=== PATIENT | female | born 1940 | race Caucasian/White ===

== ENCOUNTER 2021-07-02 18:27 | Inpatient (IN) | payer MEDICARE, BC ==
[2021-07-02] MEDS ORDERED: Sodium Chloride 0.9% 1,000 ML IV ONE (19:10)
[2021-07-02] MEDS ORDERED: Sodium Chloride 0.9% 2.5 ML Syringe FLUSH PRN (19:10)
[2021-07-02] MEDS ORDERED: Sodium Chloride 0.9% 10 ML Syringe FLUSH PRN (19:10)
[2021-07-02] MEDS ORDERED: Lactated Ringers 1,000 ML IV SCH ×2 (19:30)
[2021-07-02] MEDS ORDERED: Ondansetron 4 MG/2 ML SDV IVPUSH ONE (19:43)
[2021-07-02 19:49] LABS: CARBON DIOXIDE,CO2 14.7 mmol/L (21.0-32.0); POTASSIUM,K 4.4 mmol/L (3.5-5.1)
--- NOTE | 2021-07-02 20:44 | CR ---
INDICATION: Hypotension. TECHNIQUE: Chest 1 view. COMPARISON: Chest radiograph 10/31/2014. FINDINGS: No focal consolidation, pleural effusion, or pneumothorax. Normal heart size and pulmonary vascularity. Calcified tortuous aorta. Partially visualized right humerus hardware. Densities over the mid thoracic spine may represent vertebroplasty change. Thoracolumbar curve. Bilateral breast implants. IMPRESSION: No acute cardiopulmonary findings. Dictated by Bev Stevens MD @ 07/02/2021 8:42:41 PM (Electronically Signed)
--- NOTE | 2021-07-02 20:46 | CT ---
INDICATION: Pain following fall. CT HEAD WITHOUT CONTRAST TECHNIQUE: Multiple axial CT images were performed through the head without intravenous contrast administration. COMPARISON: No previous studies are currently available for comparison. FINDINGS: No acute intracranial hemorrhage is identified. No extra-axial collections are evident and there is no mass effect or midline shift. There is mild diffuse age-related brain atrophy. Ventricular size and configuration are within normal limits for the patient`s age. Marina-white differentiation is within normal limits. There is very mild patchy hypodensity in the periventricular white matter, a nonspecific finding which most likely reflects chronic small vessel ischemic change. There is a question of a small left frontal scalp contusion. Osseous structures are within normal limits and no fractures are seen. Included portions of the paranasal sinuses and mastoid air cells are normally aerated. IMPRESSION: 1. No acute intracranial abnormality identified. 2. Mild age-related brain atrophy and white matter hypodensity consistent with chronic small vessel ischemic change. KELI SCHMIDT MD [facility] Please note that all CT scans at this facility use dose modulation, iterative reconstruction, and/or weight-based dosing when appropriate to reduce radiation dose to as low as reasonably achievable. Dictated by: Giorgio Schmidt MD @ 07/02/2021 20:44:53 (Electronically Signed)
--- NOTE | 2021-07-02 21:03 | EDM.PDOC ---
ED HPI GENERAL MEDICAL PROBLEM - General Chief Complaint: General Stated Complaint: DEHYDRATION, RENAL FAILURE Time Seen by Provider: 07/02/21 19:02 - History of Present Illness INITIAL COMMENTS - FREE TEXT/NARRATIVE: HISTORY AND PHYSICAL: History of present illness: This is a 80-year-old female who presents ER today for further evaluation of persistent hypertension for the last 10 days. Patient's daughter is at bedside assisting with her history. She reports that her mother is baseline blood pressure is usually approximately 100-110 systolic, however over the last 10 days she reports that her mother's blood pressure has been in the mid 80s systolic. She reports that she spoke to her doctor yesterday to see if they can do something about her blood pressure and he recommended obtaining labs and reevaluation. Patient reports that her mother's labs came back with what appeared to be significant dehydration so her doctor recommended that she come to the emergency department for further evaluation of her dehydration. Patient had a bowel resection resulting in ileostomy approximately 1 month ago at [facility] secondary to "twisting of the bowel ". She reports that her mother was doing fairly well after her procedure up until a couple weeks ago. She reports that her mother has had decreased p.o. intake of both solids and liquids. They report that she has been started on dronabinol for her appetite and that has helped slightly. Daughter is also concerned that she been having significant amount of output from her ileostomy and feels that her mother is dehydrated both secondary to increased output and decreased p.o. input. She reports her mother has been feeling weak and dizzy and that on Friday she did fall down and hit her head. She reports that at that time her mother refused transfer to the ED for evaluation and CT scan. 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 Patient denies any recent fevers, shakes, chills, vomiting. She denies any recent cough cold or rhinorrhea. She denies any chest pain or shortness of breath. She denies any abdominal pain or discomfort. She does report that she has had nausea with decreased p.o. intake. She reports that she is had increased stool output from her ileostomy. She denies any melena or bright red blood in her stool. Patient does complain of dizziness and generalized weakness. Patient does have a significant bruising to her left forehead per her daughter. Daughter reports that she has not been started any new medications recently that would cause her blood pressure to drop. Review of systems: As per history of present illness and below otherwise all systems reviewed and negative. Past medical history: As per history of present illness and as reviewed below otherwise noncontributory. Surgical history: As per history of present illness and as reviewed below otherwise noncontributory. Social history: No reported history of drug abuse. Family history: As per history of present illness and as reviewed below otherwise noncontributory. Physical exam: This patient was seen and evaluated during the 2019 SARS-CoV-2 novel coronavirus pandemic period. Community viral transmission is ongoing at time of this encounter and the emergency department is operating under pandemic response procedures. Constitutional: Patient is oriented to person, place, and time. Appears well- developed and well-nourished. No distress. HEENT: Moist mucous membranes Head: Normocephalic and atraumatic Eyes: Right eye exhibits no discharge. Left eye exhibits no discharge. No scleral icterus Neck: Normal range of motion. No tracheal deviation present. Cardiovascular: Normal rate and regular rhythm. Pulmonary: Effort normal, no respiratory distress. Abd: Soft, nondistended, no rebound/guarding, no psoas or obturator signs, no tenderness at Mcberney's point, no Guthrie's sign. Pt does not present with an exam that would be consistent with an acute surgical abdomen at this time. Nontender to palpation. Musculoskeletal: Normal range of motion Neurologic: Alert and oriented to person, place and time. Skin: [place], warm and dry. Psychiatric: Normal mood and affect. Behavior is normal. Judgment and thought content normal. Nursing note and vital signs have been reviewed Diagnostics: Patient's labs are significant for a white blood cell count of 10, hemoglobin of 10.5/30.2. Patient has a sodium of 131. Her BUN and creatinine with 74 and 2.2 which is significantly elevated at her baseline per the daughter. Patient has a bicarb of 15. Patient's anion gap is 17. Patient did have a lipase of 753. Patient's vital signs in the ER were significant for a blood pressure of 67/40 on arrival. After IV hydration her blood pressure is currently 94/50. CT the head reveals no acute intracranial abnormality. There is mild age- related brain atrophy and white matter hypodensity consistent with chronic small vessel ischemic changes. Chest x-ray reveals no significant pathology. Therapeutics: Zofran 4 mg IV to assist her with her nausea LR x2 L secondary to dehydration and hypotension Assessment and plan: Is an 80-year-old female who presents ER today secondary to hypotension and dehydration. Patient is status post bowel resection approximately 1 month ago with an ileostomy that appears to have increased output. Daughter reports that she is given an antidiarrhea medication once a day to assist with the increased output. Patient also has decreased p.o. intake and has been given antinausea medicines at home to assist with that. Despite optimizing therapy at home, the patient still feels extremely weak and dizzy and her blood pressure has been lo w. Patient had labs drawn today as an outpatient and revealed an elevated BUN and creatinine consistent with dehydration. Given the patient's severe dehydration, I feel patient would benefit from ad mission to assist her with optimizing oral intake and decreasing ileostomy output prior to discharge. Patient did feel weak and dizzy on Friday and did have an episode of falling while on Xarelto. Patient CT scan of her head was unremarkable. Definitive disposition and diagnosis as appropriate pending reevaluation and review of above. back Pain Score (Numeric/FACES): 4 - Related Data Allergies Allergy/AdvReac Type Severity Reaction Status Date / Time No Known Allergies Allergy Verified 07/02/21 18:51 Home Meds: Home Meds Melatonin 1 tab PO BEDTIME 07/02/21 [History] Mirtazapine 45 mg PO BEDTIME 07/02/21 [History] Ondansetron [Zofran ODT] 1 tab PO DAILY PRN 07/02/21 [History] Rivaroxaban [Xarelto] 20 mg PO DAILY 07/02/21 [History] Rosuvastatin [Crestor] 20 mg PO DAILY 07/02/21 [History] Sertraline [Zoloft] 100 mg PO DAILY 07/02/21 [History] dronabinoL [Dronabinol] 10 mg PO DAILY 07/02/21 [History] Past Medical History Cardiovascular History: Reports: Blood Clots/VTE/DVT Genitourinary History: Reports: Other (See Below) Other Genitourinary History: [employer]PERINTENDENT History: Reports: Musculoskeletal History: Reports: Arthritis, Back Pain, Chronic Psychiatric History: Reports: Anxiety, Depression Endocrine/Metabolic History: Reports: Hypothyroidism - Past Surgical History GI Surgical History: Reports: Cholecystectomy, Other (See Below) Other GI Surgeries/Procedures: Hemicolectomy Musculoskeletal Surgical History: Reports: Shoulder Surgery Social & Family History - Family History Family Medical History: No Pertinent Family History - Tobacco Use Tobacco Use Status *Q: Never Tobacco User - Recreational Drug Use Recreational Drug Use: No ED ROS GENERAL - Review of Systems Review Of Systems: See Below ED EXAM, GENERAL - Physical Exam Exam: See Below #1 Interpretation EKG Interpretation Comments: July 02, 2021 10:28 PM: EKG: As interpreted by ER physician: [place]: Nonspecific ST-T wave abnormalities Normal axis No evidence of ST elevation IN Normal sinus rhythm heart rate of 71 Course - Vital Signs Last Recorded V/S: Last Vital Signs Temp 98.2 F 07/03/21 04:35 Pulse 67 07/03/21 04:35 Resp 18 07/03/21 04:35 BP 88/44 L 07/03/21 04:35 Pulse Ox 96 07/03/21 04:35 - Orders/Labs/Meds Orders: Active Orders 24 hr Category Date Time Status Vaccine to be Administered/Admin Charge [RC] ASDIRECTED Care 07/03/21 00:22 Active CULTURE BLOOD [BC] Stat Lab 07/02/21 19:15 Received CULTURE BLOOD [BC] Stat Lab 07/02/21 19:37 Results FLU Vacc [id number](65YR UP)/PF [Fluzone High-Dose Quad Med 07/03/21 10:00 Once 2020-] 240 mcg IM .ONCE ONE Lactated Ringers [Ringers, Lactated] 1,000 ml Med 07/02/21 19:30 Active IV .BOLUS Lactated Ringers [Ringers, Lactated] 1,000 ml Med 07/02/21 19:30 Active IV .BOLUS Loperamide [Imodium] Med 07/03/21 00:40 Active 2 mg PO Q6H PRN Melatonin Med 07/03/21 21:00 Active 9 mg PO BEDTIME Mirtazapine [Remeron] Med 07/03/21 21:00 Active 45 mg PO BEDTIME Rivaroxaban [Xarelto] Med 07/03/21 09:00 Pending 20 mg PO DAILY Rosuvastatin [Crestor] Med 07/03/21 09:00 Active 20 mg PO DAILY Sertraline [Zoloft] Med 07/03/21 09:00 Active 100 mg PO DAILY Sodium Chloride 0.9% [Saline Flush] Med 07/02/21 19:10 Active 10 ml FLUSH ASDIRECTED PRN Sodium Chloride 0.9% [Saline Flush] Med 07/02/21 19:10 Active 2.5 ml FLUSH ASDIRECTED PRN Blood Culture x2 Reflex Set [OM.PC] Stat Ot 07/02/21 19:11 Ordered Saline Lock Insert [OM.PC] Stat Ot 07/02/21 19:11 Ordered Medication Orders Acetaminophen (Acetaminophen 325 Mg Tab) 650 mg PO Q4H PRN PRN Reason: Pain (Mild 1-3)/fever Lactated Ringer's (Ringers, Lactated) 1,000 mls @ 999 mls/hr IV .BOLUS [facility] Last Admin: 07/02/21 20:40 Dose: 999 mls/hr Documented by: MIANMOR Lactated Ringer's (Ringers, Lactated) 1,000 mls @ 999 mls/hr IV .BOLUS VIRGEN Last Admin: 07/02/21 22:36 Dose: 999 mls/hr Documented by: MIANMOR Sodium Chloride (Normal Saline) 1,000 mls @ 125 mls/hr IV ASDIRECTED [facility] Last Admin: 07/03/21 01:34 Dose: 125 mls/hr Documented by: CRESCENCIO Ceftriaxone Sodium/Dextrose (Rocephin In Dextrose,Iso-Osm 1 Gm/50 Ml) 50 mls @ 50 mls/hr IV Q24H [facility] Last Admin: 07/03/21 01:30 Dose: 50 mls/hr Documented by: CRESCENCIO Influenza Virus Vaccine (Flu Vacc [id number](65yr Up)/Pf 240 Mcg/0.7 Ml Syringe) 240 mcg IM .ONCE ONE Stop: 07/03/21 10:01 Loperamide HCl (Loperamide 2 Mg Cap) 2 mg PO Q6H PRN PRN Reason: Diarrhea Melatonin (Melatonin 3 Mg Tab) 9 mg PO BEDTIME VIRGEN Mirtazapine (Mirtazapine 15 Mg Tab) 45 mg PO BEDTIME VIRGEN Non-Formulary Medication (Rivaroxaban [Xarelto]) 20 mg PO DAILY VIRGEN Rosuvastatin Calcium (Rosuvastatin 10 Mg Tab) 20 mg PO DAILY VIRGEN Sertraline HCl (Sertraline 100 Mg Tab) 100 mg PO DAILY VIRGEN Sodium Chloride (Sodium Chloride 0.9% 10 Ml Syringe) 10 ml FLUSH ASDIRECTED PRN PRN Reason: Keep Vein Open Last Admin: 07/02/21 20:41 Dose: 10 ml Documented by: SERGIO Sodium Chloride (Sodium Chloride 0.9% 2.5 Ml Syringe) 2.5 ml FLUSH ASDIRECTED PRN PRN Reason: Keep Vein Open Last Admin: 07/02/21 20:41 Dose: 2.5 ml Documented by: SERGIO Labs: Laboratory Tests 07/02/21 07/02/21 07/02/21 Range/Units 19:15 19:15 19:15 WBC 10.56 (4.0-11.0) K/uL RBC 3.37 L (4.30-5.90) M/uL Hgb 10.5 L (12.0-16.0) g/dL Hct 30.2 L (36.0-46.0) % MCV 89.6 (80.0-98.0) fL MCH 31.2 (27.0-32.0) pg MCHC 34.8 (31.0-37.0) g/dL RDW Std Deviation 48.3 (28.0-62.0) fl RDW Coeff of Sofia 15 (11.0-15.0) % Plt Count 177 (150-400) K/uL MPV 10.40 (7.40-12.00) fL Neut % (Auto) 79.6 (48.0-80.0) % Lymph % (Auto) 14.8 L (16.0-40.0) % [place] % (Auto) 4.8 (0.0-15.0) % Eos % (Auto) 0.6 (0.0-7.0) % Baso % (Auto) 0.2 (0.0-1.5) % Neut # (Auto) 8.4 H (1.4-5.7) K/uL Lymph # (Auto) 1.6 (0.6-2.4) K/uL [place] # (Auto) 0.5 (0.0-0.8) K/uL Eos # (Auto) 0.1 (0.0-0.7) K/uL Baso # (Auto) 0.0 (0.0-0.1) K/uL Nucleated RBC % 0.0 /100WBC Nucleated RBCs # 0 K/uL Sodium 131 L (136-145) mmol/L Potassium 4.4 (3.5-5.1) mmol/L Chloride 99 (98-107) mmol/L Carbon Dioxide 14.7 L (21.0-32.0) mmol/L BUN 74 H (7.0-18.0) mg/dL Creatinine 2.2 H (0.6-1.0) mg/dL Est Cr Clr Drug Dosing 13.21 mL/min Estimated GFR (MDRD) 21.4 ml/min Glucose 135 H (74-106) mg/dL Lactic Acid 1.8 (0.4-2.0) mmol/L Calcium 9.0 (8.5-10.1) mg/dL Magnesium 2.6 H (1.8-2.4) mg/dL Total Bilirubin 0.2 (0.2-1.0) mg/dL AST 27 (15-37) IU/L ALT 30 (14-63) IU/L Alkaline Phosphatase 96 (46-116) U/L Total Protein 7.0 (6.4-8.2) g/dL Albumin 3.4 (3.4-5.0) g/dL Globulin 3.6 (2.6-4.0) g/dL Albumin/Globulin Ratio 0.9 (0.9-1.6) Lipase 753 H (73-393) U/L Urine Color Urine Appearance Urine pH (5.0-8.0) Ur Specific [place] (1.001-1.035) Urine Protein (NEGATIVE) mg/dL Urine Glucose (UA) (NEGATIVE) mg/dL Urine Ketones (NEGATIVE) mg/dL Urine Occult Blood (NEGATIVE) Urine Nitrite (NEGATIVE) Urine Bilirubin (NEGATIVE) Urine Urobilinogen (<2.0) EU/dL Ur Leukocyte Esterase (NEGATIVE) U Hyaline Cast (Auto) (0-2/LPF) Urine RBC (0-2/HPF) Urine WBC (0-5/HPF) Ur Epithelial Cells (NONE-FEW) Urine Bacteria (NEGATIVE) SARS-CoV-2 RNA (BEAU) (NEGATIVE) 07/02/21 07/02/21 Range/Units 20:19 23:48 WBC (4.0-11.0) K/uL RBC (4.30-5.90) M/uL Hgb (12.0-16.0) g/dL Hct (36.0-46.0) % MCV (80.0-98.0) fL MCH (27.0-32.0) pg MCHC (31.0-37.0) g/dL RDW Std Deviation (28.0-62.0) fl RDW Coeff of Sofia (11.0-15.0) % Plt Count (150-400) K/uL MPV (7.40-12.00) fL Neut % (Auto) (48.0-80.0) % Lymph % (Auto) (16.0-40.0) % [place] % (Auto) (0.0-15.0) % Eos % (Auto) (0.0-7.0) % Baso % (Auto) (0.0-1.5) % Neut # (Auto) (1.4-5.7) K/uL Lymph # (Auto) (0.6-2.4) K/uL [place] # (Auto) (0.0-0.8) K/uL Eos # (Auto) (0.0-0.7) K/uL Baso # (Auto) (0.0-0.1) K/uL Nucleated RBC % /100WBC Nucleated RBCs # K/uL Sodium (136-145) mmol/L Potassium (3.5-5.1) mmol/L Chloride (98-107) mmol/L Carbon Dioxide (21.0-32.0) mmol/L BUN (7.0-18.0) mg/dL Creatinine (0.6-1.0) mg/dL Est Cr Clr Drug Dosing mL/min Estimated GFR (MDRD) ml/min Glucose (74-106) mg/dL Lactic Acid (0.4-2.0) mmol/L Calcium (8.5-10.1) mg/dL Magnesium (1.8-2.4) mg/dL Total Bilirubin (0.2-1.0) mg/dL AST (15-37) IU/L ALT (14-63) IU/L Alkaline Phosphatase (46-116) U/L Total Protein (6.4-8.2) g/dL Albumin (3.4-5.0) g/dL Globulin (2.6-4.0) g/dL Albumin/Globulin Ratio (0.9-1.6) Lipase (73-393) U/L Urine Color YELLOW Urine Appearance SLT CLOUDY Urine pH 6.0 (5.0-8.0) Ur Specific [place] 1.020 (1.001-1.035) Urine Protein TRACE H (NEGATIVE) mg/dL Urine Glucose (UA) NEGATIVE (NEGATIVE) mg/dL Urine Ketones NEGATIVE (NEGATIVE) mg/dL Urine Occult Blood TRACE-INTACT H (NEGATIVE) Urine Nitrite NEGATIVE (NEGATIVE) Urine Bilirubin NEGATIVE (NEGATIVE) Urine Urobilinogen 0.2 (<2.0) EU/dL Ur Leukocyte Esterase MODERATE H (NEGATIVE) U Hyaline Cast (Auto) 0-2 (0-2/LPF) Urine RBC 1-3 (0-2/HPF) Urine WBC 20-30 (0-5/HPF) Ur Epithelial Cells OCCASIONAL (NONE-FEW) Urine Bacteria FEW (NEGATIVE) SARS-CoV-2 RNA (BEAU) NEGATIVE (NEGATIVE) Meds: Medications Generic Name Dose Route Start Last Admin Trade Name Freq PRN Reason Stop Dose Admin Acetaminophen 650 mg 07/03/21 00:41 Acetaminophen 325 Mg Tab PO Q4H PRN Pain (Mild 1-3)/fever Lactated Ringer's 1,000 mls @ 999 mls/hr 07/02/21 19:30 07/02/21 20:40 Ringers, Lactated IV 999 mls/hr .BOLUS VIRGEN Administration Lactated Ringer's 1,000 mls @ 999 mls/hr 07/02/21 19:30 07/02/21 22:36 Ringers, Lactated IV 999 mls/hr .BOLUS VIRGEN Administration Sodium Chloride 1,000 mls @ 125 mls/hr 07/03/21 00:45 07/03/21 01:34 Normal Saline IV 125 mls/hr ASDIRECTED VIRGEN Administration Ceftriaxone Sodium/Dextrose 50 mls @ 50 mls/hr 07/03/21 02:00 07/03/21 01:30 Rocephin In Dextrose,Iso-Osm 1 Gm/50 Ml IV 50 mls/hr Q24H VIRGEN Administration Influenza Virus Vaccine 240 mcg 07/03/21 10:00 Flu Vacc [id number](65yr Up)/Pf 240 Mcg/0.7 Ml Syringe IM 07/03/21 10:01 .ONCE ONE Loperamide HCl 2 mg 07/03/21 00:40 Loperamide 2 Mg Cap PO Q6H PRN Diarrhea Melatonin 9 mg 07/03/21 21:00 Melatonin 3 Mg Tab PO BEDTIME VIRGEN Mirtazapine 45 mg 07/03/21 21:00 Mirtazapine 15 Mg Tab PO BEDTIME VIRGEN Non-Formulary Medication 20 mg 07/03/21 09:00 Rivaroxaban [Xarelto] PO DAILY [facility] Rosuvastatin Calcium 20 mg 07/03/21 09:00 Rosuvastatin 10 Mg Tab PO DAILY [facility] Sertraline HCl 100 mg 07/03/21 09:00 Sertraline 100 Mg Tab PO DAILY VIRGEN Sodium Chloride 10 ml 07/02/21 19:10 07/02/21 20:41 Sodium Chloride 0.9% 10 Ml Syringe FLUSH 10 ml ASDIRECTED PRN Administration Keep Vein Open Sodium Chloride 2.5 ml 07/02/21 19:10 07/02/21 20:41 Sodium Chloride 0.9% 2.5 Ml Syringe FLUSH 2.5 ml ASDIRECTED PRN Administration Keep Vein Open Discontinued Medications Generic Name Dose Route Start Last Admin Trade Name Freq PRN Reason Stop Dose Admin Sodium Chloride 1,000 mls @ 999 mls/hr 07/02/21 19:10 07/02/21 19:30 Normal Saline IV 07/02/21 20:10 999 mls/hr .Bolus ONE Administration Ceftriaxone Sodium 1 gm/ 50 mls @ 100 mls/hr 07/03/21 01:00 Sodium Chloride IV Q24H VIRGEN Ceftriaxone Sodium/Dextrose Confirm 07/03/21 01:09 Rocephin In Dextrose,Iso-Osm 1 Gm/50 Ml Administered 07/03/21 01:10 Dose 50 mls @ as directed .ROUTE .STK-MED ONE Influenza Virus Vaccine 1 each 07/03/21 00:20 Pharmacy To Dose - Influenza Vaccine IM 07/03/21 00:21 ONETIME ONE Morphine Sulfate 2 mg 07/02/21 22:21 07/02/21 22:43 Morphine 4 Mg/Ml Syringe IVPUSH 07/02/21 22:22 Not Given ONETIME ONE Ondansetron HCl 4 mg 07/02/21 19:43 07/02/21 20:40 Ondansetron 4 Mg/2 Ml Sdv IVPUSH 07/02/21 19:44 4 mg ONETIME ONE Administration Departure - Departure Time of Disposition: 22:00 Disposition: Refer to Observation Condition: Good Clinical Impression: Dehydration, Hypotension - Discharge Information Sepsis Event Note (ED) - Evaluation Sepsis Screening Result: No Definite Risk - Focused Exam Vital Signs: Vital Signs Temp Pulse Resp BP Pulse Ox 07/02/21 22:48 74 18 96/57 L 99 07/02/21 21:20 84 100/59 L 98 07/02/21 20:42 75 16 94/50 L 99 07/02/21 18:47 99.1 F 89 22 H 67/40 L 100 - My Orders Last 24 Hours: My Active Orders 07/02/21 19:10 Sodium Chloride 0.9% [Saline Flush] 10 ml FLUSH ASDIRECTED PRN Sodium Chloride 0.9% [Saline Flush] 2.5 ml FLUSH ASDIRECTED PRN 07/02/21 19:11 Blood Culture x2 Reflex Set [OM.PC] Stat Saline Lock Insert [OM.PC] Stat 07/02/21 19:15 CULTURE BLOOD [BC] Stat 07/02/21 19:30 Lactated Ringers [Ringers, Lactated] 1,000 ml IV .BOLUS Lactated Ringers [Ringers, Lactated] 1,000 ml IV .BOLUS 07/02/21 19:37 CULTURE BLOOD [BC] Stat - Assessment/Plan Last 24 Hours: My Active Orders 07/02/21 19:10 Sodium Chloride 0.9% [Saline Flush] 10 ml FLUSH ASDIRECTED PRN Sodium Chloride 0.9% [Saline Flush] 2.5 ml FLUSH ASDIRECTED PRN 07/02/21 19:11 Blood Culture x2 Reflex Set [OM.PC] Stat Saline Lock Insert [OM.PC] Stat 07/02/21 19:15 CULTURE BLOOD [BC] Stat 07/02/21 19:30 Lactated Ringers [Ringers, Lactated] 1,000 ml IV .BOLUS Lactated Ringers [Ringers, Lactated] 1,000 ml IV .BOLUS 07/02/21 19:37 CULTURE BLOOD [BC] Stat
--- NOTE | 2021-07-02 22:16 | CT ---
INDICATION: Abdominal pain. Elevated lipase. COMPARISON: None. TECHNIQUE: CT of the abdomen and pelvis without contrast. FINDINGS: Imaged lung bases are unremarkable. Bilateral breast implants. Noncontrast evaluation of the liver, spleen and adrenal glands are unremarkable. Cholecystectomy. Noncontrast appearance of the pancreas is unremarkable with no significant fat stranding. No obstructing renal calculus or hydronephrosis. Atherosclerotic abdominal aorta. Diverticulosis. Right-sided ostomy. Pessary. Distended bladder. No bowel obstruction. No enlarged abdominal or pelvic lymph nodes. Bones are demineralized. Degenerative changes in the spine. Age-indeterminate compression deformity of L1 vertebral body. IMPRESSION: 1. Noncontrast appearance of the pancreas is unremarkable. 2. Age-indeterminate compression fracture deformity of L1. 3. Diverticulosis. Please note that all CT scans at this facility use dose modulation, iterative reconstruction, and/or weight-based dosing when appropriate to reduce radiation dose to as low as reasonably achievable. Dictated by Jaycob Stapleton MD @ 07/02/2021 10:15:06 PM (Electronically Signed)
[2021-07-02] MEDS ORDERED: Morphine 4 MG/ML Syringe IVPUSH ONE (22:21)
[2021-07-03] MEDS ORDERED: Loperamide 2 MG Cap PO PRN (00:40)
--- NOTE | 2021-07-03 00:47 | PCM.HP.2 ---
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 She presents to the ED with complaint of lower blood pressures. PAtient has been taking antidiarrhea medicaitions due to high ostomy output. PAtient has not been eating or drinking much and has had low urine output. She has had generalized weakness. She denies any abominal pain. Blood pressures have been in the 60s sytolic in the ED but have improved after IV hydration. back Pain Score (Numeric/FACES): 4 - Related Data Allergies/Adverse Reactions: Allergies Allergy/AdvReac Type Severity Reaction Status Date / Time No Known Allergies Allergy Verified 07/02/21 18:51 Home Medications: Home Meds Melatonin 1 tab PO BEDTIME 07/02/21 [History] Mirtazapine 45 mg PO BEDTIME 07/02/21 [History] Ondansetron [Zofran ODT] 1 tab PO DAILY PRN 07/02/21 [History] Rivaroxaban [Xarelto] 20 mg PO DAILY 07/02/21 [History] Rosuvastatin [Crestor] 20 mg PO DAILY 07/02/21 [History] Sertraline [Zoloft] 100 mg PO DAILY 07/02/21 [History] dronabinoL [Dronabinol] 10 mg PO DAILY 07/02/21 [History] Past Medical History HEENT History: Reports: None Cardiovascular History: Reports: Blood Clots/VTE/DVT Gastrointestinal History: Reports: Bowel Obstruction Genitourinary History: Reports: Other (See Below) Other Genitourinary History: P[employer] History: Reports: Musculoskeletal History: Reports: Arthritis, Back Pain, Chronic Psychiatric History: Reports: Anxiety, Depression Endocrine/Metabolic History: Reports: Hypothyroidism - Infectious Disease History Infectious Disease History: Reports: Chicken Pox - Past Surgical History HEENT Surgical History: Reports: None Cardiovascular Surgical History: Reports: None GI Surgical History: Reports: Cholecystectomy, Other (See Below) Other GI Surgeries/Procedures: Hemicolectomy and ileostomy Female Surgical History: Reports: None Musculoskeletal Surgical History: Reports: Shoulder Surgery Social & Family History - Family History Family Medical History: No Pertinent Family History - Tobacco Use Tobacco Use Status *Q: Never Tobacco User Second Hand Smoke Exposure: No - Caffeine Use Caffeine Use: Reports: None - Recreational Drug Use Recreational Drug Use: No H&P Review of Systems - Review of Systems: Review Of Systems: Comprehensive ROS is negative, except as noted in HPI. Exam - Exam Exam: See Below - Vital Signs Vital Signs: Last Vital Signs Temp 37.3 C 07/02/21 18:47 Pulse 74 07/02/21 22:48 Resp 18 07/02/21 22:48 BP 96/57 L 07/02/21 22:48 Pulse Ox 99 07/02/21 22:48 Weight: 44.815 kg - Exam General: Alert, Oriented HEENT: Mucosa Moist & [place] Neck: Supple Lungs: Clear to Auscultation, Normal Respiratory Effort Cardiovascular: Regular Rate, Regular Rhythm GI/Abdominal Exam: Normal Bowel Sounds, Soft, Non-Tender Extremities: Non-Tender, No Pedal Edema Skin: Warm, Dry, Intact Neurological: No: Focal Deficit - Patient Data Lab Results Last 24 hrs: Laboratory Results - last 24 hr 07/02/21 07/02/21 07/02/21 Range/Units 19:15 19:15 19:15 WBC 10.56 (4.0-11.0) K/uL RBC 3.37 L (4.30-5.90) M/uL Hgb 10.5 L (12.0-16.0) g/dL Hct 30.2 L (36.0-46.0) % MCV 89.6 (80.0-98.0) fL MCH 31.2 (27.0-32.0) pg MCHC 34.8 (31.0-37.0) g/dL RDW Std Deviation 48.3 (28.0-62.0) fl RDW Coeff of Sofia 15 (11.0-15.0) % Plt Count 177 (150-400) K/uL MPV 10.40 (7.40-12.00) fL Neut % (Auto) 79.6 (48.0-80.0) % Lymph % (Auto) 14.8 L (16.0-40.0) % [place] % (Auto) 4.8 (0.0-15.0) % Eos % (Auto) 0.6 (0.0-7.0) % Baso % (Auto) 0.2 (0.0-1.5) % Neut # (Auto) 8.4 H (1.4-5.7) K/uL Lymph # (Auto) 1.6 (0.6-2.4) K/uL [place] # (Auto) 0.5 (0.0-0.8) K/uL Eos # (Auto) 0.1 (0.0-0.7) K/uL Baso # (Auto) 0.0 (0.0-0.1) K/uL Nucleated RBC % 0.0 /100WBC Nucleated RBCs # 0 K/uL Sodium 131 L (136-145) mmol/L Potassium 4.4 (3.5-5.1) mmol/L Chloride 99 (98-107) mmol/L Carbon Dioxide 14.7 L (21.0-32.0) mmol/L BUN 74 H (7.0-18.0) mg/dL Creatinine 2.2 H (0.6-1.0) mg/dL Est Cr Clr Drug Dosing 13.21 mL/min Estimated GFR (MDRD) 21.4 ml/min Glucose 135 H (74-106) mg/dL Lactic Acid 1.8 (0.4-2.0) mmol/L Calcium 9.0 (8.5-10.1) mg/dL Magnesium 2.6 H (1.8-2.4) mg/dL Total Bilirubin 0.2 (0.2-1.0) mg/dL AST 27 (15-37) IU/L ALT 30 (14-63) IU/L Alkaline Phosphatase 96 (46-116) U/L Total Protein 7.0 (6.4-8.2) g/dL Albumin 3.4 (3.4-5.0) g/dL Globulin 3.6 (2.6-4.0) g/dL Albumin/Globulin Ratio 0.9 (0.9-1.6) Lipase 753 H (73-393) U/L Urine Color Urine Appearance Urine pH (5.0-8.0) Ur Specific [place] (1.001-1.035) Urine Protein (NEGATIVE) mg/dL Urine Glucose (UA) (NEGATIVE) mg/dL Urine Ketones (NEGATIVE) mg/dL Urine Occult Blood (NEGATIVE) Urine Nitrite (NEGATIVE) Urine Bilirubin (NEGATIVE) Urine Urobilinogen (<2.0) EU/dL Ur Leukocyte Esterase (NEGATIVE) U Hyaline Cast (Auto) (0-2/LPF) Urine RBC (0-2/HPF) Urine WBC (0-5/HPF) Ur Epithelial Cells (NONE-FEW) Urine Bacteria (NEGATIVE) SARS-CoV-2 RNA (BEAU) (NEGATIVE) 07/02/21 07/02/21 Range/Units 20:19 23:48 WBC (4.0-11.0) K/uL RBC (4.30-5.90) M/uL Hgb (12.0-16.0) g/dL Hct (36.0-46.0) % MCV (80.0-98.0) fL MCH (27.0-32.0) pg MCHC (31.0-37.0) g/dL RDW Std Deviation (28.0-62.0) fl RDW Coeff of Sofia (11.0-15.0) % Plt Count (150-400) K/uL MPV (7.40-12.00) fL Neut % (Auto) (48.0-80.0) % Lymph % (Auto) (16.0-40.0) % [place] % (Auto) (0.0-15.0) % Eos % (Auto) (0.0-7.0) % Baso % (Auto) (0.0-1.5) % Neut # (Auto) (1.4-5.7) K/uL Lymph # (Auto) (0.6-2.4) K/uL [place] # (Auto) (0.0-0.8) K/uL Eos # (Auto) (0.0-0.7) K/uL Baso # (Auto) (0.0-0.1) K/uL Nucleated RBC % /100WBC Nucleated RBCs # K/uL Sodium (136-145) mmol/L Potassium (3.5-5.1) mmol/L Chloride (98-107) mmol/L Carbon Dioxide (21.0-32.0) mmol/L BUN (7.0-18.0) mg/dL Creatinine (0.6-1.0) mg/dL Est Cr Clr Drug Dosing mL/min Estimated GFR (MDRD) ml/min Glucose (74-106) mg/dL Lactic Acid (0.4-2.0) mmol/L Calcium (8.5-10.1) mg/dL Magnesium (1.8-2.4) mg/dL Total Bilirubin (0.2-1.0) mg/dL AST (15-37) IU/L ALT (14-63) IU/L Alkaline Phosphatase (46-116) U/L Total Protein (6.4-8.2) g/dL Albumin (3.4-5.0) g/dL Globulin (2.6-4.0) g/dL Albumin/Globulin Ratio (0.9-1.6) Lipase (73-393) U/L Urine Color YELLOW Urine Appearance SLT CLOUDY Urine pH 6.0 (5.0-8.0) Ur Specific [place] 1.020 (1.001-1.035) Urine Protein TRACE H (NEGATIVE) mg/dL Urine Glucose (UA) NEGATIVE (NEGATIVE) mg/dL Urine Ketones NEGATIVE (NEGATIVE) mg/dL Urine Occult Blood TRACE-INTACT H (NEGATIVE) Urine Nitrite NEGATIVE (NEGATIVE) Urine Bilirubin NEGATIVE (NEGATIVE) Urine Urobilinogen 0.2 (<2.0) EU/dL Ur Leukocyte Esterase MODERATE H (NEGATIVE) U Hyaline Cast (Auto) 0-2 (0-2/LPF) Urine RBC 1-3 (0-2/HPF) Urine WBC 20-30 (0-5/HPF) Ur Epithelial Cells OCCASIONAL (NONE-FEW) Urine Bacteria FEW (NEGATIVE) SARS-CoV-2 RNA (BEAU) NEGATIVE (NEGATIVE) Result Diagrams: 07/02/21 19:15 07/02/21 19:15 Jonel Results Last 24 hrs: Microbiology 07/02/21 19:37 Anaerobic Blood Culture - Final Blood - Venous - Lab Draw Sepsis Event Note - Evaluation Sepsis Screening Result: No Definite Risk - Focused Exam Vital Signs: Vital Signs Temp Pulse Resp BP Pulse Ox 07/02/21 22:48 74 18 96/57 L 99 07/02/21 21:20 84 100/59 L 98 07/02/21 20:42 75 16 94/50 L 99 07/02/21 18:47 37.3 C 89 22 H 67/40 L 100 - Problem List (1) UTI (urinary tract infection) SNOMED Code(s): 81121970 ICD Code: N39.0 - URINARY TRACT INFECTION, SITE NOT SPECIFIED Status: Acute Current Visit: Yes (2) Dehydration SNOMED Code(s): 59900585 ICD Code: E86.0 - DEHYDRATION Status: Acute Current Visit: Yes (3) Short gut syndrome SNOMED Code(s): 71560168 ICD Code: K91.2 - POSTSURGICAL MALABSORPTION, NOT ELSEWHERE CLASSIFIED Status: Acute Current Visit: Yes Problem List Initiated/Reviewed/Updated: Yes Orders Last 24hrs: Active Orders 24 hr Category Date Time Status Patient Status [ADT] Routine ADT 07/03/21 00:41 Ordered Antiembolic Devices [RC] PER UNIT ROUTINE Care 07/03/21 00:42 Ordered Intake and Output [RC] QSHIFT Care 07/03/21 00:42 Ordered Oxygen Therapy [RC] PRN Care 07/03/21 00:41 Ordered Up ad Gloria [RC] ASDIRECTED Care 07/03/21 00:41 Ordered VTE/DVT Education [RC] PER UNIT ROUTINE Care 07/03/21 00:41 Ordered Vaccine to be Administered/Admin Charge [RC] ASDIRECTED Care 07/03/21 00:22 Active Vital Signs [RC] Q4H Care 07/03/21 00:41 Ordered PT Evaluation and Treatment [CONS] Routine Cons 07/03/21 00:41 Ordered Regular Diet [DIET] Diet 07/03/21 Breakfast Ordered CBC WITH AUTO DIFF [HEME] AM Lab 07/03/21 05:11 Ordered COMPREHENSIVE METABOLIC PN,CMP [CHEM] AM Lab 07/03/21 05:11 Ordered CULTURE BLOOD [BC] Stat Lab 07/02/21 19:15 Received CULTURE BLOOD [BC] Stat Lab 07/02/21 19:37 Results Acetaminophen [TylenoL] Med 07/03/21 00:41 Ordered 650 mg PO Q4H PRN FLU Vacc [id number](65YR UP)/PF [Fluzone High-Dose Quad Med 07/03/21 10:00 Once ] 240 mcg IM .ONCE ONE Lactated Ringers [Ringers, Lactated] 1,000 ml Med 07/02/21 19:30 Active IV .BOLUS Lactated Ringers [Ringers, Lactated] 1,000 ml Med 07/02/21 19:30 Active IV .BOLUS Loperamide [Imodium] Med 07/03/21 00:40 Ordered 2 mg PO Q6H PRN Melatonin [Melatonin] Med 07/03/21 00:39 Ordered 1 tab PO BEDTIME Mirtazapine [Mirtazapine] Med 07/03/21 00:39 Ordered 45 mg PO BEDTIME Rivaroxaban [Xarelto] Med 07/03/21 09:00 Ordered 20 mg PO DAILY Rosuvastatin Med 07/03/21 09:00 Ordered 20 mg PO DAILY Sertraline [Zoloft] Med 07/03/21 09:00 Ordered 100 mg PO DAILY Sodium Chloride 0.9% @ 125 MLS/HR (1000ml) Med 07/03/21 00:45 Ordered Sodium Chloride 0.9% [Normal Saline] 1,000 ml IV ASDIRECTED Sodium Chloride 0.9% [Saline Flush] Med 07/02/21 19:10 Active 10 ml FLUSH ASDIRECTED PRN Sodium Chloride 0.9% [Saline Flush] Med 07/02/21 19:10 Active 2.5 ml FLUSH ASDIRECTED PRN cefTRIAXone [Rocephin] 1 gm Med 07/03/21 00:45 Ordered Sodium Chloride 0.9% [Normal Saline] 50 ml IV Q24H Blood Culture x2 Reflex Set [OM.PC] Stat Ot 07/02/21 19:11 Ordered Saline Lock Insert [OM.PC] Stat Ot 07/02/21 19:11 Ordered Sequential Compression Device [OM.PC] Per Unit Routine Ot 07/03/21 00:42 Ordered Resuscitation Status Routine Resus Stat 07/03/21 00:41 Ordered Medication Orders Lactated Ringer's (Ringers, Lactated) 1,000 mls @ 999 mls/hr IV .BOLUS VIRGEN Last Admin: 07/02/21 20:40 Dose: 999 mls/hr Documented by: MIANMOR Lactated Ringer's (Ringers, Lactated) 1,000 mls @ 999 mls/hr IV [facility]US [facility] Last Admin: 07/02/21 22:36 Dose: 999 mls/hr Documented by: VANCMOR Ceftriaxone Sodium 1 gm/ (Sodium Chloride) 50 mls @ 100 mls/hr IV Q24H [facility] Influenza Virus Vaccine (Flu Vacc [id number](65yr Up)/Pf 240 Mcg/0.7 Ml Syringe) 240 mcg IM .ONCE ONE Stop: 07/03/21 10:01 Loperamide HCl (Loperamide 2 Mg Cap) 2 mg PO Q6H PRN PRN Reason: Diarrhea Mirtazapine (Mirtazapine 15 Mg Tab) 45 mg PO BEDTIME VIRGEN Non-Formulary Medication (Rivaroxaban [Xarelto]) 20 mg PO DAILY [facility]IRGEN Non-Formulary Medication (Melatonin [Melatonin]) 1 tab PO BEDTIME [facility] Rosuvastatin Calcium (Rosuvastatin 10 Mg Tab) 20 mg PO DAILY [facility] Sertraline HCl (Sertraline 100 Mg Tab) 100 mg PO DAILY [facility] Sodium Chloride (Sodium Chloride 0.9% 10 Ml Syringe) 10 ml FLUSH ASDIRECTED PRN PRN Reason: Keep Vein Open Last Admin: 07/02/21 20:41 Dose: 10 ml Documented by: SERGIO Sodium Chloride (Sodium Chloride 0.9% 2.5 Ml Syringe) 2.5 ml FLUSH ASDIRECTED PRN PRN Reason: Keep Vein Open Last Admin: 07/02/21 20:41 Dose: 2.5 ml Documented by: SERGIO Assessment/Plan Comment:: 80 yo female admitted for dehydration and UTI. We will continue IV fluid resuscitation. We will treat UTI with Rocephin
[2021-07-03] MEDS ORDERED: cefTRIAXone 1 GM in Sodium Chloride 0.9% 50 ML IV SCH (01:00)
[2021-07-03] MEDS: Sodium Chloride 0.9% 1,000 ML IV SCH ×3 (01:34→19:42)
[2021-07-03 06:42] LABS: CARBON DIOXIDE,CO2 19.2 mmol/L (21.0-32.0); POTASSIUM,K 3.2 mmol/L (3.5-5.1)
[2021-07-03] MEDS: Ondansetron 4 MG/2 ML SDV IVPUSH PRN ×2 (08:26→17:37)
[2021-07-03] MEDS ORDERED: Non-Formulary Medication 1 Each (Rivaroxaban [Xarelto] 20 MG Tablet) PO SCH (09:00)
[2021-07-03] MEDS: Rosuvastatin 10 MG Tab PO SCH (11:23)
[2021-07-03] MEDS: Sertraline 100 MG Tab PO SCH (11:23)
[2021-07-03] MEDS ORDERED: Potassium Chloride 20 MEQ Tab.ER PO ONE (13:00)
[2021-07-03] MEDS: Apixaban 5 MG Tab PO SCH ×4 (13:17→20:40)
--- NOTE | 2021-07-03 14:27 | PCM.PN ---
- General Info Date of Service: 07/03/21 - Review of Systems Systems Review Comment:: feeling better, no new complaints, apatite poor - Patient Data Vitals - Most Recent: Last Vital Signs Temp 36.5 C 07/03/21 12:00 Pulse 73 07/03/21 12:00 Resp 16 07/03/21 12:00 BP 95/46 L 07/03/21 12:00 Pulse Ox 97 07/03/21 12:00 Weight - Most Recent: 44.815 kg I&O - Last 24 Hours: Intake & Output 07/02/21 07/03/21 07/03/21 22:59 06:59 14:59 Output Total 400 Balance -400 Lab Results Last 24 Hours: Laboratory Results - last 24 hr 07/02/21 07/02/21 07/02/21 Range/Units 19:15 19:15 19:15 WBC 10.56 (4.0-11.0) K/uL RBC 3.37 L (4.30-5.90) M/uL Hgb 10.5 L (12.0-16.0) g/dL Hct 30.2 L (36.0-46.0) % MCV 89.6 (80.0-98.0) fL MCH 31.2 (27.0-32.0) pg MCHC 34.8 (31.0-37.0) g/dL RDW Std Deviation 48.3 (28.0-62.0) fl RDW Coeff of Sofia 15 (11.0-15.0) % Plt Count 177 (150-400) K/uL MPV 10.40 (7.40-12.00) fL Neut % (Auto) 79.6 (48.0-80.0) % Lymph % (Auto) 14.8 L (16.0-40.0) % [place] % (Auto) 4.8 (0.0-15.0) % Eos % (Auto) 0.6 (0.0-7.0) % Baso % (Auto) 0.2 (0.0-1.5) % Neut # (Auto) 8.4 H (1.4-5.7) K/uL Lymph # (Auto) 1.6 (0.6-2.4) K/uL [place] # (Auto) 0.5 (0.0-0.8) K/uL Eos # (Auto) 0.1 (0.0-0.7) K/uL Baso # (Auto) 0.0 (0.0-0.1) K/uL Nucleated RBC % 0.0 /100WBC Nucleated RBCs # 0 K/uL Sodium 131 L (136-145) mmol/L Potassium 4.4 (3.5-5.1) mmol/L Chloride 99 (98-107) mmol/L Carbon Dioxide 14.7 L (21.0-32.0) mmol/L BUN 74 H (7.0-18.0) mg/dL Creatinine 2.2 H (0.6-1.0) mg/dL Est Cr Clr Drug Dosing 13.21 mL/min Estimated GFR (MDRD) 21.4 ml/min Glucose 135 H (74-106) mg/dL Lactic Acid 1.8 (0.4-2.0) mmol/L Calcium 9.0 (8.5-10.1) mg/dL Magnesium 2.6 H (1.8-2.4) mg/dL Total Bilirubin 0.2 (0.2-1.0) mg/dL AST 27 (15-37) IU/L ALT 30 (14-63) IU/L Alkaline Phosphatase 96 (46-116) U/L Total Protein 7.0 (6.4-8.2) g/dL Albumin 3.4 (3.4-5.0) g/dL Globulin 3.6 (2.6-4.0) g/dL Albumin/Globulin Ratio 0.9 (0.9-1.6) Lipase 753 H (73-393) U/L Urine Color Urine Appearance Urine pH (5.0-8.0) Ur Specific [place] (1.001-1.035) Urine Protein (NEGATIVE) mg/dL Urine Glucose (UA) (NEGATIVE) mg/dL Urine Ketones (NEGATIVE) mg/dL Urine Occult Blood (NEGATIVE) Urine Nitrite (NEGATIVE) Urine Bilirubin (NEGATIVE) Urine Urobilinogen (<2.0) EU/dL Ur Leukocyte Esterase (NEGATIVE) U Hyaline Cast (Auto) (0-2/LPF) Urine RBC (0-2/HPF) Urine WBC (0-5/HPF) Ur Epithelial Cells (NONE-FEW) Urine Bacteria (NEGATIVE) SARS-CoV-2 RNA (BEAU) (NEGATIVE) 07/02/21 07/02/21 07/03/21 Range/Units 20:19 23:48 05:48 WBC 7.75 (4.0-11.0) K/uL RBC 2.71 L (4.30-5.90) M/uL Hgb 8.4 L (12.0-16.0) g/dL Hct 24.6 L (36.0-46.0) % MCV 90.8 (80.0-98.0) fL MCH 31.0 (27.0-32.0) pg MCHC 34.1 (31.0-37.0) g/dL RDW Std Deviation 49.4 (28.0-62.0) fl RDW Coeff of Sofia 15 (11.0-15.0) % Plt Count 125 L (150-400) K/uL MPV 10.10 (7.40-12.00) fL Neut % (Auto) 69.6 (48.0-80.0) % Lymph % (Auto) 23.4 (16.0-40.0) % [place] % (Auto) 5.4 (0.0-15.0) % Eos % (Auto) 1.3 (0.0-7.0) % Baso % (Auto) 0.3 (0.0-1.5) % Neut # (Auto) 5.4 (1.4-5.7) K/uL Lymph # (Auto) 1.8 (0.6-2.4) K/uL [place] # (Auto) 0.4 (0.0-0.8) K/uL Eos # (Auto) 0.1 (0.0-0.7) K/uL Baso # (Auto) 0.0 (0.0-0.1) K/uL Nucleated RBC % 0.0 /100WBC Nucleated RBCs # 0 K/uL Sodium (136-145) mmol/L Potassium (3.5-5.1) mmol/L Chloride (98-107) mmol/L Carbon Dioxide (21.0-32.0) mmol/L BUN (7.0-18.0) mg/dL Creatinine (0.6-1.0) mg/dL Est Cr Clr Drug Dosing mL/min Estimated GFR (MDRD) ml/min Glucose (74-106) mg/dL Lactic Acid (0.4-2.0) mmol/L Calcium (8.5-10.1) mg/dL Magnesium (1.8-2.4) mg/dL Total Bilirubin (0.2-1.0) mg/dL AST (15-37) IU/L ALT (14-63) IU/L Alkaline Phosphatase (46-116) U/L Total Protein (6.4-8.2) g/dL Albumin (3.4-5.0) g/dL Globulin (2.6-4.0) g/dL Albumin/Globulin Ratio (0.9-1.6) Lipase (73-393) U/L Urine Color YELLOW Urine Appearance SLT CLOUDY Urine pH 6.0 (5.0-8.0) Ur Specific [place] 1.020 (1.001-1.035) Urine Protein TRACE H (NEGATIVE) mg/dL Urine Glucose (UA) NEGATIVE (NEGATIVE) mg/dL Urine Ketones NEGATIVE (NEGATIVE) mg/dL Urine Occult Blood TRACE-INTACT H (NEGATIVE) Urine Nitrite NEGATIVE (NEGATIVE) Urine Bilirubin NEGATIVE (NEGATIVE) Urine Urobilinogen 0.2 (<2.0) EU/dL Ur Leukocyte Esterase MODERATE H (NEGATIVE) U Hyaline Cast (Auto) 0-2 (0-2/LPF) Urine RBC 1-3 (0-2/HPF) Urine WBC 20-30 (0-5/HPF) Ur Epithelial Cells OCCASIONAL (NONE-FEW) Urine Bacteria FEW (NEGATIVE) SARS-CoV-2 RNA (BEAU) NEGATIVE (NEGATIVE) 07/03/21 Range/Units 05:48 WBC (4.0-11.0) K/uL RBC (4.30-5.90) M/uL Hgb (12.0-16.0) g/dL Hct (36.0-46.0) % MCV (80.0-98.0) fL MCH (27.0-32.0) pg MCHC (31.0-37.0) g/dL RDW Std Deviation (28.0-62.0) fl RDW Coeff of Sofia (11.0-15.0) % Plt Count (150-400) K/uL MPV (7.40-12.00) fL Neut % (Auto) (48.0-80.0) % Lymph % (Auto) (16.0-40.0) % [place] % (Auto) (0.0-15.0) % Eos % (Auto) (0.0-7.0) % Baso % (Auto) (0.0-1.5) % Neut # (Auto) (1.4-5.7) K/uL Lymph # (Auto) (0.6-2.4) K/uL [place] # (Auto) (0.0-0.8) K/uL Eos # (Auto) (0.0-0.7) K/uL Baso # (Auto) (0.0-0.1) K/uL Nucleated RBC % /100WBC Nucleated RBCs # K/uL Sodium 135 L (136-145) mmol/L Potassium 3.2 L (3.5-5.1) mmol/L Chloride 105 (98-107) mmol/L Carbon Dioxide 19.2 L (21.0-32.0) mmol/L BUN 53 H (7.0-18.0) mg/dL Creatinine 1.5 H (0.6-1.0) mg/dL Est Cr Clr Drug Dosing 20.81 mL/min Estimated GFR (MDRD) 33.3 ml/min Glucose 93 (74-106) mg/dL Lactic Acid (0.4-2.0) mmol/L Calcium 7.1 L (8.5-10.1) mg/dL Magnesium (1.8-2.4) mg/dL Total Bilirubin 0.3 (0.2-1.0) mg/dL AST 22 (15-37) IU/L ALT 22 (14-63) IU/L Alkaline Phosphatase 65 (46-116) U/L Total Protein 5.3 L (6.4-8.2) g/dL Albumin 2.5 L (3.4-5.0) g/dL Globulin 2.8 (2.6-4.0) g/dL Albumin/Globulin Ratio 0.9 (0.9-1.6) Lipase (73-393) U/L Urine Color Urine Appearance Urine pH (5.0-8.0) Ur Specific [place] (1.001-1.035) Urine Protein (NEGATIVE) mg/dL Urine Glucose (UA) (NEGATIVE) mg/dL Urine Ketones (NEGATIVE) mg/dL Urine Occult Blood (NEGATIVE) Urine Nitrite (NEGATIVE) Urine Bilirubin (NEGATIVE) Urine Urobilinogen (<2.0) EU/dL Ur Leukocyte Esterase (NEGATIVE) U Hyaline Cast (Auto) (0-2/LPF) Urine RBC (0-2/HPF) Urine WBC (0-5/HPF) Ur Epithelial Cells (NONE-FEW) Urine Bacteria (NEGATIVE) SARS-CoV-2 RNA (BEAU) (NEGATIVE) Jonel Results Last 24 Hours: Microbiology 07/02/21 19:37 Anaerobic Blood Culture - Final Blood - Venous - Lab Draw Med Orders - Current: Current Medications Acetaminophen (Acetaminophen 325 Mg Tab) 650 mg PO Q4H PRN PRN Reason: Pain (Mild 1-3)/fever Apixaban (Apixaban 5 Mg Tab) 5 mg PO BID VIRGEN Dronabinol (Dronabinol 2.5 Mg Cap) 10 mg PO DAILY VIRGEN Lactated Ringer's (Ringers, Lactated) 1,000 mls @ 999 mls/hr IV .BOLUS [facility] Last Admin: 07/02/21 20:40 Dose: 999 mls/hr Documented by: Lactated Ringer's (Ringers, Lactated) 1,000 mls @ 999 mls/hr IV .BOLUS [facility] Last Admin: 07/02/21 22:36 Dose: 999 mls/hr Documented by: Sodium Chloride (Normal Saline) 1,000 mls @ 125 mls/hr IV ASDIRECTED [facility] Last Admin: 07/03/21 11:02 Dose: 125 mls/hr Documented by: Ceftriaxone Sodium/Dextrose (Rocephin In Dextrose,Iso-Osm 1 Gm/50 Ml) 50 mls @ 50 mls/hr IV Q24H [facility] Last Admin: 07/03/21 01:30 Dose: 50 mls/hr Documented by: Loperamide HCl (Loperamide 2 Mg Cap) 2 mg PO Q6H PRN PRN Reason: Diarrhea Melatonin (Melatonin 3 Mg Tab) 9 mg PO BEDTIME VIRGEN Mirtazapine (Mirtazapine 15 Mg Tab) 45 mg PO BEDTIME [facility] Ondansetron HCl (Ondansetron 4 Mg/2 Ml Sdv) 4 mg IVPUSH Q4H PRN PRN Reason: Nausea/Vomiting Last Admin: 07/03/21 08:26 Dose: 4 mg Documented by: Rosuvastatin Calcium (Rosuvastatin 10 Mg Tab) 20 mg PO DAILY [facility] Last Admin: 07/03/21 11:23 Dose: 20 mg Documented by: Sertraline HCl (Sertraline 100 Mg Tab) 100 mg PO DAILY [facility] Last Admin: 07/03/21 11:23 Dose: 100 mg Documented by: Sodium Chloride (Sodium Chloride 0.9% 10 Ml Syringe) 10 ml FLUSH ASDIRECTED PRN PRN Reason: Keep Vein Open Last Admin: 07/02/21 20:41 Dose: 10 ml Documented by: Sodium Chloride (Sodium Chloride 0.9% 2.5 Ml Syringe) 2.5 ml FLUSH ASDIRECTED PRN PRN Reason: Keep Vein Open Last Admin: 07/02/21 20:41 Dose: 2.5 ml Documented by: Discontinued Medications Sodium Chloride (Normal Saline) 1,000 mls @ 999 mls/hr IV .Bolus ONE Stop: 07/02/21 20:10 Last Admin: 07/02/21 19:30 Dose: 999 mls/hr Documented by: Ceftriaxone Sodium 1 gm/ (Sodium Chloride) 50 mls @ 100 mls/hr IV Q24H [facility] Last Admin: 07/03/21 08:09 Dose: Not Given Documented by: Ceftriaxone Sodium/Dextrose (Rocephin In Dextrose,Iso-Osm 1 Gm/50 Ml) Confirm Administered Dose 50 mls @ as directed .ROUTE .STK-MED ONE Stop: 07/03/21 01:10 Last Admin: 07/03/21 08:08 Dose: Not Given Documented by: Influenza Virus Vaccine (Pharmacy To Dose - Influenza Vaccine) 1 each IM ONETIME ONE Stop: 07/03/21 00:21 Influenza Virus Vaccine (Flu Vacc [id number](65yr Up)/Pf 240 Mcg/0.7 Ml Syringe) 240 mcg IM .ONCE ONE Stop: 07/03/21 10:01 Morphine Sulfate (Morphine 4 Mg/Ml Syringe) 2 mg IVPUSH ONETIME ONE Stop: 07/02/21 22:22 Last Admin: 07/02/21 22:43 Dose: Not Given Documented by: Ondansetron HCl (Ondansetron 4 Mg/2 Ml Sdv) 4 mg IVPUSH ONETIME ONE Stop: 07/02/21 19:44 Last Admin: 07/02/21 20:40 Dose: 4 mg Documented by: Potassium Chloride (Potassium Chloride 20 Meq Tab.Er) 20 meq PO ONETIME ONE Stop: 07/03/21 13:01 Last Admin: 07/03/21 13:17 Dose: 20 meq Documented by: - Exam General: Alert, Oriented Neck: Supple Lungs: Clear to Auscultation, Normal Respiratory Effort Cardiovascular: Regular Rate, Regular Rhythm GI/Abdominal Exam: Soft, Non-Tender, No Distention Extremities: Non-Tender, No Pedal Edema Skin: Warm, Dry, Intact Neurological: No New Focal Deficit - Patient Data Lab Results Last 24 hrs: Laboratory Results - last 24 hr 07/02/21 07/02/21 07/02/21 Range/Units 19:15 19:15 19:15 WBC 10.56 (4.0-11.0) K/uL RBC 3.37 L (4.30-5.90) M/uL Hgb 10.5 L (12.0-16.0) g/dL Hct 30.2 L (36.0-46.0) % MCV 89.6 (80.0-98.0) fL MCH 31.2 (27.0-32.0) pg MCHC 34.8 (31.0-37.0) g/dL RDW Std Deviation 48.3 (28.0-62.0) fl RDW Coeff of Sofia 15 (11.0-15.0) % Plt Count 177 (150-400) K/uL MPV 10.40 (7.40-12.00) fL Neut % (Auto) 79.6 (48.0-80.0) % Lymph % (Auto) 14.8 L (16.0-40.0) % [place] % (Auto) 4.8 (0.0-15.0) % Eos % (Auto) 0.6 (0.0-7.0) % Baso % (Auto) 0.2 (0.0-1.5) % Neut # (Auto) 8.4 H (1.4-5.7) K/uL Lymph # (Auto) 1.6 (0.6-2.4) K/uL [place] # (Auto) 0.5 (0.0-0.8) K/uL Eos # (Auto) 0.1 (0.0-0.7) K/uL Baso # (Auto) 0.0 (0.0-0.1) K/uL Nucleated RBC % 0.0 /100WBC Nucleated RBCs # 0 K/uL Sodium 131 L (136-145) mmol/L Potassium 4.4 (3.5-5.1) mmol/L Chloride 99 (98-107) mmol/L Carbon Dioxide 14.7 L (21.0-32.0) mmol/L BUN 74 H (7.0-18.0) mg/dL Creatinine 2.2 H (0.6-1.0) mg/dL Est Cr Clr Drug Dosing 13.21 mL/min Estimated GFR (MDRD) 21.4 ml/min Glucose 135 H (74-106) mg/dL Lactic Acid 1.8 (0.4-2.0) mmol/L Calcium 9.0 (8.5-10.1) mg/dL Magnesium 2.6 H (1.8-2.4) mg/dL Total Bilirubin 0.2 (0.2-1.0) mg/dL AST 27 (15-37) IU/L ALT 30 (14-63) IU/L Alkaline Phosphatase 96 (46-116) U/L Total Protein 7.0 (6.4-8.2) g/dL Albumin 3.4 (3.4-5.0) g/dL Globulin 3.6 (2.6-4.0) g/dL Albumin/Globulin Ratio 0.9 (0.9-1.6) Lipase 753 H (73-393) U/L Urine Color Urine Appearance Urine pH (5.0-8.0) Ur Specific [place] (1.001-1.035) Urine Protein (NEGATIVE) mg/dL Urine Glucose (UA) (NEGATIVE) mg/dL Urine Ketones (NEGATIVE) mg/dL Urine Occult Blood (NEGATIVE) Urine Nitrite (NEGATIVE) Urine Bilirubin (NEGATIVE) Urine Urobilinogen (<2.0) EU/dL Ur Leukocyte Esterase (NEGATIVE) U Hyaline Cast (Auto) (0-2/LPF) Urine RBC (0-2/HPF) Urine WBC (0-5/HPF) Ur Epithelial Cells (NONE-FEW) Urine Bacteria (NEGATIVE) SARS-CoV-2 RNA (BEAU) (NEGATIVE) 07/02/21 07/02/2121 Range/Units 20:19 23:48 05:48 WBC 7.75 (4.0-11.0) K/uL RBC 2.71 L (4.30-5.90) M/uL Hgb 8.4 L (12.0-16.0) g/dL Hct 24.6 L (36.0-46.0) % MCV 90.8 (80.0-98.0) fL MCH 31.0 (27.0-32.0) pg MCHC 34.1 (31.0-37.0) g/dL RDW Std Deviation 49.4 (28.0-62.0) fl RDW Coeff of Sofia 15 (11.0-15.0) % Plt Count 125 L (150-400) K/uL MPV 10.10 (7.40-12.00) fL Neut % (Auto) 69.6 (48.0-80.0) % Lymph % (Auto) 23.4 (16.0-40.0) % [place] % (Auto) 5.4 (0.0-15.0) % Eos % (Auto) 1.3 (0.0-7.0) % Baso % (Auto) 0.3 (0.0-1.5) % Neut # (Auto) 5.4 (1.4-5.7) K/uL Lymph # (Auto) 1.8 (0.6-2.4) K/uL [place] # (Auto) 0.4 (0.0-0.8) K/uL Eos # (Auto) 0.1 (0.0-0.7) K/uL Baso # (Auto) 0.0 (0.0-0.1) K/uL Nucleated RBC % 0.0 /100WBC Nucleated RBCs # 0 K/uL Sodium (136-145) mmol/L Potassium (3.5-5.1) mmol/L Chloride (98-107) mmol/L Carbon Dioxide (21.0-32.0) mmol/L BUN (7.0-18.0) mg/dL Creatinine (0.6-1.0) mg/dL Est Cr Clr Drug Dosing mL/min Estimated GFR (MDRD) ml/min Glucose (74-106) mg/dL Lactic Acid (0.4-2.0) mmol/L Calcium (8.5-10.1) mg/dL Magnesium (1.8-2.4) mg/dL Total Bilirubin (0.2-1.0) mg/dL AST (15-37) IU/L ALT (14-63) IU/L Alkaline Phosphatase (46-116) U/L Total Protein (6.4-8.2) g/dL Albumin (3.4-5.0) g/dL Globulin (2.6-4.0) g/dL Albumin/Globulin Ratio (0.9-1.6) Lipase (73-393) U/L Urine Color YELLOW Urine Appearance SLT CLOUDY Urine pH 6.0 (5.0-8.0) Ur Specific [place] 1.020 (1.001-1.035) Urine Protein TRACE H (NEGATIVE) mg/dL Urine Glucose (UA) NEGATIVE (NEGATIVE) mg/dL Urine Ketones NEGATIVE (NEGATIVE) mg/dL Urine Occult Blood TRACE-INTACT H (NEGATIVE) Urine Nitrite NEGATIVE (NEGATIVE) Urine Bilirubin NEGATIVE (NEGATIVE) Urine Urobilinogen 0.2 (<2.0) EU/dL Ur Leukocyte Esterase MODERATE H (NEGATIVE) U Hyaline Cast (Auto) 0-2 (0-2/LPF) Urine RBC 1-3 (0-2/HPF) Urine WBC 20-30 (0-5/HPF) Ur Epithelial Cells OCCASIONAL (NONE-FEW) Urine Bacteria FEW (NEGATIVE) SARS-CoV-2 RNA (BEAU) NEGATIVE (NEGATIVE) 07/03/21 Range/Units 05:48 WBC (4.0-11.0) K/uL RBC (4.30-5.90) M/uL Hgb (12.0-16.0) g/dL Hct (36.0-46.0) % MCV (80.0-98.0) fL MCH (27.0-32.0) pg MCHC (31.0-37.0) g/dL RDW Std Deviation (28.0-62.0) fl RDW Coeff of Sofia (11.0-15.0) % Plt Count (150-400) K/uL MPV (7.40-12.00) fL Neut % (Auto) (48.0-80.0) % Lymph % (Auto) (16.0-40.0) % [place] % (Auto) (0.0-15.0) % Eos % (Auto) (0.0-7.0) % Baso % (Auto) (0.0-1.5) % Neut # (Auto) (1.4-5.7) K/uL Lymph # (Auto) (0.6-2.4) K/uL [place] # (Auto) (0.0-0.8) K/uL Eos # (Auto) (0.0-0.7) K/uL Baso # (Auto) (0.0-0.1) K/uL Nucleated RBC % /100WBC Nucleated RBCs # K/uL Sodium 135 L (136-145) mmol/L Potassium 3.2 L (3.5-5.1) mmol/L Chloride 105 (98-107) mmol/L Carbon Dioxide 19.2 L (21.0-32.0) mmol/L BUN 53 H (7.0-18.0) mg/dL Creatinine 1.5 H (0.6-1.0) mg/dL Est Cr Clr Drug Dosing 20.81 mL/min Estimated GFR (MDRD) 33.3 ml/min Glucose 93 (74-106) mg/dL Lactic Acid (0.4-2.0) mmol/L Calcium 7.1 L (8.5-10.1) mg/dL Magnesium (1.8-2.4) mg/dL Total Bilirubin 0.3 (0.2-1.0) mg/dL AST 22 (15-37) IU/L ALT 22 (14-63) IU/L Alkaline Phosphatase 65 (46-116) U/L Total Protein 5.3 L (6.4-8.2) g/dL Albumin 2.5 L (3.4-5.0) g/dL Globulin 2.8 (2.6-4.0) g/dL Albumin/Globulin Ratio 0.9 (0.9-1.6) Lipase (73-393) U/L Urine Color Urine Appearance Urine pH (5.0-8.0) Ur Specific [place] (1.001-1.035) Urine Protein (NEGATIVE) mg/dL Urine Glucose (UA) (NEGATIVE) mg/dL Urine Ketones (NEGATIVE) mg/dL Urine Occult Blood (NEGATIVE) Urine Nitrite (NEGATIVE) Urine Bilirubin (NEGATIVE) Urine Urobilinogen (<2.0) EU/dL Ur Leukocyte Esterase (NEGATIVE) U Hyaline Cast (Auto) (0-2/LPF) Urine RBC (0-2/HPF) Urine WBC (0-5/HPF) Ur Epithelial Cells (NONE-FEW) Urine Bacteria (NEGATIVE) SARS-CoV-2 RNA (BEAU) (NEGATIVE) Result Diagrams: 07/03/21 05:48 07/03/21 05:48 Jonel Results Last 24 hrs: Microbiology 07/02/21 19:37 Anaerobic Blood Culture - Final Blood - Venous - Lab Draw Sepsis Event Note - Evaluation Sepsis Screening Result: No Definite Risk - Focused Exam Vital Signs: Vital Signs Temp Pulse Resp BP Pulse Ox 07/03/21 12:00 36.5 C 73 16 95/46 L 97 07/03/21 08:00 37.0 C 75 16 105/43 L 96 07/03/21 04:35 36.8 C 67 18 88/44 L 96 - Problem List & Annotations (1) UTI (urinary tract infection) SNOMED Code(s): 91571252 Code(s): N39.0 - URINARY TRACT INFECTION, SITE NOT SPECIFIED Status: Acute Current Visit: Yes (2) Dehydration SNOMED Code(s): 28858685 Code(s): E86.0 - DEHYDRATION Status: Acute Current Visit: Yes (3) Short gut syndrome SNOMED Code(s): 03582940 Code(s): K91.2 - POSTSURGICAL MALABSORPTION, NOT ELSEWHERE CLASSIFIED Status: Acute Current Visit: Yes - Problem List Review Problem List Initiated/Reviewed/Updated: Yes - My Orders Last 24 Hours: My Active Orders 07/03/21 00:22 Vaccine to be Administered/Admin Charge [RC] ASDIRECTED 07/03/21 00:40 Loperamide [Imodium] 2 mg PO Q6H PRN 07/03/21 00:41 Patient Status [ADT] Routine Oxygen Therapy [RC] PRN Up ad Gloria [RC] ASDIRECTED VTE/DVT Education [RC] PER UNIT ROUTINE Vital Signs [RC] Q4H PT Evaluation and Treatment [CONS] Routine Acetaminophen [TylenoL] 650 mg PO Q4H PRN Resuscitation Status Routine 07/03/21 00:42 Antiembolic Devices [RC] PER UNIT ROUTINE Intake and Output [RC] QSHIFT Sequential Compression Device [OM.PC] Per Unit Routine 07/03/21 00:45 Sodium Chloride 0.9% [Normal Saline] 1,000 ml IV ASDIRECTED 07/03/21 00:47 CULTURE URINE [MREF] Routine 07/03/21 02:00 cefTRIAXone [Rocephin in Dextrose,Iso-Osm 1 GM/50 ML] 50 ml IV Q24H 07/03/21 03:23 Telemetry Monitoring [Cardiac Monitoring] [RC] Q8HR 07/03/21 Breakfast Regular Diet [DIET] 07/03/21 09:00 Rosuvastatin [Crestor] 20 mg PO DAILY Sertraline [Zoloft] 100 mg PO DAILY 07/03/21 12:00 Apixaban [Eliquis] 5 mg PO BID 07/03/21 14:00 dronabinoL [Marinol] 10 mg PO DAILY 07/03/21 14:23 Bladder Scan [RC] Q6H 07/03/21 21:00 Melatonin 9 mg PO BEDTIME Mirtazapine [Remeron] 45 mg PO BEDTIME 07/04/21 05:11 CBC WITH AUTO DIFF [HEME] AM COMPREHENSIVE METABOLIC PN,CMP [CHEM] AM MAGNESIUM [CHEM] AM PHOSPHORUS [CHEM] AM - Plan Plan:: 80 yo female admitted for dehydration and UTI. Will continue Rocephin. Changed Xarelto to Eliquis due to elevated creatinne. Continue physical therapy.
[2021-07-03] MEDS ORDERED: Fluconazole 150 MG Tab PO ONE (15:15)
[2021-07-03] MEDS: Dronabinol 2.5 MG Cap PO SCH (19:02)
[2021-07-03] MEDS: Melatonin 3 MG Tab PO SCH (20:28)
[2021-07-03] MEDS: Mirtazapine 15 MG Tab PO SCH (20:28)
[2021-07-03] MEDS: Acetaminophen 325 MG Tab PO PRN (23:57)
[2021-07-04] MEDS: Sodium Chloride 0.9% 1,000 ML IV SCH ×2 (02:56→12:18)
[2021-07-04 07:54] LABS: CARBON DIOXIDE,CO2 14.6 mmol/L (21.0-32.0); POTASSIUM,K 3.3 mmol/L (3.5-5.1)
[2021-07-04] MEDS ORDERED: Potassium Chloride 20 MEQ Tab.ER PO ONE (08:45)
[2021-07-04] MEDS ORDERED: Levothyroxine 75 MCG Tab PO SCH (09:00)
[2021-07-04] MEDS: Dronabinol 2.5 MG Cap PO SCH ×2 (09:43→11:24)
[2021-07-04] MEDS: Rosuvastatin 10 MG Tab PO SCH (09:44)
[2021-07-04] MEDS: Apixaban 5 MG Tab PO SCH ×2 (09:44→20:35)
[2021-07-04] MEDS: Sertraline 100 MG Tab PO SCH (09:44)
[2021-07-04] MEDS ORDERED: DRONABINOL 10 MG PO SCH (10:30)
--- NOTE | 2021-07-04 10:47 | PCM.PN ---
- General Info Date of Service: 07/04/21 Subjective Update: Patient states no concerns overnight. Patient did have a urinary episode this morning, urinary output noted to be 500 mL. Patient denies abdominal pain, suprapubic pain, chest pain, shortness of breath. Patient is tolerating oral diet. - Review of Systems General: Denies: Fever, Chills Pulmonary: Denies: Shortness of Breath, Cough Cardiovascular: Denies: Chest Pain, Edema Gastrointestinal: Denies: Abdominal Pain, Diarrhea, Nausea, Vomiting Musculoskeletal: Reports: Other (Bruising noted on left side of face forehead. Patient states musculoskeletal pain of left side of shoulder, left arm left side of chest.) Neurological: Denies: Confusion, Dizziness Psychiatric: Denies: Confusion - Patient Data Vitals - Most Recent: Last Vital Signs Temp 98.7 F 07/04/21 04:00 Pulse 68 07/04/21 04:00 Resp 16 07/04/21 04:00 BP 90/56 L 07/04/21 04:00 Pulse Ox 96 07/04/21 04:00 Orthostatic Blood Pressure [ 72/40 Standing] Orthostatic Blood Pressure [ 87/41 Sitting] Orthostatic Blood Pressure [ 82/49 Supine] Weight - Most Recent: 98 lb 12.8 oz I&O - Last 24 Hours: Intake & Output 07/03/21 07/04/21 07/04/21 22:59 06:59 14:59 Intake Total 280 Output Total 450 Balance -170 Lab Results Last 24 Hours: Laboratory Results - last 24 hr 07/04/21 07/04/21 07/04/21 Range/Units 06:10 06:10 06:10 WBC 8.00 (4.0-11.0) K/uL RBC 2.52 L (4.30-5.90) M/uL Hgb 7.7 L (12.0-16.0) g/dL Hct 23.4 L (36.0-46.0) % MCV 92.9 (80.0-98.0) fL MCH 30.6 (27.0-32.0) pg MCHC 32.9 (31.0-37.0) g/dL RDW Std Deviation 51.6 (28.0-62.0) fl RDW Coeff of Sofia 15 (11.0-15.0) % Plt Count 113 L (150-400) K/uL MPV 9.90 (7.40-12.00) fL Neut % (Auto) 71.8 (48.0-80.0) % Lymph % (Auto) 20.4 (16.0-40.0) % [place] % (Auto) 5.3 (0.0-15.0) % Eos % (Auto) 2.1 (0.0-7.0) % Baso % (Auto) 0.4 (0.0-1.5) % Neut # (Auto) 5.8 H (1.4-5.7) K/uL Lymph # (Auto) 1.6 (0.6-2.4) K/uL [place] # (Auto) 0.4 (0.0-0.8) K/uL Eos # (Auto) 0.2 (0.0-0.7) K/uL Baso # (Auto) 0.0 (0.0-0.1) K/uL Nucleated RBC % 0.0 /100WBC Nucleated RBCs # 0 K/uL Sodium 140 (136-145) mmol/L Potassium 3.3 L (3.5-5.1) mmol/L Chloride 111 H (98-107) mmol/L Carbon Dioxide 14.6 L (21.0-32.0) mmol/L BUN 34 H (7.0-18.0) mg/dL Creatinine 1.2 H (0.6-1.0) mg/dL Est Cr Clr Drug Dosing 26.01 mL/min Estimated GFR (MDRD) 43.1 ml/min Glucose 89 (74-106) mg/dL Calcium 7.0 L (8.5-10.1) mg/dL Phosphorus 2.8 (2.6-4.7) mg/dL Magnesium 1.9 (1.8-2.4) mg/dL Total Bilirubin 0.2 (0.2-1.0) mg/dL AST 43 H (15-37) IU/L ALT 48 (14-63) IU/L Alkaline Phosphatase 65 (46-116) U/L Total Protein 4.7 L (6.4-8.2) g/dL Albumin 2.3 L (3.4-5.0) g/dL Globulin 2.4 L (2.6-4.0) g/dL Albumin/Globulin Ratio 1.0 (0.9-1.6) Free T4 0.51 L (0.76-1.46) ng/dL TSH, Ultra Sensitive 17.06 H (0.36-3.74) uIU/mL Jonel Results Last 24 Hours: Microbiology 07/02/21 19:37 Aerobic Blood Culture - Preliminary Blood - Venous - Lab Draw NO GROWTH AFTER 1 DAY Anaerobic Blood Culture - Final 07/02/21 19:15 Aerobic Blood Culture - Preliminary Blood - Venous NO GROWTH AFTER 1 DAY Anaerobic Blood Culture - Preliminary NO GROWTH AFTER 1 DAY Med Orders - Current: Current Medications Acetaminophen (Acetaminophen 325 Mg Tab) 650 mg PO Q4H PRN PRN Reason: Pain (Mild 1-3)/fever Last Admin: 07/03/21 23:57 Dose: 650 mg Documented by: Apixaban (Apixaban 5 Mg Tab) 5 mg PO BID VIRGEN Last Admin: 07/04/21 09:44 Dose: 5 mg Documented by: Lactated Ringer's (Ringers, Lactated) 1,000 mls @ 999 mls/hr IV .BOLUS VIRGEN Last Admin: 07/02/21 20:40 Dose: 999 mls/hr Documented by: Lactated Ringer's (Ringers, Lactated) 1,000 mls @ 999 mls/hr IV .BOLUS VIRGEN Last Admin: 07/02/21 22:36 Dose: 999 mls/hr Documented by: Sodium Chloride (Normal Saline) 1,000 mls @ 125 mls/hr IV ASDIRECTED VIRGEN Last Admin: 07/04/21 02:56 Dose: 125 mls/hr Documented by: Ceftriaxone Sodium/Dextrose (Rocephin In Dextrose,Iso-Osm 1 Gm/50 Ml) 50 mls @ 50 mls/hr IV Q24H VIRGEN Last Admin: 07/04/21 02:53 Dose: 50 mls/hr Documented by: Levothyroxine Sodium (Levothyroxine 75 Mcg Tab) 75 mcg PO Q24H VIRGEN Loperamide HCl (Loperamide 2 Mg Cap) 2 mg PO Q6H PRN PRN Reason: Diarrhea Melatonin (Melatonin 3 Mg Tab) 9 mg PO BEDTIME VIRGEN Last Admin: 07/03/21 20:28 Dose: 9 mg Documented by: Mirtazapine (Mirtazapine 15 Mg Tab) 45 mg PO BEDTIME VIRGEN Last Admin: 07/03/21 20:28 Dose: 45 mg Documented by: Ondansetron HCl (Ondansetron 4 Mg/2 Ml Sdv) 4 mg IVPUSH Q4H PRN PRN Reason: Nausea/Vomiting Last Admin: 07/03/21 17:37 Dose: 4 mg Documented by: Dronabinol 10 Mg Cap 1 each PO DAILY [facility] Rosuvastatin Calcium (Rosuvastatin 10 Mg Tab) 20 mg PO DAILY [facility] Last Admin: 07/04/21 09:44 Dose: 20 mg Documented by: Sertraline HCl (Sertraline 100 Mg Tab) 100 mg PO DAILY [facility] Last Admin: 07/04/21 09:44 Dose: 100 mg Documented by: Sodium Chloride (Sodium Chloride 0.9% 10 Ml Syringe) 10 ml FLUSH ASDIRECTED PRN PRN Reason: Keep Vein Open Last Admin: 07/02/21 20:41 Dose: 10 ml Documented by: Sodium Chloride (Sodium Chloride 0.9% 2.5 Ml Syringe) 2.5 ml FLUSH ASDIRECTED PRN PRN Reason: Keep Vein Open Last Admin: 07/02/21 20:41 Dose: 2.5 ml Documented by: Discontinued Medications Dronabinol (Dronabinol 2.5 Mg Cap) 10 mg PO DAILY [facility] Last Admin: 07/04/21 09:43 Dose: 10 mg Documented by: Fluconazole (Fluconazole 150 Mg Tab) 150 mg PO ONETIME ONE Stop: 07/03/21 15:16 Last Admin: 07/03/21 15:54 Dose: 150 mg Documented by: Sodium Chloride (Normal Saline) 1,000 mls @ 999 mls/hr IV .Bolus ONE Stop: 07/02/21 20:10 Last Admin: 07/02/21 19:30 Dose: 999 mls/hr Documented by: Ceftriaxone Sodium 1 gm/ (Sodium Chloride) 50 mls @ 100 mls/hr IV Q24H [facility] Last Admin: 07/03/21 08:09 Dose: Not Given Documented by: Ceftriaxone Sodium/Dextrose (Rocephin In Dextrose,Iso-Osm 1 Gm/50 Ml) Confirm Administered Dose 50 mls @ as directed .ROUTE .STK-MED ONE Stop: 07/03/21 01:10 Last Admin: 07/03/21 08:08 Dose: Not Given Documented by: Influenza Virus Vaccine (Pharmacy To Dose - Influenza Vaccine) 1 each IM ONETIME ONE Stop: 07/03/21 00:21 Influenza Virus Vaccine (Flu Vacc [id number](65yr Up)/Pf 240 Mcg/0.7 Ml Syringe) 240 mcg IM .ONCE ONE Stop: 07/03/21 10:01 Levothyroxine Sodium (Levothyroxine 75 Mcg Tab) 75 mcg PO DAILY VIRGEN Morphine Sulfate (Morphine 4 Mg/Ml Syringe) 2 mg IVPUSH ONETIME ONE Stop: 07/02/21 22:22 Last Admin: 07/02/21 22:43 Dose: Not Given Documented by: Ondansetron HCl (Ondansetron 4 Mg/2 Ml Sdv) 4 mg IVPUSH ONETIME ONE Stop: 07/02/21 19:44 Last Admin: 07/02/21 20:40 Dose: 4 mg Documented by: Potassium Chloride (Potassium Chloride 20 Meq Tab.Er) 20 meq PO ONETIME ONE Stop: 07/03/21 13:01 Last Admin: 07/03/21 13:17 Dose: 20 meq Documented by: Potassium Chloride (Potassium Chloride 20 Meq Tab.Er) 40 meq PO ONETIME ONE Stop: 07/04/21 08:46 Last Admin: 07/04/21 09:44 Dose: 40 meq Documented by: - Exam General: Alert, Oriented Lungs: Clear to Auscultation, Normal Respiratory Effort Cardiovascular: Regular Rate, Regular Rhythm GI/Abdominal Exam: Soft, Non-Tender, No Distention Extremities: No Pedal Edema Psy/Mental Status: Alert - Patient Data Lab Results Last 24 hrs: Laboratory Results - last 24 hr 07/04/21 07/04/21 07/04/21 Range/Units 06:10 06:10 06:10 WBC 8.00 (4.0-11.0) K/uL RBC 2.52 L (4.30-5.90) M/uL Hgb 7.7 L (12.0-16.0) g/dL Hct 23.4 L (36.0-46.0) % MCV 92.9 (80.0-98.0) fL MCH 30.6 (27.0-32.0) pg MCHC 32.9 (31.0-37.0) g/dL RDW Std Deviation 51.6 (28.0-62.0) fl RDW Coeff of Sofia 15 (11.0-15.0) % Plt Count 113 L (150-400) K/uL MPV 9.90 (7.40-12.00) fL Neut % (Auto) 71.8 (48.0-80.0) % Lymph % (Auto) 20.4 (16.0-40.0) % [place] % (Auto) 5.3 (0.0-15.0) % Eos % (Auto) 2.1 (0.0-7.0) % Baso % (Auto) 0.4 (0.0-1.5) % Neut # (Auto) 5.8 H (1.4-5.7) K/uL Lymph # (Auto) 1.6 (0.6-2.4) K/uL [place] # (Auto) 0.4 (0.0-0.8) K/uL Eos # (Auto) 0.2 (0.0-0.7) K/uL Baso # (Auto) 0.0 (0.0-0.1) K/uL Nucleated RBC % 0.0 /100WBC Nucleated RBCs # 0 K/uL Sodium 140 (136-145) mmol/L Potassium 3.3 L (3.5-5.1) mmol/L Chloride 111 H (98-107) mmol/L Carbon Dioxide 14.6 L (21.0-32.0) mmol/L BUN 34 H (7.0-18.0) mg/dL Creatinine 1.2 H (0.6-1.0) mg/dL Est Cr Clr Drug Dosing 26.01 mL/min Estimated GFR (MDRD) 43.1 ml/min Glucose 89 (74-106) mg/dL Calcium 7.0 L (8.5-10.1) mg/dL Phosphorus 2.8 (2.6-4.7) mg/dL Magnesium 1.9 (1.8-2.4) mg/dL Total Bilirubin 0.2 (0.2-1.0) mg/dL AST 43 H (15-37) IU/L ALT 48 (14-63) IU/L Alkaline Phosphatase 65 (46-116) U/L Total Protein 4.7 L (6.4-8.2) g/dL Albumin 2.3 L (3.4-5.0) g/dL Globulin 2.4 L (2.6-4.0) g/dL Albumin/Globulin Ratio 1.0 (0.9-1.6) Free T4 0.51 L (0.76-1.46) ng/dL TSH, Ultra Sensitive 17.06 H (0.36-3.74) uIU/mL Result Diagrams: 07/04/21 06:10 07/04/21 06:10 Jonel Results Last 24 hrs: Microbiology 07/02/21 19:37 Aerobic Blood Culture - Preliminary Blood - Venous - Lab Draw NO GROWTH AFTER 1 DAY Anaerobic Blood Culture - Final 07/02/21 19:15 Aerobic Blood Culture - Preliminary Blood - Venous NO GROWTH AFTER 1 DAY Anaerobic Blood Culture - Preliminary NO GROWTH AFTER 1 DAY Sepsis Event Note - Evaluation Sepsis Screening Result: No Definite Risk - Focused Exam Vital Signs: Vital Signs Temp Pulse Resp BP Pulse Ox Pulse Ox 07/04/21 04:00 98.7 F 68 16 90/56 L 96 07/04/21 00:41 94 L 07/04/21 00:00 98.1 F 72 18 92/50 L 95 - Problem List & Annotations (1) Dehydration SNOMED Code(s): 61935640 Code(s): E86.0 - DEHYDRATION Status: Acute Current Visit: Yes (2) Hypotension SNOMED Code(s): 33616658 Code(s): I95.9 - HYPOTENSION, UNSPECIFIED Status: Acute Current Visit: Yes (3) Short gut syndrome SNOMED Code(s): 27478424 Code(s): K91.2 - POSTSURGICAL MALABSORPTION, NOT ELSEWHERE CLASSIFIED Status: Acute Current Visit: Yes (4) UTI (urinary tract infection) SNOMED Code(s): 20343768 Code(s): N39.0 - URINARY TRACT INFECTION, SITE NOT SPECIFIED Status: Acute Current Visit: Yes - Problem List Review Problem List Initiated/Reviewed/Updated: Yes - My Orders Last 24 Hours: My Active Orders 07/03/21 18:24 Urinary Catheter Assessment [RC] ASDIRECTED 07/04/21 10:29 FERRITIN [CHEM] Routine FOLIC ACID [CHEM] Routine IRON/TIBC [CHEM] Routine TRANSFERRIN [CHEM] Routine VITAMIN B12 [CHEM] Routine VITAMIN D,25-HYDROXY [CHEM] Routine 07/04/21 10:30 Levothyroxine 75 mcg PO Q24H 07/04/21 10:32 OCCULT BLOOD DIAGNOSTIC [OP] Routine 07/04/21 10:35 Consult to Physician [CONS] Routine 07/04/21 10:37 Notify Provider Consults [RC] ASDIRECTED - Plan Plan:: Patient hemoglobin today 7.7. May be due to IV fluid dilution and/or poor oral intake. Albumin noted to be 2.3. Will encourage oral intake, iron studies ordered to include ferritin, transferrin, Iron/TIBC, folic acid, vitamin B12. Stool occult blood lab ordered. HypothyroidismTSH 17.06, T4 0.51. Levothyroxine 75 mcg daily. Dehydrationcontinue normal saline 125 mL an hour UTIRocephin 1 g every 24 hours History of DVTsEliquis 5 mg twice daily, patient currently on Xarelto switched to Eliquis due to increased creatinine. Continue physical therapy Patient continues to have hypertension, may require initiating midodrine. Will reassess Consult placed to Dr. Stewart, [employer] for replacement of pessary. (Patient's daughter states that patient was having episodes of vaginal discharge.)
[2021-07-04] MEDS: Levothyroxine 75 MCG Tab PO SCH (11:51)
[2021-07-04] MEDS: Folic Acid 1 MG Tab PO SCH (17:54)
[2021-07-04] MEDS ORDERED: Lidocaine/Prilocaine 2.5-2.5% Crm 5 GM Tube TOP ONE (18:05)
[2021-07-04] MEDS ORDERED: Ketorolac 15 MG/ML SDV IVPUSH ONE (18:34)
[2021-07-04] MEDS: Melatonin 3 MG Tab PO SCH (20:35)
[2021-07-04] MEDS: Mirtazapine 15 MG Tab PO SCH (20:35)
--- NOTE | 2021-07-05 00:21 | CONS ---
DATE OF CONSULTATION: 07/04/2021 DATE OF : 1940 PRIMARY CARE PHYSICIAN: Bridger Law M.D. CHIEF COMPLAINT: Vaginal discharge. HISTORY: This is an 80-year-old female. She is a known patient to me. She has complete uterovaginal prolapse, which has been treated with a pessary. She is not a surgical candidate. She was admitted with a fall and hypotension and was noted to have purulent vaginal discharge with concern that this could be a source of infection. I was asked to see the patient to have the pessary evaluated and to see if there was any risk of urinary retention related to the pessary or potential systemic infection related to vaginal discharge. She denies any vaginal bleeding or odor. She and her daughter have noted copious bright yellow vaginal discharge on her pad. She was last seen in the clinic on April 24. She has been using a Shaatz pessary. Since she was seen in clinic, she had a bowel obstruction with bowel resection and ostomy and a prolonged hospitalization outside of [place]. PAST MEDICAL HISTORY: Otherwise significant for pulmonary embolism, uterovaginal prolapse, hypercholesterolemia, migraine headaches, depression, and osteoporosis with compression fractures. SURGICAL HISTORY: In addition to the recent laparotomy and ostomy, she had appendectomy by laparotomy, right shoulder surgery in 2004, breast augmentation in her 30s, right breast implant replaced in the , left knee replacement in 2009, cholecystectomy 2011, and breast implants in 2011. FAMILY HISTORY: Mother of stroke. Father of pancreatic cancer. SOCIAL HISTORY: She has smoked in the past. She is not a current smoker. She is . She is not currently sexually active. She denies use of tobacco, alcohol, or street drugs. GYNECOLOGIC HISTORY: Last Pap was in 2019 and was normal. She had a negative Cologuard in 2019. She is G3, P3. ALLERGIES: None known. REVIEW OF SYSTEMS: Her appetite is improving. Please see complete H and P for admission for review of systems. PHYSICAL EXAMINATION: GENERAL: She appears cachectic. HEENT: She has a large ecchymosis on her forehead and left face. ABDOMEN: Soft and nontender with a healing vertical incision and an ostomy bag present. GENITOURINARY: External genitalia appears normal without lesions, and minimal redness. PROCEDURE: The perineum was treated with EMLA cream. She also received IV tramadol prior to removal of the pessary. Once pain was adequately controlled, the pessary was removed. There was a small amount of yellow vaginal discharge. The vagina did not have any apparent erosions. Affirm sample was taken and the pessary was cleaned with Hibiclens and rinsed thoroughly and re-placed using KY jelly for lubrication. The patient tolerated the procedure well. ASSESSMENT AND PLAN: Complete uterovaginal prolapse with vaginal discharge as well as concern for urinary retention related to pessary, concern for infection related to pessary. The pessary was removed, cleaned, and reinserted. A swab was taken to evaluate for BV and yeast. She requested that the pessary be re-placed, and I did agree with her the discharge seems to have improved significantly on her current IV antibiotics. She will follow up in the clinic as scheduled on 07/20/2021. ERIN LOAIZA /[id number]
[2021-07-05] MEDS: Acetaminophen 325 MG Tab PO PRN (02:38)
[2021-07-05] MEDS: Levothyroxine 75 MCG Tab PO SCH (06:47)
[2021-07-05 07:37] LABS: CARBON DIOXIDE,CO2 15.7 mmol/L (21.0-32.0); POTASSIUM,K 3.6 mmol/L (3.5-5.1)
[2021-07-05] MEDS: Sertraline 100 MG Tab PO SCH (08:51)
[2021-07-05] MEDS: Apixaban 5 MG Tab PO SCH ×2 (08:51→20:27)
[2021-07-05] MEDS: Rosuvastatin 10 MG Tab PO SCH (08:52)
[2021-07-05] MEDS: Folic Acid 1 MG Tab PO SCH (08:52)
[2021-07-05] MEDS: Dronabinol 2.5 MG Cap PO SCH (08:52)
[2021-07-05] MEDS: Midodrine 5 MG Tab PO SCH ×2 (11:39→17:50)
--- NOTE | 2021-07-05 11:43 | PCM.PN ---
<Rico Gregory - Last Filed: 07/05/21 11:56> - General Info Date of Service: 07/05/21 Subjective Update: Patient states she slept well overnight, has a good appetite. Patient still states mild dizziness when standing up quickly. Denies chest pain, shortness of breath, fever, chills. - Review of Systems General: Denies: Fever, Chills Pulmonary: Denies: Shortness of Breath, Cough Cardiovascular: Denies: Chest Pain, Dyspnea on Exertion, Edema Gastrointestinal: Denies: Abdominal Pain, Decreased Appetite, Diarrhea, Nausea, Vomiting Neurological: Reports: Dizziness. Denies: Confusion, Headache Psychiatric: Denies: Confusion - Patient Data Vitals - Most Recent: Last Vital Signs Temp 97.4 F 07/05/21 11:27 Pulse 89 07/05/21 11:27 Resp 22 H 07/05/21 11:27 BP 94/55 L 07/05/21 11:27 Pulse Ox 96 07/05/21 11:27 Orthostatic Blood Pressure [ 72/40 Standing] Orthostatic Blood Pressure [ 87/41 Sitting] Orthostatic Blood Pressure [ 82/49 Supine] Weight - Most Recent: 47.4 kg I&O - Last 24 Hours: Intake & Output 07/04/21 07/05/21 07/05/21 22:59 06:59 14:59 Intake Total 2360 250 Output Total 600 550 Balance 1760 -300 Lab Results Last 24 Hours: Laboratory Results - last 24 hr 07/04/21 07/04/21 07/05/21 Range/Units 06:10 19:00 06:40 WBC 7.93 (4.0-11.0) K/uL RBC 2.63 L (4.30-5.90) M/uL Hgb 8.0 L (12.0-16.0) g/dL Hct 24.7 L (36.0-46.0) % MCV 93.9 (80.0-98.0) fL MCH 30.4 (27.0-32.0) pg MCHC 32.4 (31.0-37.0) g/dL RDW Std Deviation 52.2 (28.0-62.0) fl RDW Coeff of Sofia 15 (11.0-15.0) % Plt Count 127 L (150-400) K/uL MPV 10.30 (7.40-12.00) fL Neut % (Auto) 71.9 (48.0-80.0) % Lymph % (Auto) 19.9 (16.0-40.0) % [place] % (Auto) 4.4 (0.0-15.0) % Eos % (Auto) 3.5 (0.0-7.0) % Baso % (Auto) 0.3 (0.0-1.5) % Neut # (Auto) 5.7 (1.4-5.7) K/uL Lymph # (Auto) 1.6 (0.6-2.4) K/uL [place] # (Auto) 0.4 (0.0-0.8) K/uL Eos # (Auto) 0.3 (0.0-0.7) K/uL Baso # (Auto) 0.0 (0.0-0.1) K/uL Nucleated RBC % 0.0 /100WBC Nucleated RBCs # 0 K/uL Sodium (136-145) mmol/L Potassium (3.5-5.1) mmol/L Chloride (98-107) mmol/L Carbon Dioxide (21.0-32.0) mmol/L BUN (7.0-18.0) mg/dL Creatinine (0.6-1.0) mg/dL Est Cr Clr Drug Dosing mL/min Estimated GFR (MDRD) ml/min Glucose (74-106) mg/dL Calcium (8.5-10.1) mg/dL Vitamin B12 931 (193-986) pg/mL Vitamin D 25-Hydroxy 31.2 (30.0-100.0) ng/mL Folate 8.00 L (8.60-58.90) ng/mL Ya species DNA NEGATIVE (NEGATIVE) Gardnerella DNA Probe NEGATIVE (NEGATIVE) Trichomonas DNA Probe NEGATIVE (NEGATIVE) 07/05/21 Range/Units 06:40 WBC (4.0-11.0) K/uL RBC (4.30-5.90) M/uL Hgb (12.0-16.0) g/dL Hct (36.0-46.0) % MCV (80.0-98.0) fL MCH (27.0-32.0) pg MCHC (31.0-37.0) g/dL RDW Std Deviation (28.0-62.0) fl RDW Coeff of Sofia (11.0-15.0) % Plt Count (150-400) K/uL MPV (7.40-12.00) fL Neut % (Auto) (48.0-80.0) % Lymph % (Auto) (16.0-40.0) % [place] % (Auto) (0.0-15.0) % Eos % (Auto) (0.0-7.0) % Baso % (Auto) (0.0-1.5) % Neut # (Auto) (1.4-5.7) K/uL Lymph # (Auto) (0.6-2.4) K/uL [place] # (Auto) (0.0-0.8) K/uL Eos # (Auto) (0.0-0.7) K/uL Baso # (Auto) (0.0-0.1) K/uL Nucleated RBC % /100WBC Nucleated RBCs # K/uL Sodium 138 (136-145) mmol/L Potassium 3.6 (3.5-5.1) mmol/L Chloride 110 H (98-107) mmol/L Carbon Dioxide 15.7 L (21.0-32.0) mmol/L BUN 27 H (7.0-18.0) mg/dL Creatinine 1.3 H (0.6-1.0) mg/dL Est Cr Clr Drug Dosing 25.40 mL/min Estimated GFR (MDRD) 39.3 ml/min Glucose 88 (74-106) mg/dL Calcium 6.9 L (8.5-10.1) mg/dL Vitamin B12 (193-986) pg/mL Vitamin D 25-Hydroxy (30.0-100.0) ng/mL Folate (8.60-58.90) ng/mL Ya species DNA (NEGATIVE) Gardnerella DNA Probe (NEGATIVE) Trichomonas DNA Probe (NEGATIVE) Jonel Results Last 24 Hours: Microbiology 07/02/21 00:00 Urine Culture - Preliminary Urine Gram Negative Rods 07/02/21 19:37 Aerobic Blood Culture - Preliminary Blood - Venous - Lab Draw NO GROWTH AFTER 2 DAYS Anaerobic Blood Culture - Final 07/02/21 19:15 Aerobic Blood Culture - Preliminary Blood - Venous NO GROWTH AFTER 2 DAYS Anaerobic Blood Culture - Preliminary NO GROWTH AFTER 2 DAYS 07/04/21 14:20 Stool Occult Blood (JONEL) - Final Stool / Feces Med Orders - Current: Current Medications Acetaminophen (Acetaminophen 325 Mg Tab) 650 mg PO Q4H PRN PRN Reason: Pain (Mild 1-3)/fever Last Admin: 07/05/21 02:38 Dose: 650 mg Documented by: Apixaban (Apixaban 5 Mg Tab) 5 mg PO BID [facility] Last Admin: 07/05/21 08:51 Dose: 5 mg Documented by: Dronabinol (Dronabinol 2.5 Mg Cap) 2.5 mg PO DAILY [facility] Last Admin: 07/05/21 08:52 Dose: 2.5 mg Documented by: Folic Acid (Folic Acid 1 Mg Tab) 1 mg PO DAILY [facility] Last Admin: 07/05/21 08:52 Dose: 1 mg Documented by: Ceftriaxone Sodium/Dextrose (Rocephin In Dextrose,Iso-Osm 1 Gm/50 Ml) 50 mls @ 50 mls/hr IV Q24H [facility] Last Admin: 07/05/21 02:38 Dose: 50 mls/hr Documented by: Levothyroxine Sodium (Levothyroxine 75 Mcg Tab) 75 mcg PO ACBREAKFAST [facility] Last Admin: 07/05/21 06:47 Dose: 75 mcg Documented by: Loperamide HCl (Loperamide 2 Mg Cap) 2 mg PO Q6H PRN PRN Reason: Diarrhea Melatonin (Melatonin 3 Mg Tab) 9 mg PO BEDTIME [facility] Last Admin: 07/04/21 20:35 Dose: 9 mg Documented by: Midodrine (Midodrine 5 Mg Tab) 2.5 mg PO TIDAC [facility] Last Admin: 07/05/21 11:39 Dose: 2.5 mg Documented by: Mirtazapine (Mirtazapine 15 Mg Tab) 45 mg PO BEDTIME [facility] Last Admin: 07/04/21 20:35 Dose: 45 mg Documented by: Ondansetron HCl (Ondansetron 4 Mg/2 Ml Sdv) 4 mg IVPUSH Q4H PRN PRN Reason: Nausea/Vomiting Last Admin: 07/03/21 17:37 Dose: 4 mg Documented by: Rosuvastatin Calcium (Rosuvastatin 10 Mg Tab) 20 mg PO DAILY [facility] Last Admin: 07/05/21 08:52 Dose: 20 mg Documented by: Sertraline HCl (Sertraline 100 Mg Tab) 100 mg PO DAILY [facility] Last Admin: 07/05/21 08:51 Dose: 100 mg Documented by: Sodium Chloride (Sodium Chloride 0.9% 10 Ml Syringe) 10 ml FLUSH ASDIRECTED PRN PRN Reason: Keep Vein Open Last Admin: 07/02/21 20:41 Dose: 10 ml Documented by: Sodium Chloride (Sodium Chloride 0.9% 2.5 Ml Syringe) 2.5 ml FLUSH ASDIRECTED PRN PRN Reason: Keep Vein Open Last Admin: 07/02/21 20:41 Dose: 2.5 ml Documented by: Discontinued Medications Dronabinol (Dronabinol 2.5 Mg Cap) 10 mg PO DAILY [facility] Last Admin: 07/04/21 11:24 Dose: Not Given Documented by: Fluconazole (Fluconazole 150 Mg Tab) 150 mg PO ONETIME ONE Stop: 07/03/21 15:16 Last Admin: 07/03/21 15:54 Dose: 150 mg Documented by: Sodium Chloride (Normal Saline) 1,000 mls @ 999 mls/hr IV .Bolus ONE Stop: 07/02/21 20:10 Last Admin: 07/02/21 19:30 Dose: 999 mls/hr Documented by: Lactated Ringer's (Ringers, Lactated) 1,000 mls @ 999 mls/hr IV .BOLUS [facility] Last Admin: 07/02/21 20:40 Dose: 999 mls/hr Documented by: Lactated Ringer's (Ringers, Lactated) 1,000 mls @ 999 mls/hr IV .BOLUS [facility] Last Admin: 07/02/21 22:36 Dose: 999 mls/hr Documented by: Ceftriaxone Sodium 1 gm/ (Sodium Chloride) 50 mls @ 100 mls/hr IV Q24H [facility] Last Admin: 07/03/21 08:09 Dose: Not Given Documented by: Sodium Chloride (Normal Saline) 1,000 mls @ 125 mls/hr IV ASDIRECTED [facility] Last Admin: 07/04/21 12:18 Dose: 125 mls/hr Documented by: Ceftriaxone Sodium/Dextrose (Rocephin In Dextrose,Iso-Osm 1 Gm/50 Ml) Confirm Administered Dose 50 mls @ as directed .ROUTE .STK-MED ONE Stop: 07/03/21 01:10 Last Admin: 07/03/21 08:08 Dose: Not Given Documented by: Influenza Virus Vaccine (Pharmacy To Dose - Influenza Vaccine) 1 each IM ONETIME ONE Stop: 07/03/21 00:21 Influenza Virus Vaccine (Flu Vacc [id number](65yr Up)/Pf 240 Mcg/0.7 Ml Syringe) 240 mcg IM .ONCE ONE Stop: 07/03/21 10:01 Ketorolac Tromethamine (Ketorolac 15 Mg/Ml Sdv) 15 mg IVPUSH ONETIME ONE Stop: 07/04/21 18:35 Last Admin: 07/04/21 18:41 Dose: 15 mg Documented by: Levothyroxine Sodium (Levothyroxine 75 Mcg Tab) 75 mcg PO DAILY [facility] Lidocaine/Prilocaine (Lidocaine/Prilocaine 2.5-2.5% Crm 5 Gm Tube) 1 gm TOP ONETIME ONE Stop: 07/04/21 18:06 Last Admin: 07/04/21 18:45 Dose: 1 applic Documented by: Morphine Sulfate (Morphine 4 Mg/Ml Syringe) 2 mg IVPUSH ONETIME ONE Stop: 07/02/21 22:22 Last Admin: 07/02/21 22:43 Dose: Not Given Documented by: Ondansetron HCl (Ondansetron 4 Mg/2 Ml Sdv) 4 mg IVPUSH ONETIME ONE Stop: 07/02/21 19:44 Last Admin: 07/02/21 20:40 Dose: 4 mg Documented by: Dronabinol 10 Mg Cap 1 each PO DAILY [facility] Last Admin: 07/04/21 09:30 Dose: 1 each Documented by: Potassium Chloride (Potassium Chloride 20 Meq Tab.Er) 20 meq PO ONETIME ONE Stop: 07/03/21 13:01 Last Admin: 07/03/21 13:17 Dose: 20 meq Documented by: Potassium Chloride (Potassium Chloride 20 Meq Tab.Er) 40 meq PO ONETIME ONE Stop: 07/04/21 08:46 Last Admin: 07/04/21 09:44 Dose: 40 meq Documented by: - Exam General: Alert, Oriented Lungs: Clear to Auscultation, Normal Respiratory Effort Cardiovascular: Regular Rate, Regular Rhythm GI/Abdominal Exam: Soft, Non-Tender Extremities: No Pedal Edema Psy/Mental Status: Alert - Patient Data Lab Results Last 24 hrs: Laboratory Results - last 24 hr 07/04/21 07/04/21 07/05/21 Range/Units 06:10 19:00 06:40 WBC 7.93 (4.0-11.0) K/uL RBC 2.63 L (4.30-5.90) M/uL Hgb 8.0 L (12.0-16.0) g/dL Hct 24.7 L (36.0-46.0) % MCV 93.9 (80.0-98.0) fL MCH 30.4 (27.0-32.0) pg MCHC 32.4 (31.0-37.0) g/dL RDW Std Deviation 52.2 (28.0-62.0) fl RDW Coeff of Sofia 15 (11.0-15.0) % Plt Count 127 L (150-400) K/uL MPV 10.30 (7.40-12.00) fL Neut % (Auto) 71.9 (48.0-80.0) % Lymph % (Auto) 19.9 (16.0-40.0) % [place] % (Auto) 4.4 (0.0-15.0) % Eos % (Auto) 3.5 (0.0-7.0) % Baso % (Auto) 0.3 (0.0-1.5) % Neut # (Auto) 5.7 (1.4-5.7) K/uL Lymph # (Auto) 1.6 (0.6-2.4) K/uL [place] # (Auto) 0.4 (0.0-0.8) K/uL Eos # (Auto) 0.3 (0.0-0.7) K/uL Baso # (Auto) 0.0 (0.0-0.1) K/uL Nucleated RBC % 0.0 /100WBC Nucleated RBCs # 0 K/uL Sodium (136-145) mmol/L Potassium (3.5-5.1) mmol/L Chloride (98-107) mmol/L Carbon Dioxide (21.0-32.0) mmol/L BUN (7.0-18.0) mg/dL Creatinine (0.6-1.0) mg/dL Est Cr Clr Drug Dosing mL/min Estimated GFR (MDRD) ml/min Glucose (74-106) mg/dL Calcium (8.5-10.1) mg/dL Vitamin B12 931 (193-986) pg/mL Vitamin D 25-Hydroxy 31.2 (30.0-100.0) ng/mL Folate 8.00 L (8.60-58.90) ng/mL Ya species DNA NEGATIVE (NEGATIVE) Gardnerella DNA Probe NEGATIVE (NEGATIVE) Trichomonas DNA Probe NEGATIVE (NEGATIVE) 07/05/21 Range/Units 06:40 WBC (4.0-11.0) K/uL RBC (4.30-5.90) M/uL Hgb (12.0-16.0) g/dL Hct (36.0-46.0) % MCV (80.0-98.0) fL MCH (27.0-32.0) pg MCHC (31.0-37.0) g/dL RDW Std Deviation (28.0-62.0) fl RDW Coeff of Sofia (11.0-15.0) % Plt Count (150-400) K/uL MPV (7.40-12.00) fL Neut % (Auto) (48.0-80.0) % Lymph % (Auto) (16.0-40.0) % [place] % (Auto) (0.0-15.0) % Eos % (Auto) (0.0-7.0) % Baso % (Auto) (0.0-1.5) % Neut # (Auto) (1.4-5.7) K/uL Lymph # (Auto) (0.6-2.4) K/uL [place] # (Auto) (0.0-0.8) K/uL Eos # (Auto) (0.0-0.7) K/uL Baso # (Auto) (0.0-0.1) K/uL Nucleated RBC % /100WBC Nucleated RBCs # K/uL Sodium 138 (136-145) mmol/L Potassium 3.6 (3.5-5.1) mmol/L Chloride 110 H (98-107) mmol/L Carbon Dioxide 15.7 L (21.0-32.0) mmol/L BUN 27 H (7.0-18.0) mg/dL Creatinine 1.3 H (0.6-1.0) mg/dL Est Cr Clr Drug Dosing 25.40 mL/min Estimated GFR (MDRD) 39.3 ml/min Glucose 88 (74-106) mg/dL Calcium 6.9 L (8.5-10.1) mg/dL Vitamin B12 (193-986) pg/mL Vitamin D 25-Hydroxy (30.0-100.0) ng/mL Folate (8.60-58.90) ng/mL Ya species DNA (NEGATIVE) Gardnerella DNA Probe (NEGATIVE) Trichomonas DNA Probe (NEGATIVE) Result Diagrams: 07/05/21 06:40 07/05/21 06:40 Jonel Results Last 24 hrs: Microbiology 07/02/21 00:00 Urine Culture - Preliminary Urine Gram Negative Rods 07/02/21 19:37 Aerobic Blood Culture - Preliminary Blood - Venous - Lab Draw NO GROWTH AFTER 2 DAYS Anaerobic Blood Culture - Final 07/02/21 19:15 Aerobic Blood Culture - Preliminary Blood - Venous NO GROWTH AFTER 2 DAYS Anaerobic Blood Culture - Preliminary NO GROWTH AFTER 2 DAYS 07/04/21 14:20 Stool Occult Blood (JONEL) - Final Stool / Feces Sepsis Event Note - Evaluation Sepsis Screening Result: No Definite Risk - Focused Exam Vital Signs: Vital Signs Temp Pulse Resp BP Pulse Ox Pulse Ox 07/05/21 11:27 97.4 F 89 22 H 94/55 L 96 07/05/21 07:43 97.2 F 64 20 88/44 L 96 07/05/21 04:00 97.7 F 76 19 89/50 L 97 07/05/21 00:00 97.9 F 75 18 92/52 L 98 96 - Problem List & Annotations (1) Dehydration SNOMED Code(s): 94016495 Code(s): E86.0 - DEHYDRATION Status: Acute (2) Hypotension SNOMED Code(s): 21607606 Code(s): I95.9 - HYPOTENSION, UNSPECIFIED Status: Acute (3) Short gut syndrome SNOMED Code(s): 37197707 Code(s): K91.2 - POSTSURGICAL MALABSORPTION, NOT ELSEWHERE CLASSIFIED Status: Acute (4) UTI (urinary tract infection) SNOMED Code(s): 85955468 Code(s): N39.0 - URINARY TRACT INFECTION, SITE NOT SPECIFIED Status: Acute - Problem List Review Problem List Initiated/Reviewed/Updated: Yes - My Orders Last 24 Hours: My Active Orders 07/04/21 18:00 Folic Acid 1 mg PO DAILY 07/05/21 09:00 dronabinoL [Marinol] 2.5 mg PO DAILY 07/05/21 11:30 Midodrine 2.5 mg PO TIDAC - Plan Plan:: HypothyroidismTSH 17.06, T4 0.51. Levothyroxine 75 mcg daily. 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 Dronabinol reduced to 2.5 mg daily. Patient may titrate up to 5 mg if appetite becomes poor. Pessary removed, cleaned and reinserted by Dr. Stewart yesterday. Patient states tolerating the procedure well. <Derik Smith - Last Filed: 07/07/21 15:31> - Patient Data Vitals - Most Recent: Last Vital Signs Temp 37.3 C 07/06/21 08:00 Pulse 75 07/06/21 08:00 Resp 22 H 07/06/21 08:00 BP 90/47 L 07/06/21 08:00 Pulse Ox 94 L 07/06/21 08:00 Orthostatic Blood Pressure [ 72/40 Standing] Orthostatic Blood Pressure [ 87/41 Sitting] Orthostatic Blood Pressure [ 82/49 Supine] Jonel Results Last 24 Hours: Microbiology 07/02/21 19:37 Aerobic Blood Culture - Preliminary Blood - Venous - Lab Draw NO GROWTH AFTER 4 DAYS Anaerobic Blood Culture - Final 07/02/21 19:15 Aerobic Blood Culture - Preliminary Blood - Venous NO GROWTH AFTER 4 DAYS Anaerobic Blood Culture - Preliminary NO GROWTH AFTER 4 DAYS 07/02/21 00:00 Urine Culture - Final Urine Serratia Marcescens Med Orders - Current: Current Medications Discontinued Medications Acetaminophen (Acetaminophen 325 Mg Tab) 650 mg PO Q4H PRN PRN Reason: Pain (Mild 1-3)/fever Last Admin: 07/06/21 02:26 Dose: 650 mg Documented by: Apixaban (Apixaban 5 Mg Tab) 5 mg PO BID [facility] Last Admin: 07/06/21 09:28 Dose: 5 mg Documented by: Dronabinol (Dronabinol 2.5 Mg Cap) 10 mg PO DAILY [facility] Last Admin: 07/04/21 11:24 Dose: Not Given Documented by: Dronabinol (Dronabinol 2.5 Mg Cap) 2.5 mg PO DAILY [facility] Last Admin: 07/06/21 08:31 Dose: 2.5 mg Documented by: Fluconazole (Fluconazole 150 Mg Tab) 150 mg PO ONETIME ONE Stop: 07/03/21 15:16 Last Admin: 07/03/21 15:54 Dose: 150 mg Documented by: Folic Acid (Folic Acid 1 Mg Tab) 1 mg PO DAILY [facility] Last Admin: 07/06/21 09:29 Dose: 1 mg Documented by: Sodium Chloride (Normal Saline) 1,000 mls @ 999 mls/hr IV .Bolus ONE Stop: 07/02/21 20:10 Last Admin: 07/02/21 19:30 Dose: 999 mls/hr Documented by: Lactated Ringer's (Ringers, Lactated) 1,000 mls @ 999 mls/hr IV .BOLUS [facility] Last Admin: 07/02/21 20:40 Dose: 999 mls/hr Documented by: Lactated Ringer's (Ringers, Lactated) 1,000 mls @ 999 mls/hr IV .BOLUS [facility] Last Admin: 07/02/21 22:36 Dose: 999 mls/hr Documented by: Ceftriaxone Sodium 1 gm/ (Sodium Chloride) 50 mls @ 100 mls/hr IV Q24H [facility] Last Admin: 07/03/21 08:09 Dose: Not Given Documented by: Sodium Chloride (Normal Saline) 1,000 mls @ 125 mls/hr IV ASDIRECTED [facility] Last Admin: 07/04/21 12:18 Dose: 125 mls/hr Documented by: Ceftriaxone Sodium/Dextrose (Rocephin In Dextrose,Iso-Osm 1 Gm/50 Ml) Confirm Administered Dose 50 mls @ as directed .ROUTE .STK-MED ONE Stop: 07/03/21 01:10 Last Admin: 07/03/21 08:08 Dose: Not Given Documented by: Ceftriaxone Sodium/Dextrose (Rocephin In Dextrose,Iso-Osm 1 Gm/50 Ml) 50 mls @ 50 mls/hr IV Q24H [facility] Last Admin: 07/06/21 02:17 Dose: 50 mls/hr Documented by: Influenza Virus Vaccine (Pharmacy To Dose - Influenza Vaccine) 1 each IM ONETIME ONE Stop: 07/03/21 00:21 Influenza Virus Vaccine (Flu Vacc [id number](65yr Up)/Pf 240 Mcg/0.7 Ml Syringe) 240 mcg IM .ONCE ONE Stop: 07/03/21 10:01 Ketorolac Tromethamine (Ketorolac 15 Mg/Ml Sdv) 15 mg IVPUSH ONETIME ONE Stop: 07/04/21 18:35 Last Admin: 07/04/21 18:41 Dose: 15 mg Documented by: Levothyroxine Sodium (Levothyroxine 75 Mcg Tab) 75 mcg PO DAILY [facility] Levothyroxine Sodium (Levothyroxine 75 Mcg Tab) 75 mcg PO ACBREAKFAST [facility] Last Admin: 07/06/21 08:26 Dose: 75 mcg Documented by: Lidocaine/Prilocaine (Lidocaine/Prilocaine 2.5-2.5% Crm 5 Gm Tube) 1 gm TOP ONETIME ONE Stop: 07/04/21 18:06 Last Admin: 07/04/21 18:45 Dose: 1 applic Documented by: Loperamide HCl (Loperamide 2 Mg Cap) 2 mg PO Q6H PRN PRN Reason: Diarrhea Loperamide HCl (Loperamide 2 Mg Cap) 2 mg PO Q12HR [facility] Last Admin: 07/06/21 08:31 Dose: 2 mg Documented by: Melatonin (Melatonin 3 Mg Tab) 9 mg PO BEDTIME [facility] Last Admin: 07/04/21 20:35 Dose: 9 mg Documented by: Midodrine (Midodrine 5 Mg Tab) 2.5 mg PO TIDAC [facility] Last Admin: 07/06/21 11:24 Dose: 2.5 mg Documented by: Mirtazapine (Mirtazapine 15 Mg Tab) 45 mg PO BEDTIME [facility] Last Admin: 07/05/21 21:00 Dose: Not Given Documented by: Morphine Sulfate (Morphine 4 Mg/Ml Syringe) 2 mg IVPUSH ONETIME ONE Stop: 07/02/21 22:22 Last Admin: 07/02/21 22:43 Dose: Not Given Documented by: Ondansetron HCl (Ondansetron 4 Mg/2 Ml Sdv) 4 mg IVPUSH ONETIME ONE Stop: 07/02/21 19:44 Last Admin: 07/02/21 20:40 Dose: 4 mg Documented by: Ondansetron HCl (Ondansetron 4 Mg/2 Ml Sdv) 4 mg IVPUSH Q4H PRN PRN Reason: Nausea/Vomiting Last Admin: 07/03/21 17:37 Dose: 4 mg Documented by: Oxycodone/Acetaminophen (Acetaminophen/Oxycodone 325-10 Mg Tab) 1 tab PO Q6H PRN PRN Reason: Pain Last Admin: 07/06/21 06:10 Dose: 1 tab Documented by: Dronabinol 10 Mg Cap 1 each PO DAILY [facility] Last Admin: 07/04/21 09:30 Dose: 1 each Documented by: Mirtazipine 45 Mg (Tablet) 1 each PO BEDTIME [facility] Last Admin: 07/05/21 20:27 Dose: 1 each Documented by: Melatonin 5 Mg (Tablet) 1 each PO BEDTIME [facility] Last Admin: 07/05/21 20:28 Dose: 1 each Documented by: Potassium Chloride (Potassium Chloride 20 Meq Tab.Er) 20 meq PO ONETIME ONE Stop: 07/03/21 13:01 Last Admin: 07/03/21 13:17 Dose: 20 meq Documented by: Potassium Chloride (Potassium Chloride 20 Meq Tab.Er) 40 meq PO ONETIME ONE Stop: 07/04/21 08:46 Last Admin: 07/04/21 09:44 Dose: 40 meq Documented by: Rosuvastatin Calcium (Rosuvastatin 10 Mg Tab) 20 mg PO DAILY [facility] Last Admin: 07/06/21 09:28 Dose: 20 mg Documented by: Sertraline HCl (Sertraline 100 Mg Tab) 100 mg PO DAILY [facility] Last Admin: 07/06/21 09:28 Dose: 100 mg Documented by: Sodium Chloride (Sodium Chloride 0.9% 10 Ml Syringe) 10 ml FLUSH ASDIRECTED PRN PRN Reason: Keep Vein Open Last Admin: 07/02/21 20:41 Dose: 10 ml Documented by: Sodium Chloride (Sodium Chloride 0.9% 2.5 Ml Syringe) 2.5 ml FLUSH ASDIRECTED PRN PRN Reason: Keep Vein Open Last Admin: 07/02/21 20:41 Dose: 2.5 ml Documented by: - Patient Data Result Diagrams: 07/06/21 05:26 07/06/21 05:26 Jonel Results Last 24 hrs: Microbiology 07/02/21 19:37 Aerobic Blood Culture - Preliminary Blood - Venous - Lab Draw NO GROWTH AFTER 4 DAYS Anaerobic Blood Culture - Final 07/02/21 19:15 Aerobic Blood Culture - Preliminary Blood - Venous NO GROWTH AFTER 4 DAYS Anaerobic Blood Culture - Preliminary NO GROWTH AFTER 4 DAYS 07/02/21 00:00 Urine Culture - Final Urine Serratia Marcescens - Plan Plan:: I have seen and evaluated the patient and agree with the residents note unless specified in my note
[2021-07-05] MEDS: Loperamide 2 MG Cap PO SCH (20:27)
[2021-07-05] MEDS ORDERED: MELATONIN 5 MG TABLET PO SCH (21:00)
[2021-07-05] MEDS: Mirtazapine 15 MG Tab PO SCH (21:00)
[2021-07-05] MEDS ORDERED: MIRTAZAPINE 45 MG PO SCH (21:00)
[2021-07-06] MEDS: Acetaminophen 325 MG Tab PO PRN (02:26)
[2021-07-06] MEDS ORDERED: Acetaminophen/oxyCODONE 325-10 MG Tab PO PRN (05:49)
[2021-07-06 07:32] LABS: CARBON DIOXIDE,CO2 16.6 mmol/L (21.0-32.0); POTASSIUM,K 3.7 mmol/L (3.5-5.1)
[2021-07-06] MEDS: Midodrine 5 MG Tab PO SCH ×2 (08:26→11:24)
[2021-07-06] MEDS: Levothyroxine 75 MCG Tab PO SCH (08:26)
[2021-07-06] MEDS: Loperamide 2 MG Cap PO SCH (08:31)
[2021-07-06] MEDS: Dronabinol 2.5 MG Cap PO SCH (08:31)
[2021-07-06 08:48] VITALS: BP 90/47; PULSE 75
[2021-07-06] MEDS: Rosuvastatin 10 MG Tab PO SCH (09:28)
[2021-07-06] MEDS: Apixaban 5 MG Tab PO SCH (09:28)
[2021-07-06] MEDS: Sertraline 100 MG Tab PO SCH (09:28)
[2021-07-06] MEDS: Folic Acid 1 MG Tab PO SCH (09:29)
--- NOTE | 2021-07-06 14:27 | PCM.DCSUM1 ---
<Rico Gregory - Last Filed: 07/06/21 22:23> Discharge Summary - Hospital Course Free Text/Narrative:: 80-presented to the ER [place] hypotension, dizziness. Patients manager testing has been measuring patient's blood pressure at home and reports that it has been in the 80s systolic for the past 10 days. Patient spoke to primary care physician at which time laboratory was ordered. Laboratory work came back with significant dehydration, patient was referred to emergency room for further evaluation and treatment. Patient was admitted to [facility] for hypotension secondary to dehydration. Patient also has mild UTI on admission. Patient also states having a bowel resection approximately 1 month ago at [facility]. Patient had no concerns post surgery but recently has been experiencing decreased p.o. intake of both solids and fluids. Primary care physician has prescribed patient dronabinol for increasing appetite which patient states has helped. There were some concerns over increased stool and fluid output noted in the ostomy which family members suspected might be a source of dehydration. Patient denies any recent fevers, shakes, chills, vomiting. She denies any recent cough cold or rhinorrhea. She denies any chest pain or shortness of breath. She denies any abdominal pain or discomfort. She does report that she has had nausea with decreased p.o. intake. She reports that she is had increased stool output from her ileostomy. She denies any melena or bright red blood in her stool. Patient does complain of dizziness and generalized weakness. Patient does have a significant bruising to her left forehead per her daughter. Daughter reports that she has not been started any new medications recently that would cause her blood pressure to drop. Patient discharged home on midodrine 2.5 mg 3 times daily for continued hypertension, Xarelto 10 mg reduced from 20 mg, folic acid 1 mg daily, cefdinir 300 mg, dronabinol 2.5 mg reduced from 10 mg. - Discharge Data Discharge Date: 07/06/21 Discharge Disposition: Home, W Home Health Agency 06 Condition: Good - Referral to Home Health Date of Face to Face Encounter: 07/06/21 Reason for Homebound Status: Weakness and deconditioning due to hospitalization, unsteady when walking and a fall risk Primary Care Physician: Bridger Law MD Skilled Need: Physical therapy, strengthening due to weakness, deconditioning, gait instability and high fall risk - Discharge Diagnosis/Problem(s) (1) Dehydration SNOMED Code(s): 30291944 ICD Code: E86.0 - DEHYDRATION Status: Acute (2) Hypotension SNOMED Code(s): 85189771 ICD Code: I95.9 - HYPOTENSION, UNSPECIFIED Status: Acute (3) Short gut syndrome SNOMED Code(s): 40414380 ICD Code: K91.2 - POSTSURGICAL MALABSORPTION, NOT ELSEWHERE CLASSIFIED Status: Acute (4) UTI (urinary tract infection) SNOMED Code(s): 51501527 ICD Code: N39.0 - URINARY TRACT INFECTION, SITE NOT SPECIFIED Status: Acute - Patient Summary/Data Consults: Consultations 07/03/21 00:41 PT Evaluation and Treatment [CONS] Routine 07/04/21 10:35 Consult to Physician [CONS] Routine 07/05/21 14:31 Consult to Home Health [CONS] Routine - Patient Instructions Diet: Usual Diet as Tolerated Activity: As Tolerated Showering/Bathing: May Shower Notify Provider of: Fever, Increased Pain, Nausea and/or Vomiting Other/Special Instructions: Please to review all discharge medications with primary care physician at follow-up visit. Xarelto was reduced from 20 mg to 10 mg daily. Patient to resume 10 mg dosage and review with primary care physician for any changes. Dronabinol was reduced from 10 mg to 2.5 mg daily. Patient to continue 2.5 mg daily and discontinue 10 mg dose. Patient started on midodrine 2.5 mg 3 times daily for hypotension. Patient to report any headache, dizziness, chest pain, shortness of breath, fever, chills, nausea, diarrhea, vomiting, changes in appetite to primary care physician. Patient disc harged with home health physical therapy. - Discharge Plan Prescriptions/Med Rec: dronabinoL [Dronabinol] 2.5 mg PO DAILY #16 capsule Folic Acid 1 mg PO DAILY #14 tablet Midodrine 2.5 mg PO TIDAC #63 tablet Cefdinir [Omnicef] 300 mg PO BID #6 cap Rivaroxaban [Xarelto] 10 mg PO DAILY #14 tab Home Medications: Home Meds Melatonin 1 tab PO BEDTIME 07/02/21 [History] Mirtazapine 45 mg PO BEDTIME 07/02/21 [History] Ondansetron [Zofran ODT] 1 tab PO DAILY PRN 07/02/21 [History] Rosuvastatin [Crestor] 20 mg PO DAILY 07/02/21 [History] Sertraline [Zoloft] 100 mg PO DAILY 07/02/21 [History] LORazepam [Ativan] 2 mg PO BEDTIME PRN 07/03/21 [History] Levothyroxine 75 mcg PO DAILY 07/03/21 [History] Cefdinir [Omnicef] 300 mg PO BID #6 cap 07/06/21 [Rx] Folic Acid 1 mg PO DAILY #14 tablet 07/06/21 [Rx] Midodrine 2.5 mg PO TIDAC #63 tablet 07/06/21 [Rx] Rivaroxaban [Xarelto] 10 mg PO DAILY #14 tab 07/06/21 [Rx] dronabinoL [Dronabinol] 2.5 mg PO DAILY #16 capsule 07/06/21 [Rx] Patient Handouts: Cefdinir Capsules, Rivaroxaban oral tablets, Dronabinol, THC capsules, Midodrine tablets, Folic Acid, Vitamin B9 tablets Forms: ED Department Discharge Referrals: Bridger Law MD [Primary Care Provider] - Leigha Anders MD [Resident] - - Discharge Summary/Plan Comment DC Time >30 min.: Yes Total # of Minutes for Discharge Time: 35 - General Info Date of Service: 07/06/21 Subjective Update: Patient was apprehensive of leaving today as she is concerned about who will help her at home. Per discussion with the family patient's grandchildren will be at home over the weekend to assist with patient's needs. Patient had fever, chills, nausea, vomiting abdominal pain, chest pain, shortness of breath. Patient states improvement with dizziness and lightheadedness. Patient states good appetite. - Review of Systems General: Denies: Fever, Chills Pulmonary: Denies: Shortness of Breath, Cough Cardiovascular: Denies: Chest Pain, Orthopnea, Edema Gastrointestinal: Denies: Abdominal Pain, Decreased Appetite, Diarrhea, Nausea, Vomiting Skin: Denies: Cyanosis Neurological: Denies: Confusion, Dizziness, Headache Psychiatric: Reports: Anxiety - Patient Data Vitals - Most Recent: Last Vital Signs Temp 99.1 F 07/06/21 08:00 Pulse 75 07/06/21 08:00 Resp 22 H 07/06/21 08:00 BP 90/47 L 07/06/21 08:00 Pulse Ox 94 L 07/06/21 08:00 Orthostatic Blood Pressure [ 72/40 Standing] Orthostatic Blood Pressure [ 87/41 Sitting] Orthostatic Blood Pressure [ 82/49 Supine] Weight - Most Recent: 47.4 kg I&O - Last 24 hours: Intake & Output 07/05/21 07/06/21 07/06/21 22:59 06:59 14:59 Intake Total 940 220 Output Total 1385 Balance -445 220 Lab Results - Last 24 hrs: Laboratory Results - last 24 hr 07/06/21 07/06/21 Range/Units 05:26 05:26 WBC 8.48 (4.0-11.0) K/uL RBC 2.73 L (4.30-5.90) M/uL Hgb 8.5 L (12.0-16.0) g/dL Hct 25.5 L (36.0-46.0) % MCV 93.4 (80.0-98.0) fL MCH 31.1 (27.0-32.0) pg MCHC 33.3 (31.0-37.0) g/dL RDW Std Deviation 54.0 (28.0-62.0) fl RDW Coeff of Sofia 16 H (11.0-15.0) % Plt Count 147 L (150-400) K/uL MPV 10.10 (7.40-12.00) fL Neut % (Auto) 67.6 (48.0-80.0) % Lymph % (Auto) 23.3 (16.0-40.0) % Bonner % (Auto) 5.4 (0.0-15.0) % Eos % (Auto) 3.3 (0.0-7.0) % Baso % (Auto) 0.4 (0.0-1.5) % Neut # (Auto) 5.7 (1.4-5.7) K/uL Lymph # (Auto) 2.0 (0.6-2.4) K/uL Bonner # (Auto) 0.5 (0.0-0.8) K/uL Eos # (Auto) 0.3 (0.0-0.7) K/uL Baso # (Auto) 0.0 (0.0-0.1) K/uL Nucleated RBC % 0.0 /100WBC Nucleated RBCs # 0 K/uL Sodium 140 (136-145) mmol/L Potassium 3.7 (3.5-5.1) mmol/L Chloride 110 H (98-107) mmol/L Carbon Dioxide 16.6 L (21.0-32.0) mmol/L BUN 23 H (7.0-18.0) mg/dL Creatinine 1.1 H (0.6-1.0) mg/dL Est Cr Clr Drug Dosing 30.01 mL/min Estimated GFR (MDRD) 47.7 ml/min Glucose 82 (74-106) mg/dL Calcium 7.9 L (8.5-10.1) mg/dL DOROTHEA Results - Last 24 hrs: Microbiology 07/02/21 00:00 Urine Culture - Final Urine Serratia Marcescens 07/02/21 19:37 Aerobic Blood Culture - Preliminary Blood - Venous - Lab Draw NO GROWTH AFTER 3 DAYS Anaerobic Blood Culture - Final 07/02/21 19:15 Aerobic Blood Culture - Preliminary Blood - Venous NO GROWTH AFTER 3 DAYS Anaerobic Blood Culture - Preliminary NO GROWTH AFTER 3 DAYS Med Orders - Current: Current Medications Discontinued Medications Acetaminophen (Acetaminophen 325 Mg Tab) 650 mg PO Q4H PRN PRN Reason: Pain (Mild 1-3)/fever Last Admin: 07/06/21 02:26 Dose: 650 mg Documented by: Apixaban (Apixaban 5 Mg Tab) 5 mg PO BID [facility] Last Admin: 07/06/21 09:28 Dose: 5 mg Documented by: Dronabinol (Dronabinol 2.5 Mg Cap) 10 mg PO DAILY [facility] Last Admin: 07/04/21 11:24 Dose: Not Given Documented by: Dronabinol (Dronabinol 2.5 Mg Cap) 2.5 mg PO DAILY [facility] Last Admin: 07/06/21 08:31 Dose: 2.5 mg Documented by: Fluconazole (Fluconazole 150 Mg Tab) 150 mg PO ONETIME ONE Stop: 07/03/21 15:16 Last Admin: 07/03/21 15:54 Dose: 150 mg Documented by: Folic Acid (Folic Acid 1 Mg Tab) 1 mg PO DAILY [facility] Last Admin: 07/06/21 09:29 Dose: 1 mg Documented by: Sodium Chloride (Normal Saline) 1,000 mls @ 999 mls/hr IV .Bolus ONE Stop: 07/02/21 20:10 Last Admin: 07/02/21 19:30 Dose: 999 mls/hr Documented by: Lactated Ringer's (Ringers, Lactated) 1,000 mls @ 999 mls/hr IV .BOLUS VIRGEN Last Admin: 07/02/21 20:40 Dose: 999 mls/hr Documented by: Lactated Ringer's (Ringers, Lactated) 1,000 mls @ 999 mls/hr IV .BOLUS [facility] Last Admin: 07/02/21 22:36 Dose: 999 mls/hr Documented by: Ceftriaxone Sodium 1 gm/ (Sodium Chloride) 50 mls @ 100 mls/hr IV Q24H [facility] Last Admin: 07/03/21 08:09 Dose: Not Given Documented by: Sodium Chloride (Normal Saline) 1,000 mls @ 125 mls/hr IV ASDIRECTED [facility] Last Admin: 07/04/21 12:18 Dose: 125 mls/hr Documented by: Ceftriaxone Sodium/Dextrose (Rocephin In Dextrose,Iso-Osm 1 Gm/50 Ml) Confirm Administered Dose 50 mls @ as directed .ROUTE .STK-MED ONE Stop: 07/03/21 01:10 Last Admin: 07/03/21 08:08 Dose: Not Given Documented by: Ceftriaxone Sodium/Dextrose (Rocephin In Dextrose,Iso-Osm 1 Gm/50 Ml) 50 mls @ 50 mls/hr IV Q24H [facility] Last Admin: 07/06/21 02:17 Dose: 50 mls/hr Documented by: Influenza Virus Vaccine (Pharmacy To Dose - Influenza Vaccine) 1 each IM ONETIME ONE Stop: 07/03/21 00:21 Influenza Virus Vaccine (Flu Vacc [id number](65yr Up)/Pf 240 Mcg/0.7 Ml Syringe) 240 mcg IM .ONCE ONE Stop: 07/03/21 10:01 Ketorolac Tromethamine (Ketorolac 15 Mg/Ml Sdv) 15 mg IVPUSH ONETIME ONE Stop: 07/04/21 18:35 Last Admin: 07/04/21 18:41 Dose: 15 mg Documented by: Levothyroxine Sodium (Levothyroxine 75 Mcg Tab) 75 mcg PO DAILY [facility] Levothyroxine Sodium (Levothyroxine 75 Mcg Tab) 75 mcg PO ACBREAKFAST [facility] Last Admin: 07/06/21 08:26 Dose: 75 mcg Documented by: Lidocaine/Prilocaine (Lidocaine/Prilocaine 2.5-2.5% Crm 5 Gm Tube) 1 gm TOP ONETIME ONE Stop: 07/04/21 18:06 Last Admin: 07/04/21 18:45 Dose: 1 applic Documented by: Loperamide HCl (Loperamide 2 Mg Cap) 2 mg PO Q6H PRN PRN Reason: Diarrhea Loperamide HCl (Loperamide 2 Mg Cap) 2 mg PO Q12HR [facility] Last Admin: 07/06/21 08:31 Dose: 2 mg Documented by: Melatonin (Melatonin 3 Mg Tab) 9 mg PO BEDTIME [facility] Last Admin: 07/04/21 20:35 Dose: 9 mg Documented by: Midodrine (Midodrine 5 Mg Tab) 2.5 mg PO TIDAC [facility] Last Admin: 07/06/21 11:24 Dose: 2.5 mg Documented by: Mirtazapine (Mirtazapine 15 Mg Tab) 45 mg PO BEDTIME [facility] Last Admin: 07/05/21 21:00 Dose: Not Given Documented by: Morphine Sulfate (Morphine 4 Mg/Ml Syringe) 2 mg IVPUSH ONETIME ONE Stop: 07/02/21 22:22 Last Admin: 07/02/21 22:43 Dose: Not Given Documented by: Ondansetron HCl (Ondansetron 4 Mg/2 Ml Sdv) 4 mg IVPUSH ONETIME ONE Stop: 07/02/21 19:44 Last Admin: 07/02/21 20:40 Dose: 4 mg Documented by: Ondansetron HCl (Ondansetron 4 Mg/2 Ml Sdv) 4 mg IVPUSH Q4H PRN PRN Reason: Nausea/Vomiting Last Admin: 07/03/21 17:37 Dose: 4 mg Documented by: Oxycodone/Acetaminophen (Acetaminophen/Oxycodone 325-10 Mg Tab) 1 tab PO Q6H PRN PRN Reason: Pain Last Admin: 07/06/21 06:10 Dose: 1 tab Documented by: Dronabinol 10 Mg Cap 1 each PO DAILY [facility] Last Admin: 07/04/21 09:30 Dose: 1 each Documented by: Mirtazipine 45 Mg (Tablet) 1 each PO BEDTIME [facility] Last Admin: 07/05/21 20:27 Dose: 1 each Documented by: Melatonin 5 Mg (Tablet) 1 each PO BEDTIME [facility] Last Admin: 07/05/21 20:28 Dose: 1 each Documented by: Potassium Chloride (Potassium Chloride 20 Meq Tab.Er) 20 meq PO ONETIME ONE Stop: 07/03/21 13:01 Last Admin: 07/03/21 13:17 Dose: 20 meq Documented by: Potassium Chloride (Potassium Chloride 20 Meq Tab.Er) 40 meq PO ONETIME ONE Stop: 07/04/21 08:46 Last Admin: 07/04/21 09:44 Dose: 40 meq Documented by: Rosuvastatin Calcium (Rosuvastatin 10 Mg Tab) 20 mg PO DAILY [facility] Last Admin: 07/06/21 09:28 Dose: 20 mg Documented by: Sertraline HCl (Sertraline 100 Mg Tab) 100 mg PO DAILY [facility] Last Admin: 07/06/21 09:28 Dose: 100 mg Documented by: Sodium Chloride (Sodium Chloride 0.9% 10 Ml Syringe) 10 ml FLUSH ASDIRECTED PRN PRN Reason: Keep Vein Open Last Admin: 07/02/21 20:41 Dose: 10 ml Documented by: Sodium Chloride (Sodium Chloride 0.9% 2.5 Ml Syringe) 2.5 ml FLUSH ASDIRECTED PRN PRN Reason: Keep Vein Open Last Admin: 07/02/21 20:41 Dose: 2.5 ml Documented by: - Exam General: Reports: Alert, Oriented Lungs: Reports: Clear to Auscultation, Normal Respiratory Effort Cardiovascular: Reports: Regular Rate GI/Abdominal Exam: Soft, Non-Tender, No Distention, Distended. No: Guarding Psy/Mental Status: Reports: Anxious <Luis,Hooria - Last Filed: 07/07/21 15:33> Discharge Summary - Hospital Course Free Text/Narrative:: I have seen and evaluated the patient and agree with the residents note unless specified in my note - Referral to Home Health Primary Care Physician: Bridger Law MD - Patient Summary/Data Consults: Consultations 07/03/21 00:41 PT Evaluation and Treatment [CONS] Routine 07/04/21 10:35 Consult to Physician [CONS] Routine 07/05/21 14:31 Consult to Home Health [CONS] Routine - Patient Data Vitals - Most Recent: Last Vital Signs Temp 37.3 C 07/06/21 08:00 Pulse 75 07/06/21 08:00 Resp 22 H 07/06/21 08:00 BP 90/47 L 07/06/21 08:00 Pulse Ox 94 L 07/06/21 08:00 Orthostatic Blood Pressure [ 72/40 Standing] Orthostatic Blood Pressure [ 87/41 Sitting] Orthostatic Blood Pressure [ 82/49 Supine] DOROTHEA Results - Last 24 hrs: Microbiology 07/02/21 19:37 Aerobic Blood Culture - Preliminary Blood - Venous - Lab Draw NO GROWTH AFTER 4 DAYS Anaerobic Blood Culture - Final 07/02/21 19:15 Aerobic Blood Culture - Preliminary Blood - Venous NO GROWTH AFTER 4 DAYS Anaerobic Blood Culture - Preliminary NO GROWTH AFTER 4 DAYS 07/02/21 00:00 Urine Culture - Final Urine Serratia Marcescens Med Orders - Current: Current Medications Discontinued Medications Acetaminophen (Acetaminophen 325 Mg Tab) 650 mg PO Q4H PRN PRN Reason: Pain (Mild 1-3)/fever Last Admin: 07/06/21 02:26 Dose: 650 mg Documented by: Apixaban (Apixaban 5 Mg Tab) 5 mg PO BID [facility] Last Admin: 07/06/21 09:28 Dose: 5 mg Documented by: Dronabinol (Dronabinol 2.5 Mg Cap) 10 mg PO DAILY [facility] Last Admin: 07/04/21 11:24 Dose: Not Given Documented by: Dronabinol (Dronabinol 2.5 Mg Cap) 2.5 mg PO DAILY [facility] Last Admin: 07/06/21 08:31 Dose: 2.5 mg Documented by: Fluconazole (Fluconazole 150 Mg Tab) 150 mg PO ONETIME ONE Stop: 07/03/21 15:16 Last Admin: 07/03/21 15:54 Dose: 150 mg Documented by: Folic Acid (Folic Acid 1 Mg Tab) 1 mg PO DAILY [facility] Last Admin: 07/06/21 09:29 Dose: 1 mg Documented by: Sodium Chloride (Normal Saline) 1,000 mls @ 999 mls/hr IV .Bolus ONE Stop: 07/02/21 20:10 Last Admin: 07/02/21 19:30 Dose: 999 mls/hr Documented by: Lactated Ringer's (Ringers, Lactated) 1,000 mls @ 999 mls/hr IV .BOLUS [facility] Last Admin: 07/02/21 20:40 Dose: 999 mls/hr Documented by: Lactated Ringer's (Ringers, Lactated) 1,000 mls @ 999 mls/hr IV .BOLUS [facility] Last Admin: 07/02/21 22:36 Dose: 999 mls/hr Documented by: Ceftriaxone Sodium 1 gm/ (Sodium Chloride) 50 mls @ 100 mls/hr IV Q24H [facility] Last Admin: 07/03/21 08:09 Dose: Not Given Documented by: Sodium Chloride (Normal Saline) 1,000 mls @ 125 mls/hr IV ASDIRECTED [facility] Last Admin: 07/04/21 12:18 Dose: 125 mls/hr Documented by: Ceftriaxone Sodium/Dextrose (Rocephin In Dextrose,Iso-Osm 1 Gm/50 Ml) Confirm Administered Dose 50 mls @ as directed .ROUTE .K-MED ONE Stop: 07/03/21 01:10 Last Admin: 07/03/21 08:08 Dose: Not Given Documented by: Ceftriaxone Sodium/Dextrose (Rocephin In Dextrose,Iso-Osm 1 Gm/50 Ml) 50 mls @ 50 mls/hr IV Q24H [facility] Last Admin: 07/06/21 02:17 Dose: 50 mls/hr Documented by: Influenza Virus Vaccine (Pharmacy To Dose - Influenza Vaccine) 1 each IM ONETIME ONE Stop: 07/03/21 00:21 Influenza Virus Vaccine (Flu Vacc [id number](65yr Up)/Pf 240 Mcg/0.7 Ml Syringe) 240 mcg IM .ONCE ONE Stop: 07/03/21 10:01 Ketorolac Tromethamine (Ketorolac 15 Mg/Ml Sdv) 15 mg IVPUSH ONETIME ONE Stop: 07/04/21 18:35 Last Admin: 07/04/21 18:41 Dose: 15 mg Documented by: Levothyroxine Sodium (Levothyroxine 75 Mcg Tab) 75 mcg PO DAILY [facility] Levothyroxine Sodium (Levothyroxine 75 Mcg Tab) 75 mcg PO ACBREAKFAST [facility] Last Admin: 07/06/21 08:26 Dose: 75 mcg Documented by: Lidocaine/Prilocaine (Lidocaine/Prilocaine 2.5-2.5% Crm 5 Gm Tube) 1 gm TOP ONETIME ONE Stop: 07/04/21 18:06 Last Admin: 07/04/21 18:45 Dose: 1 applic Documented by: Loperamide HCl (Loperamide 2 Mg Cap) 2 mg PO Q6H PRN PRN Reason: Diarrhea Loperamide HCl (Loperamide 2 Mg Cap) 2 mg PO Q12HR [facility] Last Admin: 07/06/21 08:31 Dose: 2 mg Documented by: Melatonin (Melatonin 3 Mg Tab) 9 mg PO BEDTIME [facility] Last Admin: 07/04/21 20:35 Dose: 9 mg Documented by: Midodrine (Midodrine 5 Mg Tab) 2.5 mg PO TIDAC [facility] Last Admin: 07/06/21 11:24 Dose: 2.5 mg Documented by: Mirtazapine (Mirtazapine 15 Mg Tab) 45 mg PO BEDTIME [facility] Last Admin: 07/05/21 21:00 Dose: Not Given Documented by: Morphine Sulfate (Morphine 4 Mg/Ml Syringe) 2 mg IVPUSH ONETIME ONE Stop: 07/02/21 22:22 Last Admin: 07/02/21 22:43 Dose: Not Given Documented by: Ondansetron HCl (Ondansetron 4 Mg/2 Ml Sdv) 4 mg IVPUSH ONETIME ONE Stop: 07/02/21 19:44 Last Admin: 07/02/21 20:40 Dose: 4 mg Documented by: Ondansetron HCl (Ondansetron 4 Mg/2 Ml Sdv) 4 mg IVPUSH Q4H PRN PRN Reason: Nausea/Vomiting Last Admin: 07/03/21 17:37 Dose: 4 mg Documented by: Oxycodone/Acetaminophen (Acetaminophen/Oxycodone 325-10 Mg Tab) 1 tab PO Q6H PRN PRN Reason: Pain Last Admin: 07/06/21 06:10 Dose: 1 tab Documented by: Dronabinol 10 Mg Cap 1 each PO DAILY [facility] Last Admin: 07/04/21 09:30 Dose: 1 each Documented by: Mirtazipine 45 Mg (Tablet) 1 each PO BEDTIME [facility] Last Admin: 07/05/21 20:27 Dose: 1 each Documented by: Melatonin 5 Mg (Tablet) 1 each PO BEDTIME [facility] Last Admin: 07/05/21 20:28 Dose: 1 each Documented by: Potassium Chloride (Potassium Chloride 20 Meq Tab.Er) 20 meq PO ONETIME ONE Stop: 07/03/21 13:01 Last Admin: 07/03/21 13:17 Dose: 20 meq Documented by: Potassium Chloride (Potassium Chloride 20 Meq Tab.Er) 40 meq PO ONETIME ONE Stop: 07/04/21 08:46 Last Admin: 07/04/21 09:44 Dose: 40 meq Documented by: Rosuvastatin Calcium (Rosuvastatin 10 Mg Tab) 20 mg PO DAILY [facility] Last Admin: 07/06/21 09:28 Dose: 20 mg Documented by: Sertraline HCl (Sertraline 100 Mg Tab) 100 mg PO DAILY [facility] Last Admin: 07/06/21 09:28 Dose: 100 mg Documented by: Sodium Chloride (Sodium Chloride 0.9% 10 Ml Syringe) 10 ml FLUSH ASDIRECTED PRN PRN Reason: Keep Vein Open Last Admin: 07/02/21 20:41 Dose: 10 ml Documented by: Sodium Chloride (Sodium Chloride 0.9% 2.5 Ml Syringe) 2.5 ml FLUSH ASDIRECTED PRN PRN Reason: Keep Vein Open Last Admin: 07/02/21 20:41 Dose: 2.5 ml Documented by:
== END 2021-07-06 12:45 | disposition home health service (06) | DRG 760 ==
LOC: MW.ED 18:27 → MW.MS 22:22 → OBSVTOIN 07-03 00:41
PROVIDERS: ADMIT Internal Medicine; ATTEND Internal Medicine
PROC: [UNRECOGNIZED PROCEDURE] (principal; 2021-07-03)
DX: N81.4 Uterovaginal prolapse, unspecified (principal); N39.0 Urinary tract infection, site not specified; K91.2 Postsurgical malabsorption, not elsewhere classified; E86.0 Dehydration; I95.9 Hypotension, unspecified; I10 Essential (primary) hypertension; M19.90 Unspecified osteoarthritis, unspecified site; G89.29 Other chronic pain; Z93.2 Ileostomy status; M54.9 Dorsalgia, unspecified; F41.9 Anxiety disorder, unspecified; F32.9 Major depressive disorder, single episode, unspecified; E03.9 Hypothyroidism, unspecified; Z86.718 Personal history of other venous thrombosis and embolism; E78.00 Pure hypercholesterolemia, unspecified; G43.909 Migraine, unspecified, not intractable, without status migrainosus; M81.0 Age-related osteoporosis without current pathological fracture; Z96.652 Presence of left artificial knee joint; Z90.49 Acquired absence of other specified parts of digestive tract; Z79.01 Long term (current) use of anticoagulants; Z79.899 Other long term (current) drug therapy; Z79.890 Hormone replacement therapy; Z98.890 Other specified postprocedural states; Z86.711 Personal history of pulmonary embolism; Z87.891 Personal history of nicotine dependence; Z20.822 Contact with and (suspected) exposure to COVID-19
CPT/HCPCS: 36415; 70450; 71045; 74176; 80053; 81001; 83605; 83690; 83735; 85025; 87040 ×2; 87086; 87088; 87186; 93005; 96374; 99285; J2405; J7030; J7120 ×2; U0002; 51798; 80048; 82272; 82306; 82607; 82728; 82746; 83550; 84100; 84439; 84443; 87480; 87510; 87660; 97110-GP; 97162-GP; 97530-GP; A9270-GY; G0378; J0696; J1885; Q0167

== ENCOUNTER 2021-07-17 09:19 | Observation (INO) | payer MEDICARE, BC ==
--- NOTE | 2021-07-17 09:51 | EDM.PDOC ---
ED HPI GENERAL MEDICAL PROBLEM - General Chief Complaint: General Stated Complaint: DEHYDRATED RENAL FAILURE Time Seen by Provider: 07/17/21 09:37 - History of Present Illness INITIAL COMMENTS - FREE TEXT/NARRATIVE: CHIEF COMPLAINT(S): Weakness HISTORY OF PRESENT ILLNESS: This is a 80-year-old woman with a past medical history of volvulus status post partial colectomy a couple of months ago and recent admission for dehydration, acute kidney injury and decreased p.o. intake who comes to the emergency department with a chief complaint of weakness. The patient states that she was sent in from the clinic because her kidney function had worsened. She states that she feels weak and tired and this has been going on for quite some time. She denies any chest pain, shortness of breath, abdominal pain, nausea or vomiting. She denies any recent travel or surgery. She denies any history of DVT or PE. Per the daughter Shelbie the patient has had weight loss since her volvulus when she weighed approximately 145 pounds and because of that she is experiencing nausea and does not want to eat as much. REVIEW OF SYSTEMS: Constitutional: Positive for weakness. Denies fever, chills. Eyes: Denies eye pain Ears, Nose, Mouth, & Throat: Denies earache Cardiovascular: Denies chest pain Respiratory: Denies shortness of breath Gastrointestinal: Positive for nausea. Denies vomiting, diarrhea, medic easier, hematemesis, bilious emesis, melena. Genitourinary: Denies hematuria Skin:Denies a rash MSK: Denies joint pain Neurological: Denies blurred vision, numbness, tingling psychiatric: Denies depression PAST MEDICAL HISTORY: As per history of present illness and as reviewed below otherwise noncontributory. SURGICAL HISTORY: As per history of present illness and as reviewed below otherwise noncontributory. SOCIAL HISTORY: As per history of present illness and as reviewed below otherwise noncontributory. FAMILY HISTORY: As per history of present illness and as reviewed below otherwise noncontributory. EXAMINATION OF ORGAN SYSTEMS/BODY AREAS: Constitutional: Blood pressure is 111/63, heart rate 70, respiratory rate 16 with an oxygen saturation 98% on room air. Temperature 36.6 General: Cachectic appearing woman who is in no acute distress Psychiatric: Appropriate mood and affect. Eyes: No scleral icterus or conjunctival erythema ENMT: Dry mucous membranes. No pharyngeal erythema. No tonsillar exudates or swelling. No stridor, drooling, trismus. Cardiovascular: Regular, rate, and rhythm. No gallops, murmurs, or rubs. Bilateral upper extremity pulses symmetric and intact. No peripheral edema. No JVD. Respiratory: Lungs clear to auscultation bilaterally. No wheezes, rales, or rhonchi. Gastrointestinal: Soft, non-tender, non-distended. Normoactive bowel sounds Genitourinary: No suprapubic tenderness Musculoskeletal: Normal range of motion. Skin: No lesions or abrasions. Neurological: Alert, GCS 15 MEDICAL DECISION MAKING AND COURSE IN THE ED WITH INTERPRETATION/REVIEW OF DIAGNOSTIC STUDIES: This is a 80-year-old woman with a complex past medical history who comes to the emergency department with weakness and reported acute kidney injury. The patient's vitals appear to be stable at this time. This time will obtain labs including CBC, CMP, troponin. Will obtain Covid swabs and urine studies. We will provide the patient with 1 L of lactated Ringer's bolus and start the patient on maintenance fluids. Laboratory: CBC reveals a normocytic anemia with a hemoglobin of 9.5 and hematocrit of 28.9 which is unchanged from yesterday and was increased from 10/25/2020. CMP reveals metabolic acidosis with bicarbonate 15.6, acute kidney injury with a BUN of 45 and a creatinine of 2.0 which is up from prior at 23 and 1.1. Otherwise unremarkable. Troponin is negative. Urinalysis was a clean catch and was reveals trace hematuria with trace protein otherwise negative. Covid is negative. At this time I did discuss with patient that I would like to place a Beltran catheter to measure urinary output. At bedside the patient only had 150 cc of urine in her bladder. She was amenable to this plan. I did discuss admission for rehydration and acute kidney injury. She was amenable to this plan. I contacted Dr. Pierson for admission and he was amenable to admission at this time. The patient is on midodrine for hypotension. On reevaluation her blood pressure was borderline therefore I did provide her her midday dose of midodrine. DISPOSITION: Patient is admitted to the hospital in stable condition CONDITION: Fair PROCEDURES: None FINAL IMPRESSION(S)/DIAGNOSES: 1. Acute kidney injury Jose Robertson M.D. - Related Data Allergies Allergy/AdvReac Type Severity Reaction Status Date / Time No Known Allergies Allergy Verified 07/17/21 10:00 Home Meds: Home Meds Melatonin 1 tab PO BEDTIME 07/02/21 [History] Ondansetron [Zofran ODT] 1 tab PO DAILY PRN 07/02/21 [History] Rosuvastatin [Crestor] 20 mg PO DAILY 07/02/21 [History] Sertraline [Zoloft] 100 mg PO DAILY 07/02/21 [History] LORazepam [Ativan] 2 mg PO BEDTIME PRN 07/03/21 [History] Levothyroxine 75 mcg PO ACBREAKFAST 07/03/21 [History] Cefdinir [Omnicef] 300 mg PO BID #6 cap 07/06/21 [Rx] Folic Acid 1 mg PO DAILY #14 tablet 07/06/21 [Rx] Midodrine 2.5 mg PO TIDAC #63 tablet 07/06/21 [Rx] Rivaroxaban [Xarelto] 10 mg PO DAILY #14 tab 07/06/21 [Rx] dronabinoL [Dronabinol] 2.5 mg PO DAILY #16 capsule 07/06/21 [Rx] Mirtazapine [Remeron] 15 mg PO BEDTIME 07/17/21 [History] Past Medical History HEENT History: Reports: None Cardiovascular History: Reports: Blood Clots/VTE/DVT Gastrointestinal History: Reports: Bowel Obstruction Genitourinary History: Reports: Other (See Below) Other Genitourinary History: 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 [employer]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 [employer]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 History: Reports: Musculoskeletal History: Reports: Arthritis, Back Pain, Chronic Psychiatric History: Reports: Anxiety, Depression Endocrine/Metabolic History: Reports: Hypothyroidism - Infectious Disease History Infectious Disease History: Reports: Chicken Pox - Past Surgical History HEENT Surgical History: Reports: None Cardiovascular Surgical History: Reports: None GI Surgical History: Reports: Cholecystectomy, Other (See Below) Other GI Surgeries/Procedures: Hemicolectomy and ileostomy Female Surgical History: Reports: None Musculoskeletal Surgical History: Reports: Shoulder Surgery Social & Family History - Family History Family Medical History: No Pertinent Family History - Caffeine Use Caffeine Use: Reports: None ED ROS GENERAL - Review of Systems Review Of Systems: See Below ED EXAM, GENERAL - Physical Exam Exam: See Below Course - Vital Signs Last Recorded V/S: Last Vital Signs Temp 36.6 C 07/17/21 09:57 Pulse 72 07/17/21 14:30 Resp 16 07/17/21 13:53 BP 94/53 L 07/17/21 14:30 Pulse Ox 95 07/17/21 14:30 - Orders/Labs/Meds Orders: Active Orders 24 hr Category Date Time Status Bladder Scan [RC] ONETIME Care 07/17/21 09:50 Active CHLORIDE,URINE RANDOM [URCHEM] Stat Lab 07/17/21 10:42 Ordered CREATININE,URINE RAND [URCHEM] Stat Lab 07/17/21 10:42 Ordered OSMOLALITY - SERUM [REF] Stat Lab 07/17/21 09:55 Received OSMOLALITY - URINE Stat Lab 07/17/21 10:42 Ordered PROTEIN,URINE RANDOM [URCHEM] Stat Lab 07/17/21 10:42 Ordered SODIUM,URINE RANDOM [URCHEM] Stat Lab 07/17/21 10:42 Ordered Lactated Ringers [Ringers, Lactated] 1,000 ml Med 07/17/21 10:45 Active IV ASDIRECTED Lactated Ringers [Ringers, Lactated] 1,000 ml Med 07/17/21 10:45 Active IV ASDIRECTED Medication Orders Acetaminophen (Acetaminophen 325 Mg Tab) 650 mg PO Q4H PRN PRN Reason: Pain (Mild 1-3)/fever Dronabinol (Dronabinol 2.5 Mg Cap) 2.5 mg PO DAILY [facility]IRGEN Lactated Ringer's (Ringers, Lactated) 1,000 mls @ 999 mls/hr IV ASDIRECTED VIRGEN Last Admin: 07/17/21 11:02 Dose: 999 mls/hr Documented by: RADHA Lactated Ringer's (Ringers, Lactated) 1,000 mls @ 85 mls/hr IV ASDIRECTED VIRGEN Last Admin: 07/17/21 12:23 Dose: 85 mls/hr Documented by: RADHA Levothyroxine Sodium (Levothyroxine 75 Mcg Tab) 75 mcg PO ACBREAKFAST VIRGEN Last Admin: 07/17/21 16:49 Dose: Not Given Documented by: CHAZ Midodrine (Midodrine 5 Mg Tab) 2.5 mg PO TIDAC [facility] [place] Mirtazapine (Mirtazapine 15 Mg Tab) 15 mg PO BEDTIME [facility] [place] Ondansetron HCl (Ondansetron 4 Mg/2 Ml Sdv) 4 mg IVPUSH Q4H PRN PRN Reason: Nausea/Vomiting Rivaroxaban (Rivaroxaban 10 Mg Tab) 10 mg PO DAILY [facility] [place] Last Admin: 07/17/21 16:29 Dose: 10 mg Documented by: CHAZ Sertraline HCl (Sertraline 100 Mg Tab) 100 mg PO DAILY [facility] [place] Labs: Laboratory Tests 07/17/21 07/17/21 07/17/21 Range/Units 09:55 09:55 10:09 WBC 5.84 (4.0-11.0) K/uL RBC 3.03 L (4.30-5.90) M/uL Hgb 9.5 L (12.0-16.0) g/dL Hct 28.9 L (36.0-46.0) % MCV 95.4 (80.0-98.0) fL MCH 31.4 (27.0-32.0) pg MCHC 32.9 (31.0-37.0) g/dL RDW Std Deviation 48.2 (28.0-62.0) fl RDW Coeff of Sofia 15 (11.0-15.0) % Plt Count 220 (150-400) K/uL MPV 9.70 (7.40-12.00) fL Neut % (Auto) 66.1 (48.0-80.0) % Lymph % (Auto) 26.5 (16.0-40.0) % [place] % (Auto) 6.2 (0.0-15.0) % Eos % (Auto) 1.0 (0.0-7.0) % Baso % (Auto) 0.2 (0.0-1.5) % Neut # (Auto) 3.9 (1.4-5.7) K/uL Lymph # (Auto) 1.6 (0.6-2.4) K/uL [place] # (Auto) 0.4 (0.0-0.8) K/uL Eos # (Auto) 0.1 (0.0-0.7) K/uL Baso # (Auto) 0.0 (0.0-0.1) K/uL Sodium 137 (136-145) mmol/L Potassium 3.8 (3.5-5.1) mmol/L Chloride 106 (98-107) mmol/L Carbon Dioxide 15.6 L (21.0-32.0) mmol/L BUN 45 H (7.0-18.0) mg/dL Creatinine 2.0 H (0.6-1.0) mg/dL Est Cr Clr Drug Dosing 14.38 mL/min Estimated GFR (MDRD) 23.9 ml/min Glucose 109 H (74-106) mg/dL Calcium 8.1 L (8.5-10.1) mg/dL Total Bilirubin 0.4 (0.2-1.0) mg/dL AST 33 (15-37) IU/L ALT 51 (14-63) IU/L Alkaline Phosphatase 96 (46-116) U/L Troponin I < 0.050 (0.000-0.056) ng/mL Total Protein 6.7 (6.4-8.2) g/dL Albumin 3.5 (3.4-5.0) g/dL Globulin 3.2 (2.6-4.0) g/dL Albumin/Globulin Ratio 1.1 (0.9-1.6) Urine Color Urine Appearance Urine pH (5.0-8.0) Ur Specific [place] (1.001-1.035) Urine Protein (NEGATIVE) mg/dL Urine Glucose (UA) (NEGATIVE) mg/dL Urine Ketones (NEGATIVE) mg/dL Urine Occult Blood (NEGATIVE) Urine Nitrite (NEGATIVE) Urine Bilirubin (NEGATIVE) Urine Urobilinogen (<2.0) EU/dL Ur Leukocyte Esterase (NEGATIVE) Urine RBC (0-2/HPF) Urine WBC (0-5/HPF) Ur Epithelial Cells (NONE-FEW) Urine Bacteria (NEGATIVE) SARS-CoV-2 RNA (BEAU) NEGATIVE (NEGATIVE) 07/17/21 Range/Units 12:13 WBC (4.0-11.0) K/uL RBC (4.30-5.90) M/uL Hgb (12.0-16.0) g/dL Hct (36.0-46.0) % MCV (80.0-98.0) fL MCH (27.0-32.0) pg MCHC (31.0-37.0) g/dL RDW Std Deviation (28.0-62.0) fl RDW Coeff of Sofia (11.0-15.0) % Plt Count (150-400) K/uL MPV (7.40-12.00) fL Neut % (Auto) (48.0-80.0) % Lymph % (Auto) (16.0-40.0) % [place] % (Auto) (0.0-15.0) % Eos % (Auto) (0.0-7.0) % Baso % (Auto) (0.0-1.5) % Neut # (Auto) (1.4-5.7) K/uL Lymph # (Auto) (0.6-2.4) K/uL [place] # (Auto) (0.0-0.8) K/uL Eos # (Auto) (0.0-0.7) K/uL Baso # (Auto) (0.0-0.1) K/uL Sodium (136-145) mmol/L Potassium (3.5-5.1) mmol/L Chloride (98-107) mmol/L Carbon Dioxide (21.0-32.0) mmol/L BUN (7.0-18.0) mg/dL Creatinine (0.6-1.0) mg/dL Est Cr Clr Drug Dosing mL/min Estimated GFR (MDRD) ml/min Glucose (74-106) mg/dL Calcium (8.5-10.1) mg/dL Total Bilirubin (0.2-1.0) mg/dL AST (15-37) IU/L ALT (14-63) IU/L Alkaline Phosphatase (46-116) U/L Troponin I (0.000-0.056) ng/mL Total Protein (6.4-8.2) g/dL Albumin (3.4-5.0) g/dL Globulin (2.6-4.0) g/dL Albumin/Globulin Ratio (0.9-1.6) Urine Color YELLOW Urine Appearance HAZY Urine pH 5.5 (5.0-8.0) Ur Specific [place] 1.020 (1.001-1.035) Urine Protein TRACE H (NEGATIVE) mg/dL Urine Glucose (UA) NEGATIVE (NEGATIVE) mg/dL Urine Ketones NEGATIVE (NEGATIVE) mg/dL Urine Occult Blood TRACE-INTACT H (NEGATIVE) Urine Nitrite NEGATIVE (NEGATIVE) Urine Bilirubin NEGATIVE (NEGATIVE) Urine Urobilinogen 0.2 (<2.0) EU/dL Ur Leukocyte Esterase NEGATIVE (NEGATIVE) Urine RBC 0-1 (0-2/HPF) Urine WBC 0-1 (0-5/HPF) Ur Epithelial Cells RARE (NONE-FEW) Urine Bacteria RARE (NEGATIVE) SARS-CoV-2 RNA (BEAU) (NEGATIVE) Meds: Medications Generic Name Dose Route Start Last Admin Trade Name Oral PRN Reason Stop Dose Admin Acetaminophen 650 mg 07/17/21 15:10 Acetaminophen 325 Mg Tab PO Q4H PRN Pain (Mild 1-3)/fever Dronabinol 2.5 mg 07/17/21 16:00 Dronabinol 2.5 Mg Cap PO DAILY VIRGEN Lactated Ringer's 1,000 mls @ 999 mls/hr 07/17/21 10:45 07/17/21 11:02 Ringers, Lactated IV 999 mls/hr ASDIRECTED VIRGEN Administration Lactated Ringer's 1,000 mls @ 85 mls/hr 07/17/21 10:45 07/17/21 12:23 Ringers, Lactated IV 85 mls/hr ASDIRECTED VIRGEN Administration Levothyroxine Sodium 75 mcg 07/17/21 16:00 07/17/21 16:49 Levothyroxine 75 Mcg Tab PO Not Given ACBREAKFAST VIRGEN Midodrine 2.5 mg 07/17/21 17:00 Midodrine 5 Mg Tab PO TIDAC VIRGEN Mirtazapine 15 mg 07/17/21 21:00 Mirtazapine 15 Mg Tab PO BEDTIME VIRGEN Ondansetron HCl 4 mg 07/17/21 15:10 Ondansetron 4 Mg/2 Ml Sdv IVPUSH Q4H PRN Nausea/Vomiting Rivaroxaban 10 mg 07/17/21 16:00 07/17/21 16:29 Rivaroxaban 10 Mg Tab PO 10 mg DAILY VIRGEN Administration Sertraline HCl 100 mg 07/18/21 09:00 Sertraline 100 Mg Tab PO DAILY VIRGEN Discontinued Medications Generic Name Dose Route Start Last Admin Trade Name Oral PRN Reason Stop Dose Admin Midodrine 2.5 mg 07/17/21 13:17 07/17/21 13:47 Midodrine 5 Mg Tab PO 07/17/21 13:18 2.5 mg TIDAC STA Administration Departure - Departure Time of Disposition: 13:28 Disposition: Admitted As Inpatient 65 Condition: Fair Clinical Impression: Acute kidney injury - Discharge Information Sepsis Event Note (ED) - Focused Exam Vital Signs: Vital Signs Temp Pulse Resp BP Pulse Ox 07/17/21 13:00 73 16 94/49 L 98 07/17/21 12:25 68 98/55 L 99 07/17/21 11:45 74 97/54 L 07/17/21 09:57 36.6 C 70 16 111/63 98 - My Orders Last 24 Hours: My Active Orders 07/17/21 09:50 Bladder Scan [RC] ONETIME 07/17/21 09:55 OSMOLALITY - SERUM [REF] Stat 07/17/21 10:42 CHLORIDE,URINE RANDOM [URCHEM] Stat CREATININE,URINE RAND [URCHEM] Stat OSMOLALITY - URINE Stat PROTEIN,URINE RANDOM [URCHEM] Stat SODIUM,URINE RANDOM [URCHEM] Stat 07/17/21 10:45 Lactated Ringers [Ringers, Lactated] 1,000 ml IV ASDIRECTED Lactated Ringers [Ringers, Lactated] 1,000 ml IV ASDIRECTED - Assessment/Plan Last 24 Hours: My Active Orders 07/17/21 09:50 Bladder Scan [RC] ONETIME 07/17/21 09:55 OSMOLALITY - SERUM [REF] Stat 07/17/21 10:42 CHLORIDE,URINE RANDOM [URCHEM] Stat CREATININE,URINE RAND [URCHEM] Stat OSMOLALITY - URINE Stat PROTEIN,URINE RANDOM [URCHEM] Stat SODIUM,URINE RANDOM [URCHEM] Stat 07/17/21 10:45 Lactated Ringers [Ringers, Lactated] 1,000 ml IV ASDIRECTED Lactated Ringers [Ringers, Lactated] 1,000 ml IV ASDIRECTED
--- NOTE | 2021-07-17 09:52 | PCM.EKG ---
#1 Interpretation EKG Date: 07/17/21 Time: 09:32 Rhythm: NSR Rate (Beats/Min): 74 [place]: Normal P-Wave: Present QRS: Normal ST-T: Normal QT: Normal Comparison: No Change (07/02/21) EKG Interpretation Comments: Sinus Rhythm
[2021-07-17 10:38] LABS: BLOOD UREA NITROGEN,BUN 45 mg/dL (7.0-18.0); CARBON DIOXIDE,CO2 15.6 mmol/L (21.0-32.0); CHLORIDE,CL 106 mmol/L (98-107); GLUCOSE RANDOM 109 mg/dL (74-106); POTASSIUM,K 3.8 mmol/L (3.5-5.1); SODIUM,NA 137 mmol/L (136-145)
[2021-07-17] MEDS ORDERED: Lactated Ringers 1,000 ML IV SCH (10:45)
[2021-07-17] MEDS: Lactated Ringers 1,000 ML IV SCH (12:23)
[2021-07-17] MEDS ORDERED: Midodrine 5 MG Tab PO STA (13:17)
[2021-07-17] MEDS ORDERED: Ondansetron 4 MG/2 ML SDV IVPUSH PRN (15:10)
[2021-07-17] MEDS ORDERED: Acetaminophen 325 MG Tab PO PRN (15:10)
[2021-07-17] MEDS ORDERED: Rivaroxaban 10 MG Tab PO SCH (16:00)
--- NOTE | 2021-07-17 16:18 | PCM.HP.2 ---
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 Patient was seen in clinic this morning and sent to the ED due to fatigue and worsening kidney functions on lab work. At admission patient states fatigue, generalized weakness. Patient states she has been eating well, drinking appropriately but further questioning with patient's daughter she states that patient does not drink enough fluids. Patient states eating appropriately, denies chest pain, shortness of breath, dizziness, headaches. White blood cell 5.4, hemoglobin 9.5, hematocrit 29.8, platelet 220, sodium 137, potassium 3.8, BUN 45, creatinine 2.0 urinalysis negative - Related Data Allergies/Adverse Reactions: Allergies Allergy/AdvReac Type Severity Reaction Status Date / Time No Known Allergies Allergy Verified 07/17/21 10:00 Home Medications: Home Meds Melatonin 1 tab PO BEDTIME 07/02/21 [History] Ondansetron [Zofran ODT] 1 tab PO DAILY PRN 07/02/21 [History] Rosuvastatin [Crestor] 20 mg PO DAILY 07/02/21 [History] Sertraline [Zoloft] 100 mg PO DAILY 07/02/21 [History] LORazepam [Ativan] 2 mg PO BEDTIME PRN 07/03/21 [History] Levothyroxine 75 mcg PO ACBREAKFAST 07/03/21 [History] Cefdinir [Omnicef] 300 mg PO BID #6 cap 07/06/21 [Rx] Folic Acid 1 mg PO DAILY #14 tablet 07/06/21 [Rx] Midodrine 2.5 mg PO TIDAC #63 tablet 07/06/21 [Rx] Rivaroxaban [Xarelto] 10 mg PO DAILY #14 tab 07/06/21 [Rx] dronabinoL [Dronabinol] 2.5 mg PO DAILY #16 capsule 07/06/21 [Rx] Mirtazapine [Remeron] 15 mg PO BEDTIME 07/17/21 [History] Past Medical History HEENT History: Reports: None Cardiovascular History: Reports: Blood Clots/VTE/DVT, High Cholesterol Gastrointestinal History: Reports: Bowel Obstruction Genitourinary History: Reports: Other (See Below) 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: Musculoskeletal History: Reports: Arthritis, Back Pain, Chronic Psychiatric History: Reports: Anxiety, Depression Endocrine/Metabolic History: Reports: Hypothyroidism - Infectious Disease History Infectious Disease History: Reports: Chicken Pox - Past Surgical History HEENT Surgical History: Reports: None Cardiovascular Surgical History: Reports: None GI Surgical History: Reports: Cholecystectomy, Other (See Below) Other GI Surgeries/Procedures: Hemicolectomy and ileostomy Female Surgical History: Reports: None Musculoskeletal Surgical History: Reports: Shoulder Surgery Social & Family History - Family History Family Medical History: No Pertinent Family History - Tobacco Use Tobacco Use Status *Q: Never Tobacco User - Caffeine Use Caffeine Use: Reports: None - Recreational Drug Use Recreational Drug Use: No H&P Review of Systems - Review of Systems: Review Of Systems: See Below General: Reports: Weakness, Fatigue. Denies: Fever, Chills Pulmonary: Denies: Shortness of Breath, Cough Cardiovascular: Denies: Palpitations, Dyspnea on Exertion, Orthopnea Gastrointestinal: Denies: Abdominal Pain, Constipation, Diarrhea, Decreased Appetite, Nausea Psychiatric: Denies: Confusion Neurological: Denies: Dizziness, Headache Exam - Exam Exam: See Below - Vital Signs Vital Signs: Last Vital Signs Temp 97.8 F 07/17/21 09:57 Pulse 72 07/17/21 14:30 Resp 16 07/17/21 13:53 BP 94/53 L 07/17/21 14:30 Pulse Ox 95 07/17/21 14:30 Weight: 91 lb - Exam General: Alert, Oriented Lungs: Clear to Auscultation, Normal Respiratory Effort Cardiovascular: Regular Rate, Regular Rhythm GI/Abdominal Exam: Soft, Non-Tender Extremities: No Pedal Edema Neuro Extensive - Mental Status: Alert, Oriented x3 Psychiatric: Alert - Patient Data Lab Results Last 24 hrs: Laboratory Results - last 24 hr 07/17/21 07/17/21 07/17/21 Range/Units 09:55 09:55 10:09 WBC 5.84 (4.0-11.0) K/uL RBC 3.03 L (4.30-5.90) M/uL Hgb 9.5 L (12.0-16.0) g/dL Hct 28.9 L (36.0-46.0) % MCV 95.4 (80.0-98.0) fL MCH 31.4 (27.0-32.0) pg MCHC 32.9 (31.0-37.0) g/dL RDW Std Deviation 48.2 (28.0-62.0) fl RDW Coeff of Sofia 15 (11.0-15.0) % Plt Count 220 (150-400) K/uL MPV 9.70 (7.40-12.00) fL Neut % (Auto) 66.1 (48.0-80.0) % Lymph % (Auto) 26.5 (16.0-40.0) % [place] % (Auto) 6.2 (0.0-15.0) % Eos % (Auto) 1.0 (0.0-7.0) % Baso % (Auto) 0.2 (0.0-1.5) % Neut # (Auto) 3.9 (1.4-5.7) K/uL Lymph # (Auto) 1.6 (0.6-2.4) K/uL [place] # (Auto) 0.4 (0.0-0.8) K/uL Eos # (Auto) 0.1 (0.0-0.7) K/uL Baso # (Auto) 0.0 (0.0-0.1) K/uL Sodium 137 (136-145) mmol/L Potassium 3.8 (3.5-5.1) mmol/L Chloride 106 (98-107) mmol/L Carbon Dioxide 15.6 L (21.0-32.0) mmol/L BUN 45 H (7.0-18.0) mg/dL Creatinine 2.0 H (0.6-1.0) mg/dL Est Cr Clr Drug Dosing 14.38 mL/min Estimated GFR (MDRD) 23.9 ml/min Glucose 109 H (74-106) mg/dL Calcium 8.1 L (8.5-10.1) mg/dL Total Bilirubin 0.4 (0.2-1.0) mg/dL AST 33 (15-37) IU/L ALT 51 (14-63) IU/L Alkaline Phosphatase 96 (46-116) U/L Troponin I < 0.050 (0.000-0.056) ng/mL Total Protein 6.7 (6.4-8.2) g/dL Albumin 3.5 (3.4-5.0) g/dL Globulin 3.2 (2.6-4.0) g/dL Albumin/Globulin Ratio 1.1 (0.9-1.6) Urine Color Urine Appearance Urine pH (5.0-8.0) Ur Specific [place] (1.001-1.035) Urine Protein (NEGATIVE) mg/dL Urine Glucose (UA) (NEGATIVE) mg/dL Urine Ketones (NEGATIVE) mg/dL Urine Occult Blood (NEGATIVE) Urine Nitrite (NEGATIVE) Urine Bilirubin (NEGATIVE) Urine Urobilinogen (<2.0) EU/dL Ur Leukocyte Esterase (NEGATIVE) Urine RBC (0-2/HPF) Urine WBC (0-5/HPF) Ur Epithelial Cells (NONE-FEW) Urine Bacteria (NEGATIVE) SARS-CoV-2 RNA (BEAU) NEGATIVE (NEGATIVE) 07/17/21 Range/Units 12:13 WBC (4.0-11.0) K/uL RBC (4.30-5.90) M/uL Hgb (12.0-16.0) g/dL Hct (36.0-46.0) % MCV (80.0-98.0) fL MCH (27.0-32.0) pg MCHC (31.0-37.0) g/dL RDW Std Deviation (28.0-62.0) fl RDW Coeff of Sofia (11.0-15.0) % Plt Count (150-400) K/uL MPV (7.40-12.00) fL Neut % (Auto) (48.0-80.0) % Lymph % (Auto) (16.0-40.0) % [place] % (Auto) (0.0-15.0) % Eos % (Auto) (0.0-7.0) % Baso % (Auto) (0.0-1.5) % Neut # (Auto) (1.4-5.7) K/uL Lymph # (Auto) (0.6-2.4) K/uL [place] # (Auto) (0.0-0.8) K/uL Eos # (Auto) (0.0-0.7) K/uL Baso # (Auto) (0.0-0.1) K/uL Sodium (136-145) mmol/L Potassium (3.5-5.1) mmol/L Chloride (98-107) mmol/L Carbon Dioxide (21.0-32.0) mmol/L BUN (7.0-18.0) mg/dL Creatinine (0.6-1.0) mg/dL Est Cr Clr Drug Dosing mL/min Estimated GFR (MDRD) ml/min Glucose (74-106) mg/dL Calcium (8.5-10.1) mg/dL Total Bilirubin (0.2-1.0) mg/dL AST (15-37) IU/L ALT (14-63) IU/L Alkaline Phosphatase (46-116) U/L Troponin I (0.000-0.056) ng/mL Total Protein (6.4-8.2) g/dL Albumin (3.4-5.0) g/dL Globulin (2.6-4.0) g/dL Albumin/Globulin Ratio (0.9-1.6) Urine Color YELLOW Urine Appearance HAZY Urine pH 5.5 (5.0-8.0) Ur Specific [place] 1.020 (1.001-1.035) Urine Protein TRACE H (NEGATIVE) mg/dL Urine Glucose (UA) NEGATIVE (NEGATIVE) mg/dL Urine Ketones NEGATIVE (NEGATIVE) mg/dL Urine Occult Blood TRACE-INTACT H (NEGATIVE) Urine Nitrite NEGATIVE (NEGATIVE) Urine Bilirubin NEGATIVE (NEGATIVE) Urine Urobilinogen 0.2 (<2.0) EU/dL Ur Leukocyte Esterase NEGATIVE (NEGATIVE) Urine RBC 0-1 (0-2/HPF) Urine WBC 0-1 (0-5/HPF) Ur Epithelial Cells RARE (NONE-FEW) Urine Bacteria RARE (NEGATIVE) SARS-CoV-2 RNA (BEAU) (NEGATIVE) Result Diagrams: 07/17/21 09:55 07/17/21 09:55 Sepsis Event Note - Evaluation Sepsis Screening Result: No Definite Risk - Focused Exam Vital Signs: Vital Signs Temp Pulse Resp BP Pulse Ox 07/17/21 14:30 72 94/53 L 95 07/17/21 13:53 75 16 87/49 L 100 07/17/21 13:00 73 16 94/49 L 98 07/17/21 12:25 68 98/55 L 99 07/17/21 11:45 74 97/54 L 07/17/21 09:57 97.8 F 70 16 111/63 98 - Problem List (1) Acute kidney injury SNOMED Code(s): 69329512, 47207590 ICD Code: N17.9 - ACUTE KIDNEY FAILURE, UNSPECIFIED Status: Acute Current Visit: Yes (2) Dehydration SNOMED Code(s): 94125309 ICD Code: E86.0 - DEHYDRATION Status: Acute Current Visit: No (3) Hypotension SNOMED Code(s): 59427261 ICD Code: I95.9 - HYPOTENSION, UNSPECIFIED Status: Acute Current Visit: No Problem List Initiated/Reviewed/Updated: Yes Orders Last 24hrs: Active Orders 24 hr Category Date Time Status Admission Status [Patient Status] [ADT] Stat ADT 07/17/21 13:28 Active Antiembolic Devices [RC] PER UNIT ROUTINE Care 07/17/21 15:45 Active Bladder Scan [RC] ONETIME Care 07/17/21 09:50 Active Daily Weight [Height and Weight] [RC] DAILY Care 07/17/21 16:06 Ordered Intake and Output Strict [RC] ASDIRECTED Care 07/17/21 15:08 Active Oxygen Therapy [RC] PRN Care 07/17/21 15:10 Active VTE/DVT Education [RC] PER UNIT ROUTINE Care 07/17/21 15:10 Active Vital Signs [RC] Q4H Care 07/17/21 15:10 Active Regular Diet [DIET] Diet 07/17/21 Lunch Active CHLORIDE,URINE RANDOM [URCHEM] Stat Lab 07/17/21 10:42 Ordered CREATININE,URINE RAND [URCHEM] Stat Lab 07/17/21 10:42 Ordered OSMOLALITY - SERUM [REF] Stat Lab 07/17/21 09:55 Received OSMOLALITY - URINE Stat Lab 07/17/21 10:42 Ordered PROTEIN,URINE RANDOM [URCHEM] Stat Lab 07/17/21 10:42 Ordered SODIUM,URINE RANDOM [URCHEM] Stat Lab 07/17/21 10:42 Ordered Acetaminophen [TylenoL] Med 07/17/21 15:10 Active 650 mg PO Q4H PRN Lactated Ringers [Ringers, Lactated] 1,000 ml Med 07/17/21 10:45 Active IV ASDIRECTED Lactated Ringers [Ringers, Lactated] 1,000 ml Med 07/17/21 10:45 Active IV ASDIRECTED Levothyroxine Med 07/17/21 16:00 Ordered 75 mcg PO DAILY Midodrine Med 07/17/21 17:00 Ordered 2.5 mg PO TIDAC Mirtazapine [Mirtazapine] Med 07/17/21 21:00 Ordered 45 mg PO BEDTIME Ondansetron [Zofran] Med 07/17/21 15:10 Active 4 mg IVPUSH Q4H PRN Rivaroxaban [Xarelto] Med 07/17/21 16:00 Ordered 10 mg PO DAILY Sertraline [Zoloft] Med 07/18/21 09:00 Ordered 100 mg PO DAILY dronabinoL [Marinol] Med 07/17/21 16:00 Ordered 2.5 mg PO DAILY SCD [Sequential Compression Device] [OM.PC] Routine Oth 07/17/21 15:45 Ordered Code Status [Resuscitation Status] Routine Resus Stat 07/17/21 16:05 Ordered Medication Orders Acetaminophen (Acetaminophen 325 Mg Tab) 650 mg PO Q4H PRN PRN Reason: Pain (Mild 1-3)/fever Dronabinol (Dronabinol 2.5 Mg Cap) 2.5 mg PO DAILY [facility] Lactated Ringer's (Ringers, Lactated) 1,000 mls @ 999 mls/hr IV ASDIRECTED [facility] Last Admin: 07/17/21 11:02 Dose: 999 mls/hr Documented by: RADHA Lactated Ringer's (Ringers, Lactated) 1,000 mls @ 85 mls/hr IV ASDIRECTED [facility] Last Admin: 07/17/21 12:23 Dose: 85 mls/hr Documented by: RADHA Levothyroxine Sodium (Levothyroxine 75 Mcg Tab) 75 mcg PO ACBREAKFAST [facility] Midodrine (Midodrine 5 Mg Tab) 2.5 mg PO TIDAC [facility] Mirtazapine (Mirtazapine 15 Mg Tab) 15 mg PO BEDTIME [facility] Ondansetron HCl (Ondansetron 4 Mg/2 Ml Sdv) 4 mg IVPUSH Q4H PRN PRN Reason: Nausea/Vomiting Rivaroxaban (Rivaroxaban 10 Mg Tab) 10 mg PO DAILY [facility] Sertraline HCl (Sertraline 100 Mg Tab) 100 mg PO DAILY [facility] Assessment/Plan Comment:: RUFINO Secondary to dehydration, will encourage oral liquid intake, LR 85 mL/hour Will hold Xarelto, switch to Eliquis 5 mg twice daily due RUFINO Midodrine 2.5 TID Dronabinol 2.5 DAILY
[2021-07-17] MEDS: Levothyroxine 75 MCG Tab PO SCH (16:49)
[2021-07-17] MEDS: Mirtazapine 15 MG Tab PO SCH (21:08)
[2021-07-18 06:23] LABS: CARBON DIOXIDE,CO2 17.5 mmol/L (21.0-32.0); POTASSIUM,K 3.5 mmol/L (3.5-5.1)
[2021-07-18] MEDS: Midodrine 5 MG Tab PO SCH ×3 (07:49→16:32)
[2021-07-18] MEDS: Levothyroxine 75 MCG Tab PO SCH (07:49)
[2021-07-18] MEDS ORDERED: Apixaban 5 MG Tab PO SCH ×2 (09:00)
[2021-07-18] MEDS: Dronabinol 2.5 MG Cap PO SCH (09:47)
[2021-07-18] MEDS: Sertraline 100 MG Tab PO SCH (09:47)
[2021-07-18] MEDS: Apixaban 2.5 MG Tab PO SCH ×2 (09:48→20:54)
[2021-07-18] MEDS: Lactated Ringers 1,000 ML IV SCH (14:41)
--- NOTE | 2021-07-18 14:47 | PCM.PN ---
- General Info Date of Service: 07/18/21 Subjective Update: Patient states she still feels weak this morning, would like to rest and sleep. Have discussed with patient if tomorrow morning labs and clinical presentation appear normal then she will be ready for discharge. Patient understands - Review of Systems General: Reports: Weakness, Fatigue. Denies: Fever, Chills Pulmonary: Denies: Shortness of Breath, Cough Cardiovascular: Denies: Chest Pain, Dyspnea on Exertion, Orthopnea, Edema Gastrointestinal: Denies: Abdominal Pain, Decreased Appetite, Diarrhea, Nausea, Vomiting Neurological: Denies: Confusion, Dizziness Psychiatric: Denies: Confusion - Patient Data Vitals - Most Recent: Last Vital Signs Temp 99.1 F 07/18/21 12:32 Pulse 75 07/18/21 12:32 Resp 17 07/18/21 12:32 BP 113/46 L 07/18/21 12:32 Pulse Ox 97 07/18/21 12:32 Weight - Most Recent: 100 lb 4.8 oz I&O - Last 24 Hours: Intake & Output 07/17/21 07/18/21 07/18/21 22:59 06:59 14:59 Intake Total 680 Output Total 750 Balance -70 Lab Results Last 24 Hours: Laboratory Results - last 24 hr 07/18/21 07/18/21 Range/Units 05:10 05:10 WBC 5.97 (4.0-11.0) K/uL RBC 2.65 L (4.30-5.90) M/uL Hgb 8.2 L (12.0-16.0) g/dL Hct 24.5 L (36.0-46.0) % MCV 92.5 (80.0-98.0) fL MCH 30.9 (27.0-32.0) pg MCHC 33.5 (31.0-37.0) g/dL RDW Std Deviation 52.8 (28.0-62.0) fl RDW Coeff of Sofia 16 H (11.0-15.0) % Plt Count 189 (150-400) K/uL MPV 9.80 (7.40-12.00) fL Neut % (Auto) 58.1 (48.0-80.0) % Lymph % (Auto) 32.7 (16.0-40.0) % [place] % (Auto) 7.5 (0.0-15.0) % Eos % (Auto) 1.2 (0.0-7.0) % Baso % (Auto) 0.5 (0.0-1.5) % Neut # (Auto) 3.5 (1.4-5.7) K/uL Lymph # (Auto) 2.0 (0.6-2.4) K/uL [place] # (Auto) 0.5 (0.0-0.8) K/uL Eos # (Auto) 0.1 (0.0-0.7) K/uL Baso # (Auto) 0.0 (0.0-0.1) K/uL Nucleated RBC % 0.0 /100WBC Nucleated RBCs # 0 K/uL Sodium 138 (136-145) mmol/L Potassium 3.5 (3.5-5.1) mmol/L Chloride 107 (98-107) mmol/L Carbon Dioxide 17.5 L (21.0-32.0) mmol/L BUN 38 H (7.0-18.0) mg/dL Creatinine 1.4 H (0.6-1.0) mg/dL Est Cr Clr Drug Dosing 22.63 mL/min Estimated GFR (MDRD) 36.1 ml/min Glucose 84 (74-106) mg/dL Calcium 7.8 L (8.5-10.1) mg/dL Med Orders - Current: Current Medications Acetaminophen (Acetaminophen 325 Mg Tab) 650 mg PO Q4H PRN PRN Reason: Pain (Mild 1-3)/fever Last Admin: 07/18/21 03:08 Dose: 650 mg Documented by: Apixaban (Apixaban 2.5 Mg Tab) 2.5 mg PO BID [facility] Last Admin: 07/18/21 09:48 Dose: 2.5 mg Documented by: Dronabinol (Dronabinol 2.5 Mg Cap) 2.5 mg PO DAILY [facility] Last Admin: 07/18/21 09:47 Dose: 2.5 mg Documented by: Folic Acid (Folic Acid 1 Mg Tab) 1 mg PO BEDTIME [facility] Lactated Ringer's (Ringers, Lactated) 1,000 mls @ 999 mls/hr IV ASDIRECTED [facility] Last Admin: 07/17/21 11:02 Dose: 999 mls/hr Documented by: Lactated Ringer's (Ringers, Lactated) 1,000 mls @ 85 mls/hr IV ASDIRECTED [facility] Last Admin: 07/18/21 14:41 Dose: 85 mls/hr Documented by: Levothyroxine Sodium (Levothyroxine 75 Mcg Tab) 75 mcg PO ACBREAKFAST [facility] Last Admin: 07/18/21 07:49 Dose: 75 mcg Documented by: Midodrine (Midodrine 5 Mg Tab) 2.5 mg PO TIDAC [facility] Last Admin: 07/18/21 12:33 Dose: 2.5 mg Documented by: Mirtazapine (Mirtazapine 15 Mg Tab) 15 mg PO BEDTIME [facility] Last Admin: 07/17/21 21:08 Dose: 15 mg Documented by: Ondansetron HCl (Ondansetron 4 Mg/2 Ml Sdv) 4 mg IVPUSH Q4H PRN PRN Reason: Nausea/Vomiting Sertraline HCl (Sertraline 100 Mg Tab) 100 mg PO DAILY [facility] Last Admin: 07/18/21 09:47 Dose: 100 mg Documented by: Discontinued Medications Apixaban (Apixaban 5 Mg Tab) 5 mg PO BID [facility] Apixaban (Apixaban 5 Mg Tab) 2.5 mg PO BID [facility] Midodrine (Midodrine 5 Mg Tab) 2.5 mg PO TIDAC STA Stop: 07/17/21 13:18 Last Admin: 07/17/21 13:47 Dose: 2.5 mg Documented by: Rivaroxaban (Rivaroxaban 10 Mg Tab) 10 mg PO DAILY [facility] Last Admin: 07/17/21 16:29 Dose: 10 mg Documented by: - Exam General: Alert, Oriented Lungs: Clear to Auscultation, Normal Respiratory Effort Cardiovascular: Regular Rate, Regular Rhythm GI/Abdominal Exam: Soft, Non-Tender, No Distention Extremities: No Pedal Edema Psy/Mental Status: Alert - Patient Data Lab Results Last 24 hrs: Laboratory Results - last 24 hr 07/18/21 07/18/21 Range/Units 05:10 05:10 WBC 5.97 (4.0-11.0) K/uL RBC 2.65 L (4.30-5.90) M/uL Hgb 8.2 L (12.0-16.0) g/dL Hct 24.5 L (36.0-46.0) % MCV 92.5 (80.0-98.0) fL MCH 30.9 (27.0-32.0) pg MCHC 33.5 (31.0-37.0) g/dL RDW Std Deviation 52.8 (28.0-62.0) fl RDW Coeff of Sofia 16 H (11.0-15.0) % Plt Count 189 (150-400) K/uL MPV 9.80 (7.40-12.00) fL Neut % (Auto) 58.1 (48.0-80.0) % Lymph % (Auto) 32.7 (16.0-40.0) % [place] % (Auto) 7.5 (0.0-15.0) % Eos % (Auto) 1.2 (0.0-7.0) % Baso % (Auto) 0.5 (0.0-1.5) % Neut # (Auto) 3.5 (1.4-5.7) K/uL Lymph # (Auto) 2.0 (0.6-2.4) K/uL [place] # (Auto) 0.5 (0.0-0.8) K/uL Eos # (Auto) 0.1 (0.0-0.7) K/uL Baso # (Auto) 0.0 (0.0-0.1) K/uL Nucleated RBC % 0.0 /100WBC Nucleated RBCs # 0 K/uL Sodium 138 (136-145) mmol/L Potassium 3.5 (3.5-5.1) mmol/L Chloride 107 (98-107) mmol/L Carbon Dioxide 17.5 L (21.0-32.0) mmol/L BUN 38 H (7.0-18.0) mg/dL Creatinine 1.4 H (0.6-1.0) mg/dL Est Cr Clr Drug Dosing 22.63 mL/min Estimated GFR (MDRD) 36.1 ml/min Glucose 84 (74-106) mg/dL Calcium 7.8 L (8.5-10.1) mg/dL Result Diagrams: 07/18/21 05:10 07/18/21 05:10 Sepsis Event Note - Evaluation Sepsis Screening Result: No Definite Risk - Focused Exam Vital Signs: Vital Signs Temp Pulse Resp BP Pulse Ox 07/18/21 12:32 99.1 F 75 17 113/46 L 97 07/18/21 08:00 96.4 F L 66 16 83/46 L 96 07/18/21 03:00 67 14 111/48 L 95 - Problem List & Annotations (1) Acute kidney injury SNOMED Code(s): 91492520, 20715025 Code(s): N17.9 - ACUTE KIDNEY FAILURE, UNSPECIFIED Status: Acute Current Visit: Yes (2) Dehydration SNOMED Code(s): 31991125 Code(s): E86.0 - DEHYDRATION Status: Acute Current Visit: No (3) Hypotension SNOMED Code(s): 91734040 Code(s): I95.9 - HYPOTENSION, UNSPECIFIED Status: Acute Current Visit: No - Problem List Review Problem List Initiated/Reviewed/Updated: Yes - My Orders Last 24 Hours: My Active Orders 07/17/21 15:08 Intake and Output Strict [RC] Q12H 07/17/21 15:10 Oxygen Therapy [RC] PRN VTE/DVT Education [RC] PER UNIT ROUTINE Vital Signs [RC] Q4H Acetaminophen [TylenoL] 650 mg PO Q4H PRN Ondansetron [Zofran] 4 mg IVPUSH Q4H PRN 07/17/21 15:45 Antiembolic Devices [RC] PER UNIT ROUTINE SCD [Sequential Compression Device] [OM.PC] Routine 07/17/21 16:00 Levothyroxine 75 mcg PO ACBREAKFAST 07/17/21 16:06 Daily Weight [Height and Weight] [RC] DAILY 07/17/21 17:08 Code Status [Resuscitation Status] Routine 07/17/21 21:00 Mirtazapine [Remeron] 15 mg PO BEDTIME 07/18/21 07:30 Midodrine 2.5 mg PO TIDAC 07/18/21 09:00 Apixaban [Eliquis] 2.5 mg PO BID Sertraline [Zoloft] 100 mg PO DAILY dronabinoL [Marinol] 2.5 mg PO DAILY 07/18/21 21:00 Folic Acid 1 mg PO BEDTIME - Plan Plan:: RUFINO Secondary to dehydration, will encourage oral fluid liquid intake, LR 85 m L/hour, creatinine 1.4 today Will hold Xarelto, switch to Eliquis 2.5 mg BID due RUFINO Midodrine 2.5 TID Dronabinol 2.5 DAILY
[2021-07-18] MEDS: Mirtazapine 15 MG Tab PO SCH (20:54)
[2021-07-18] MEDS ORDERED: Folic Acid 1 MG Tab PO SCH (21:00)
[2021-07-19] MEDS: Lactated Ringers 1,000 ML IV SCH (04:21)
[2021-07-19] MEDS: Midodrine 5 MG Tab PO SCH ×2 (06:35→10:47)
[2021-07-19] MEDS: Levothyroxine 75 MCG Tab PO SCH (06:35)
[2021-07-19 07:46] LABS: CARBON DIOXIDE,CO2 18.7 mmol/L (21.0-32.0); POTASSIUM,K 3.5 mmol/L (3.5-5.1)
[2021-07-19 08:03] VITALS: BP 86/54; PULSE 74
[2021-07-19] MEDS: Apixaban 2.5 MG Tab PO SCH (08:38)
[2021-07-19] MEDS: Sertraline 100 MG Tab PO SCH (08:38)
[2021-07-19] MEDS: Dronabinol 2.5 MG Cap PO SCH (08:39)
[2021-07-19] MEDS ORDERED: Folic Acid 1 MG Tab PO SCH (09:00)
--- NOTE | 2021-07-19 14:59 | PCM.DCSUM1 ---
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 Patient was seen in clinic this morning and sent to the ED due to fatigue and worsening kidney functions on lab work. At admission patient states fatigue, generalized weakness. Patient states she has been eating well, drinking appropriately but further questioning with patient's daughter she states that patient does not drink enough fluids. Patient states eating appropriately, denies chest pain, shortness of breath, dizziness, headaches. White blood cell 5.4, hemoglobin 9.5, hematocrit 29.8, platelet 220, sodium 137, potassium 3.8, BUN 45, creatinine 2.0 urinalysis negative Patient was admitted admitted for IV fluids. Patient discharged on 07-19-21 in stable condition. Kidney functions had improved since admission. Recommendation made that patient may receive IV fluids at infusion center as needed for dehydration as an outpatient. Patient to resume all home medications on discharge. Patient to review all home medications with PCP at follow-up visit. Patient understands and agrees. - Discharge Data Discharge Date: 07/19/21 Discharge Disposition: Home, Self-Care 01 Condition: Good - Referral to Home Health Primary Care Physician: Bridger Law MD - Discharge Diagnosis/Problem(s) (1) Acute kidney injury SNOMED Code(s): 41565478, 00872082 ICD Code: N17.9 - ACUTE KIDNEY FAILURE, UNSPECIFIED Status: Acute (2) Dehydration SNOMED Code(s): 36891997 ICD Code: E86.0 - DEHYDRATION Status: Acute (3) Hypotension SNOMED Code(s): 22795147 ICD Code: I95.9 - HYPOTENSION, UNSPECIFIED Status: Acute - Patient Instructions Diet: Usual Diet as Tolerated Activity: As Tolerated Other/Special Instructions: Recommend patient recieve IV fluids on an outpatient basis as needed based on PCP findings and clinical impression. Patient was previously taking Xarelto 10mg daily, may resume that medicaiton at dischage. Please discuss all medications with PCP at follow up visit - Discharge Plan Prescriptions/Med Rec: Rivaroxaban [Xarelto] 10 mg PO DAILY #7 tab Home Medications: Home Meds Melatonin 1 tab PO BEDTIME 07/02/21 [History] Ondansetron [Zofran ODT] 1 tab PO DAILY PRN 07/02/21 [History] Rosuvastatin [Crestor] 20 mg PO DAILY 07/02/21 [History] Sertraline [Zoloft] 100 mg PO DAILY 07/02/21 [History] LORazepam [Ativan] 2 mg PO BEDTIME PRN 07/03/21 [History] Levothyroxine 75 mcg PO ACBREAKFAST 07/03/21 [History] Folic Acid 1 mg PO DAILY #14 tablet 07/06/21 [Rx] Midodrine 2.5 mg PO TIDAC #63 tablet 07/06/21 [Rx] dronabinoL [Dronabinol] 2.5 mg PO DAILY #16 capsule 07/06/21 [Rx] Mirtazapine [Remeron] 15 mg PO BEDTIME 07/17/21 [History] Rivaroxaban [Xarelto] 10 mg PO DAILY #7 tab 07/19/21 [Rx] Patient Handouts: Acute Kidney Injury, Adult Referrals: Bridger Law MD [Primary Care Provider] - - Discharge Summary/Plan Comment DC Time >30 min.: Yes Total # of Minutes for Discharge Time: 31 - General Info Date of Service: 07/19/21 Subjective Update: Patient states feeling well this morning and is eager to go home. - Review of Systems General: Denies: Fever, Chills Pulmonary: Denies: Shortness of Breath Cardiovascular: Denies: Palpitations, Dyspnea on Exertion, Edema Gastrointestinal: Denies: Abdominal Pain, Decreased Appetite, Nausea, Vomiting Neurological: Denies: Confusion, Dizziness - Patient Data Vitals - Most Recent: Last Vital Signs Temp 95.4 F L 07/19/21 08:00 Pulse 74 07/19/21 08:00 Resp 20 07/19/21 08:00 BP 86/54 L 07/19/21 08:00 Pulse Ox 96 07/19/21 08:00 Weight - Most Recent: 99 lb 8 oz I&O - Last 24 hours: Intake & Output 07/18/21 07/19/21 07/19/21 22:59 06:59 14:59 Intake Total 1570 1449 850 Output Total 1850 1050 Balance -280 399 850 Lab Results - Last 24 hrs: Laboratory Results - last 24 hr 07/17/21 07/18/21 07/19/21 Range/Units 09:55 15:28 06:14 WBC 6.12 (4.0-11.0) K/uL RBC 2.68 L (4.30-5.90) M/uL Hgb 8.3 L (12.0-16.0) g/dL Hct 25.1 L (36.0-46.0) % MCV 93.7 (80.0-98.0) fL MCH 31.0 (27.0-32.0) pg MCHC 33.1 (31.0-37.0) g/dL RDW Std Deviation 55.2 (28.0-62.0) fl RDW Coeff of Sofia 16 H (11.0-15.0) % Plt Count 187 (150-400) K/uL MPV 10.10 (7.40-12.00) fL Neut % (Auto) 58.5 (48.0-80.0) % Lymph % (Auto) 31.4 (16.0-40.0) % [place] % (Auto) 6.9 (0.0-15.0) % Eos % (Auto) 2.5 (0.0-7.0) % Baso % (Auto) 0.7 (0.0-1.5) % Neut # (Auto) 3.6 (1.4-5.7) K/uL Lymph # (Auto) 1.9 (0.6-2.4) K/uL [place] # (Auto) 0.4 (0.0-0.8) K/uL Eos # (Auto) 0.2 (0.0-0.7) K/uL Baso # (Auto) 0.0 (0.0-0.1) K/uL Nucleated RBC % 0.0 /100WBC Nucleated RBCs # 0 K/uL Sodium (136-145) mmol/L Potassium (3.5-5.1) mmol/L Chloride (98-107) mmol/L Carbon Dioxide (21.0-32.0) mmol/L BUN (7.0-18.0) mg/dL Creatinine (0.6-1.0) mg/dL Est Cr Clr Drug Dosing mL/min Estimated GFR (MDRD) ml/min Glucose (74-106) mg/dL Serum Osmolality 288 (275-295) mosm/kg Calcium (8.5-10.1) mg/dL Ur Random Creatinine 106.1 mg/dL U Random Total Protein 85.1 H (<11.9) mg/dL Ur Random Sodium 5.0 L (40.0-220.0) mmol/L Ur Random Chloride 65 mmol/L 07/19/21 Range/Units 06:14 WBC (4.0-11.0) K/uL RBC (4.30-5.90) M/uL Hgb (12.0-16.0) g/dL Hct (36.0-46.0) % MCV (80.0-98.0) fL MCH (27.0-32.0) pg MCHC (31.0-37.0) g/dL RDW Std Deviation (28.0-62.0) fl RDW Coeff of Sofia (11.0-15.0) % Plt Count (150-400) K/uL MPV (7.40-12.00) fL Neut % (Auto) (48.0-80.0) % Lymph % (Auto) (16.0-40.0) % [place] % (Auto) (0.0-15.0) % Eos % (Auto) (0.0-7.0) % Baso % (Auto) (0.0-1.5) % Neut # (Auto) (1.4-5.7) K/uL Lymph # (Auto) (0.6-2.4) K/uL [place] # (Auto) (0.0-0.8) K/uL Eos # (Auto) (0.0-0.7) K/uL Baso # (Auto) (0.0-0.1) K/uL Nucleated RBC % /100WBC Nucleated RBCs # K/uL Sodium 140 (136-145) mmol/L Potassium 3.5 (3.5-5.1) mmol/L Chloride 109 H (98-107) mmol/L Carbon Dioxide 18.7 L (21.0-32.0) mmol/L BUN 31 H (7.0-18.0) mg/dL Creatinine 1.1 H (0.6-1.0) mg/dL Est Cr Clr Drug Dosing 28.58 mL/min Estimated GFR (MDRD) 47.7 ml/min Glucose 88 (74-106) mg/dL Serum Osmolality (275-295) mosm/kg Calcium 7.8 L (8.5-10.1) mg/dL Ur Random Creatinine mg/dL U Random Total Protein (<11.9) mg/dL Ur Random Sodium (40.0-220.0) mmol/L Ur Random Chloride mmol/L Med Orders - Current: Current Medications Discontinued Medications Acetaminophen (Acetaminophen 325 Mg Tab) 650 mg PO Q4H PRN PRN Reason: Pain (Mild 1-3)/fever Last Admin: 07/18/21 03:08 Dose: 650 mg Documented by: Apixaban (Apixaban 5 Mg Tab) 5 mg PO BID [facility] Apixaban (Apixaban 5 Mg Tab) 2.5 mg PO BID [facility] Apixaban (Apixaban 2.5 Mg Tab) 2.5 mg PO BID [facility] Last Admin: 07/19/21 08:38 Dose: 2.5 mg Documented by: Dronabinol (Dronabinol 2.5 Mg Cap) 2.5 mg PO DAILY [facility] Last Admin: 07/19/21 08:39 Dose: 2.5 mg Documented by: Folic Acid (Folic Acid 1 Mg Tab) 1 mg PO BEDTIME [facility] Last Admin: 07/18/21 20:53 Dose: Not Given Documented by: Folic Acid (Folic Acid 1 Mg Tab) 1 mg PO DAILY [facility] Last Admin: 07/19/21 08:38 Dose: 1 mg Documented by: Lactated Ringer's (Ringers, Lactated) 1,000 mls @ 999 mls/hr IV ASDIRECTED [facility] Last Admin: 07/17/21 11:02 Dose: 999 mls/hr Documented by: Lactated Ringer's (Ringers, Lactated) 1,000 mls @ 85 mls/hr IV ASDIRECTED [facility] Last Admin: 07/19/21 04:21 Dose: 85 mls/hr Documented by: Levothyroxine Sodium (Levothyroxine 75 Mcg Tab) 75 mcg PO ACBREAKFAST [facility] Last Admin: 07/19/21 06:35 Dose: 75 mcg Documented by: Midodrine (Midodrine 5 Mg Tab) 2.5 mg PO TIDAC STA Stop: 07/17/21 13:18 Last Admin: 07/17/21 13:47 Dose: 2.5 mg Documented by: Midodrine (Midodrine 5 Mg Tab) 2.5 mg PO TIDAC [facility] Last Admin: 07/19/21 10:47 Dose: 2.5 mg Documented by: Mirtazapine (Mirtazapine 15 Mg Tab) 15 mg PO BEDTIME [facility] Last Admin: 07/18/21 20:54 Dose: 15 mg Documented by: Ondansetron HCl (Ondansetron 4 Mg/2 Ml Sdv) 4 mg IVPUSH Q4H PRN PRN Reason: Nausea/Vomiting Rivaroxaban (Rivaroxaban 10 Mg Tab) 10 mg PO DAILY [facility] [place] Last Admin: 07/17/21 16:29 Dose: 10 mg Documented by: Sertraline HCl (Sertraline 100 Mg Tab) 100 mg PO DAILY [facility] Last Admin: 07/19/21 08:38 Dose: 100 mg Documented by: - Exam General: Reports: Alert, Oriented Lungs: Reports: Clear to Auscultation, Normal Respiratory Effort Cardiovascular: Reports: Regular Rate, Regular Rhythm GI/Abdominal Exam: Soft, Non-Tender Extremities: No Pedal Edema
== END 2021-07-19 12:50 | disposition home or self-care (01) ==
LOC: MW.ED 09:19 → MW.MS 13:28
PROVIDERS: ADMIT Internal Medicine; ATTEND Internal Medicine
DX: E86.0 Dehydration (principal); N17.9 Acute kidney failure, unspecified; E03.9 Hypothyroidism, unspecified; E78.00 Pure hypercholesterolemia, unspecified; I95.9 Hypotension, unspecified; Z79.899 Other long term (current) drug therapy; Z79.890 Hormone replacement therapy; Z90.49 Acquired absence of other specified parts of digestive tract; Z98.890 Other specified postprocedural states; Z20.822 Contact with and (suspected) exposure to COVID-19
CPT/HCPCS: 36415; 51702; 80048; 80053; 81001; 82436; 82570; 83930; 83935; 84156; 84300; 84484; 85025; 93005; 99285; A9270; G0378; J7120; Q0167; U0002

== ENCOUNTER 2021-07-31 15:11 | Observation (INO) | payer MEDICARE, BC ==
[2021-07-31] MEDS ORDERED: Ondansetron 4 MG/2 ML SDV IVPUSH PRN (17:07)
[2021-07-31] MEDS ORDERED: Potassium Chloride 10% 20 MEQ/15 ML Soln 30 ML UD Cup PO ONE (17:11)
--- NOTE | 2021-07-31 17:11 | PCM.HP.2 ---
H&P History of Present Illness - General Date of Service: 07/31/21 Admit Problem/Dx: Admission Diagnosis/Problem Admission Diagnosis/Problem Weakness - History of Present Illness Initial Comments - Free Text/Narative: 80-year-old woman with a past medical history of volvulus status post partial colectomy, history of DVTs , on Xarelto, history of hypertension on 2.5 mg TID midodrine was recently admitted for dehydration and RUFINO. Patient was seen in clinic this morning and sent to the hospital as a direct admit due to fatigue, decreased appetite and worsening kidney function, patient states fatigue, generalized weakness. Patient states that she has been losing weight progressively and does not really even drink much. Patient was upset that her ileostomy bag had started to leak which was promptly changed by the bedside nurse. Laboratory Tests 10/31/14 07/31/21 07/31/21 15:05 12:00 12:00 Hgb 10.0 L INR 1.19 H Sodium 135 L Potassium 3.3 L BUN 34 H Creatinine 2.0 H - Related Data Allergies/Adverse Reactions: Allergies Allergy/AdvReac Type Severity Reaction Status Date / Time No Known Allergies Allergy Verified 07/31/21 15:38 Home Medications: Home Meds Melatonin 2 mg PO BEDTIME 07/02/21 [History] Ondansetron [Zofran ODT] 1 tab PO TIDAC PRN 07/02/21 [History] Rosuvastatin [Crestor] 20 mg PO DAILY 07/02/21 [History] Sertraline [Zoloft] 100 mg PO DAILY 07/02/21 [History] Levothyroxine 75 mcg PO ACBREAKFAST 07/03/21 [History] Folic Acid 1 mg PO DAILY #14 tablet 07/06/21 [Rx] Midodrine 2.5 mg PO TIDAC #63 tablet 07/06/21 [Rx] dronabinoL [Dronabinol] 2.5 mg PO DAILY #16 capsule 07/06/21 [Rx] Mirtazapine [Remeron] 15 mg PO BEDTIME 07/17/21 [History] Rivaroxaban [Xarelto] 10 mg PO DAILY #7 tab 07/19/21 [Rx] Loperamide [Imodium AD] 1 tab PO DAILY 07/31/21 [History] Past Medical History HEENT History: Reports: None Cardiovascular History: Reports: Blood Clots/VTE/DVT, High Cholesterol Gastrointestinal History: Reports: Bowel Obstruction Genitourinary History: Reports: Other (See Below) Other Genitourinary History: [employer] History: Reports: Musculoskeletal History: Reports: Arthritis, Back Pain, Chronic Psychiatric History: Reports: Anxiety, Depression Endocrine/Metabolic History: Reports: Hypothyroidism - Infectious Disease History Infectious Disease History: Reports: Chicken Pox - Past Surgical History HEENT Surgical History: Reports: None Cardiovascular Surgical History: Reports: None GI Surgical History: Reports: Cholecystectomy, Other (See Below) Other GI Surgeries/Procedures: Hemicolectomy and ileostomy Female Surgical History: Reports: None Musculoskeletal Surgical History: Reports: Shoulder Surgery Social & Family History - Family History Family Medical History: No Pertinent Family History - Tobacco Use Tobacco Use Status *Q: Never Tobacco User - Caffeine Use Caffeine Use: Reports: None - Recreational Drug Use Recreational Drug Use: No H&P Review of Systems - Review of Systems: Review Of Systems: See Below General: Reports: Malaise, Weakness, Fatigue. Denies: Fever, Chills Pulmonary: Denies: Shortness of Breath Cardiovascular: Denies: Chest Pain, Palpitations, Dyspnea on Exertion Gastrointestinal: Reports: Anorexia, Decreased Appetite, Nausea. Denies: Abdominal Pain, Black Stool, Bloody Stool, Constipation, Vomiting Genitourinary: Denies: Dysuria, Frequency Musculoskeletal: Denies: Neck Pain, Shoulder Pain, Arm Pain Psychiatric: Reports: Mood Lability, Anxiety. Denies: Confusion, Depression Exam - Exam Exam: See Below - Vital Signs Weight: 39.009 kg - Exam General: Alert, Oriented, Mild Distress Neck: Supple, Trachea Midline Lungs: Clear to Auscultation, Normal Respiratory Effort Cardiovascular: Regular Rate, Regular Rhythm GI/Abdominal Exam: Normal Bowel Sounds, Soft, Non-Tender - Problem List (1) Acute kidney injury SNOMED Code(s): 80908539, 84021224 ICD Code: N17.9 - ACUTE KIDNEY FAILURE, UNSPECIFIED Status: Acute Current Visit: No (2) Dehydration SNOMED Code(s): 17862192 ICD Code: E86.0 - DEHYDRATION Status: Acute Current Visit: No (3) Patient underweight SNOMED Code(s): 511776139 ICD Code: R63.6 - UNDERWEIGHT Status: Acute Current Visit: Yes Problem List Initiated/Reviewed/Updated: Yes Orders Last 24hrs: Active Orders 24 hr Category Date Time Status Patient Status [ADT] Routine ADT 07/31/21 17:07 Active Antiembolic Devices [RC] PER UNIT ROUTINE Care 07/31/21 17:09 Active Oxygen Therapy [RC] PRN Care 07/31/21 17:07 Active RT Aerosol Therapy [RC] ASDIRECTED Care 07/31/21 17:09 Active VTE/DVT Education [RC] PER UNIT ROUTINE Care 07/31/21 17:07 Active Vital Signs [RC] Q4H Care 07/31/21 17:07 Active Clear Liquid Diet [DIET] Diet 07/31/21 Dinner Active Albuterol/Ipratropium [DuoNeb 3.0-0.5 MG/3 ML] Med 07/31/21 17:07 Ordered 3 ml NEB Q4HRRT PRN Lactated Ringers [Ringers, Lactated] 1,000 ml Med 07/31/21 17:15 Ordered IV ASDIRECTED Ondansetron [Zofran] Med 07/31/21 17:07 Ordered 4 mg IVPUSH Q4H PRN Pantoprazole [ProTONIX IV] 40 mg Med 07/31/21 17:15 Ordered Sodium Chloride 0.9% [Normal Saline] 10 ml IV DAILY Potassium Chloride Med 07/31/21 17:11 Once 40 meq PO ONETIME ONE Sequential Compression Device [OM.PC] Per Unit Routine Oth 07/31/21 17:08 Ordered Medication Orders Albuterol/Ipratropium (Albuterol/Ipratropium 3.0-0.5 Mg/3 Ml Neb Soln) 3 ml NEB Q4HRRT PRN PRN Reason: Shortness Of Breath/wheezing Lactated Ringer's (Ringers, Lactated) 1,000 mls @ 125 mls/hr IV Q8H [facility] Ondansetron HCl (Ondansetron 4 Mg/2 Ml Sdv) 4 mg IVPUSH Q4H PRN PRN Reason: Nausea/Vomiting Assessment/Plan Comment:: 80-year-old female admitted for generalized weakness, decreased p.o. intake, fatigue, RUFINO and dehydration Start patient on IV fluids for hydration IV Zofran for nausea vomiting IV pantoprazole Continue colostomy care Patient was recommended to get IV infusions upon discharge on outpatient basis but per patient she did not receive any IV infusions since discharge Continue supportive care We will get physical therapy on board as patient is extremely deconditioned Monitor kidney function daily Avoid nephrotoxic meds
[2021-07-31] MEDS: Pantoprazole 40 MG in Sodium Chloride 0.9% 10 ML IV SCH (17:59)
[2021-07-31] MEDS ORDERED: Albuterol/Ipratropium 3.0-0.5 MG/3 ML Neb Soln NEB PRN (18:00)
[2021-07-31] MEDS: Lactated Ringers 1,000 ML IV SCH (18:00)
[2021-07-31] MEDS: Acetaminophen 325 MG Tab PO PRN (18:00)
[2021-07-31] MEDS ORDERED: Ondansetron 4 MG Tab.DIS PO PRN (19:12)
[2021-07-31] MEDS ORDERED: Non-Formulary Medication 1 Each (Melatonin [Melatonin] 10 MG Tablet) PO SCH (21:00)
[2021-07-31] MEDS: Mirtazapine 15 MG Tab PO SCH (21:54)
[2021-07-31] MEDS: Melatonin 3 MG Tab PO PRN (21:54)
[2021-08-01] MEDS: Lactated Ringers 1,000 ML IV SCH ×3 (02:10→19:42)
[2021-08-01] MEDS: Midodrine 5 MG Tab PO SCH ×3 (06:51→16:51)
[2021-08-01] MEDS: Levothyroxine 75 MCG Tab PO SCH (06:51)
[2021-08-01 07:48] LABS: CARBON DIOXIDE,CO2 16.5 mmol/L (21.0-32.0); POTASSIUM,K 3.7 mmol/L (3.5-5.1)
[2021-08-01] MEDS: Pantoprazole 40 MG in Sodium Chloride 0.9% 10 ML IV SCH (08:31)
[2021-08-01] MEDS: Folic Acid 1 MG Tab PO SCH (08:32)
[2021-08-01] MEDS: Dronabinol 2.5 MG Cap PO SCH (08:32)
[2021-08-01] MEDS: Sertraline 100 MG Tab PO SCH (08:32)
[2021-08-01] MEDS ORDERED: Rivaroxaban 10 MG Tab PO SCH (09:00)
--- NOTE | 2021-08-01 10:42 | PCM.PN ---
<Leigha Anders - Last Filed: 08/01/21 10:45> - General Info Date of Service: 08/01/21 Admission Dx/Problem (Free Text): Admission Diagnosis/Problem Admission Diagnosis/Problem Weakness Subjective Update: Patient seen at bedside and states she feels hungry and would like a regular diet. Denies chest pain, palpitations, dry mouth, headaches, dizziness. Called and spoke with patients daughter Shelbie. As per surgery, Dr. Styles in [place]: goal of ileostomy output is <1500ml per day. Family advised to give anti-diarrheal meds bid to help with this. - Review of Systems General: Denies: Fever, Chills HEENT: Denies: Headaches, Sore Throat, Visual Changes Pulmonary: Denies: Shortness of Breath, Cough Cardiovascular: Reports: Dyspnea on Exertion. Denies: Chest Pain, Palpitations, Edema Gastrointestinal: Reports: Other (ileostomy). Denies: Abdominal Pain, Constipation Genitourinary: Denies: Dysuria Musculoskeletal: Denies: Leg Pain, Joint Pain Skin: Denies: Cyanosis Neurological: Denies: Confusion, Dizziness - Patient Data Vitals - Most Recent: Last Vital Signs Temp 98.1 F 08/01/21 08:40 Pulse 63 08/01/21 08:40 Resp 16 08/01/21 08:40 BP 101/59 L 08/01/21 08:40 Pulse Ox 96 08/01/21 08:40 Weight - Most Recent: 39.009 kg I&O - Last 24 Hours: Intake & Output 07/31/21 08/01/21 08/01/21 22:59 06:59 14:59 Intake Total 800 Output Total 1000 Balance -200 Lab Results Last 24 Hours: Laboratory Results - last 24 hr 08/01/21 08/01/21 Range/Units 05:25 05:25 WBC 5.56 (4.0-11.0) K/uL RBC 2.79 L (4.30-5.90) M/uL Hgb 8.7 L (12.0-16.0) g/dL Hct 26.3 L (36.0-46.0) % MCV 94.3 (80.0-98.0) fL MCH 31.2 (27.0-32.0) pg MCHC 33.1 (31.0-37.0) g/dL RDW Std Deviation 54.8 (28.0-62.0) fl RDW Coeff of Sofia 16 H (11.0-15.0) % Plt Count 161 (150-400) K/uL MPV 10.00 (7.40-12.00) fL Neut % (Auto) 65.8 (48.0-80.0) % Lymph % (Auto) 24.8 (16.0-40.0) % [place] % (Auto) 8.3 (0.0-15.0) % Eos % (Auto) 0.7 (0.0-7.0) % Baso % (Auto) 0.4 (0.0-1.5) % Neut # (Auto) 3.7 (1.4-5.7) K/uL Lymph # (Auto) 1.4 (0.6-2.4) K/uL [place] # (Auto) 0.5 (0.0-0.8) K/uL Eos # (Auto) 0.0 (0.0-0.7) K/uL Baso # (Auto) 0.0 (0.0-0.1) K/uL Nucleated RBC % 0.0 /100WBC Nucleated RBCs # 0 K/uL Sodium 136 (136-145) mmol/L Potassium 3.7 (3.5-5.1) mmol/L Chloride 107 (98-107) mmol/L Carbon Dioxide 16.5 L (21.0-32.0) mmol/L BUN 29 H (7.0-18.0) mg/dL Creatinine 1.5 H (0.6-1.0) mg/dL Est Cr Clr Drug Dosing 18.11 mL/min Estimated GFR (MDRD) 33.3 ml/min Glucose 86 (74-106) mg/dL Calcium 7.8 L (8.5-10.1) mg/dL Phosphorus 3.1 (2.6-4.7) mg/dL Magnesium 2.0 (1.8-2.4) mg/dL Med Orders - Current: Current Medications Acetaminophen (Acetaminophen 325 Mg Tab) 650 mg PO Q4H PRN PRN Reason: Pain/Fever Last Admin: 07/31/21 18:00 Dose: 650 mg Documented by: Albuterol/Ipratropium (Albuterol/Ipratropium 3.0-0.5 Mg/3 Ml Neb Soln) 3 ml NEB Q4HRRT PRN PRN Reason: Shortness Of Breath/wheezing Folic Acid (Folic Acid 1 Mg Tab) 1 mg PO DAILY [facility] Last Admin: 08/01/21 08:32 Dose: 1 mg Documented by: Lactated Ringer's (Ringers, Lactated) 1,000 mls @ 125 mls/hr IV Q8H [facility] Last Admin: 08/01/21 09:56 Dose: 125 mls/hr Documented by: Pantoprazole Sodium 40 mg/ (Sodium Chloride) 10 mls @ 300 mls/hr IV DAILY [facility] Last Admin: 08/01/21 08:31 Dose: 300 mls/hr Documented by: Levothyroxine Sodium (Levothyroxine 75 Mcg Tab) 75 mcg PO ACBREAKFAST [facility] Last Admin: 08/01/21 06:51 Dose: 75 mcg Documented by: Loperamide HCl (Loperamide 2 Mg Cap) 2 mg PO DAILY [facility] Melatonin (Melatonin 3 Mg Tab) 3 mg PO BEDTIME PRN PRN Reason: Insomnia Last Admin: 07/31/21 21:54 Dose: 3 mg Documented by: Midodrine (Midodrine 5 Mg Tab) 2.5 mg PO TIDAC [facility] Last Admin: 08/01/21 06:51 Dose: 2.5 mg Documented by: Mirtazapine (Mirtazapine 15 Mg Tab) 15 mg PO BEDTIME [facility] Last Admin: 07/31/21 21:54 Dose: 15 mg Documented by: Ondansetron HCl (Ondansetron 4 Mg/2 Ml Sdv) 4 mg IVPUSH Q4H PRN PRN Reason: Nausea/Vomiting Ondansetron HCl (Ondansetron 4 Mg Tab.Dis) 4 mg PO TIDAC PRN PRN Reason: Nausea Dronabinol 2.5 Mg (Cap) 1 each PO DAILY [facility] Last Admin: 08/01/21 08:32 Dose: 1 each Documented by: Rivaroxaban (Rivaroxaban 10 Mg Tab) 10 mg PO DAILY [facility] Rosuvastatin Calcium (Rosuvastatin 10 Mg Tab) 20 mg PO DAILY [facility] Sertraline HCl (Sertraline 100 Mg Tab) 100 mg PO DAILY [facility] Last Admin: 08/01/21 08:32 Dose: 100 mg Documented by: Discontinued Medications Non-Formulary Medication (Melatonin [Melatonin]) 2 mg PO BEDTIME [facility]IRGEN Potassium Chloride (Potassium Chloride 10% 20 Meq/15 Ml Soln 30 Ml Ud Cup) 40 meq PO ONETIME ONE Stop: 07/31/21 17:12 Last Admin: 07/31/21 18:00 Dose: 40 meq Documented by: - Exam Quality Assessment: No: Supplemental Oxygen General: Alert, Oriented, Cooperative HEENT: Pupils Equal, Pupils Reactive, Mucous Membr. Moist/[place] Neck: Supple, Trachea Midline Lungs: Clear to Auscultation, Normal Respiratory Effort Cardiovascular: Regular Rate, Regular Rhythm GI/Abdominal Exam: Normal Bowel Sounds, Soft, Non-Tender, Other (ileostomy present. c/d/i) Back Exam: Normal Inspection Extremities: Normal Inspection, No Pedal Edema. No: Lalit's Sign Peripheral Pulses: 2+: Dorsalis Pedis (L), Dorsalis Pedis (R) Skin: Other (varicose veins) Neurological: No New Focal Deficit - Patient Data Lab Results Last 24 hrs: Laboratory Results - last 24 hr 08/01/21 08/01/21 Range/Units 05:25 05:25 WBC 5.56 (4.0-11.0) K/uL RBC 2.79 L (4.30-5.90) M/uL Hgb 8.7 L (12.0-16.0) g/dL Hct 26.3 L (36.0-46.0) % MCV 94.3 (80.0-98.0) fL MCH 31.2 (27.0-32.0) pg MCHC 33.1 (31.0-37.0) g/dL RDW Std Deviation 54.8 (28.0-62.0) fl RDW Coeff of Sofia 16 H (11.0-15.0) % Plt Count 161 (150-400) K/uL MPV 10.00 (7.40-12.00) fL Neut % (Auto) 65.8 (48.0-80.0) % Lymph % (Auto) 24.8 (16.0-40.0) % [place] % (Auto) 8.3 (0.0-15.0) % Eos % (Auto) 0.7 (0.0-7.0) % Baso % (Auto) 0.4 (0.0-1.5) % Neut # (Auto) 3.7 (1.4-5.7) K/uL Lymph # (Auto) 1.4 (0.6-2.4) K/uL [place] # (Auto) 0.5 (0.0-0.8) K/uL Eos # (Auto) 0.0 (0.0-0.7) K/uL Baso # (Auto) 0.0 (0.0-0.1) K/uL Nucleated RBC % 0.0 /100WBC Nucleated RBCs # 0 K/uL Sodium 136 (136-145) mmol/L Potassium 3.7 (3.5-5.1) mmol/L Chloride 107 (98-107) mmol/L Carbon Dioxide 16.5 L (21.0-32.0) mmol/L BUN 29 H (7.0-18.0) mg/dL Creatinine 1.5 H (0.6-1.0) mg/dL Est Cr Clr Drug Dosing 18.11 mL/min Estimated GFR (MDRD) 33.3 ml/min Glucose 86 (74-106) mg/dL Calcium 7.8 L (8.5-10.1) mg/dL Phosphorus 3.1 (2.6-4.7) mg/dL Magnesium 2.0 (1.8-2.4) mg/dL Result Diagrams: 08/01/21 05:25 08/01/21 05:25 Sepsis Event Note - Evaluation Sepsis Screening Result: No Definite Risk - Focused Exam Vital Signs: Vital Signs Temp Pulse Resp BP Pulse Ox 08/01/21 08:40 98.1 F 63 16 101/59 L 96 08/01/21 03:53 96.9 F 66 16 100/57 L 96 08/01/21 00:00 97.9 F 70 17 103/60 97 - Problem List & Annotations (1) Acute kidney injury SNOMED Code(s): 59018559, 80889195 Code(s): N17.9 - ACUTE KIDNEY FAILURE, UNSPECIFIED Status: Acute (2) Dehydration SNOMED Code(s): 03259593 Code(s): E86.0 - DEHYDRATION Status: Acute (3) Lab test positive for detection of COVID-19 virus SNOMED Code(s): 9468079920688225 Code(s): U07.1 - COVID-19 Status: Acute - Problem List Review Problem List Initiated/Reviewed/Updated: Yes - My Orders Last 24 Hours: My Active Orders 08/01/21 Breakfast Regular Diet [DIET] 08/01/21 10:37 Code Status [Resuscitation Status] Routine - Plan Plan:: 80-year-old female admitted for RUFINO and dehydration. -Continue LR at 125ml/hr. Daily BMP. -IV Zofran for nausea vomiting. IV pantoprazole. -Continue colostomy care. -Physical therapy following. -Avoid nephrotoxic meds. -Spoke with patients daughter Shelbie, who stated the patients surgeon was called and he recommended <1500ml output daily for her ileostomy and recommended otc anti-diarrheal rx to assist. -Recommend IV infusions upon discharge on outpatient basis to prevent r eadmission. CODE STATUS: DNR/DNI - discussed with patient and her daughter who confirmed DNR/DNI. <Derik Smith - Last Filed: 08/06/21 13:21> - General Info Subjective Update: I have seen and evaluated the patient and agree with the residents note unless specified in my note - Patient Data Vitals - Most Recent: Last Vital Signs Temp 36.2 C 08/02/21 12:00 Pulse 62 08/02/21 12:00 Resp 16 08/02/21 12:00 BP 93/55 L 08/02/21 12:00 Pulse Ox 88 L 08/02/21 12:00 Med Orders - Current: Current Medications Discontinued Medications Acetaminophen (Acetaminophen 325 Mg Tab) 650 mg PO Q4H PRN PRN Reason: Pain/Fever Last Admin: 08/01/21 16:50 Dose: 650 mg Documented by: Albuterol/Ipratropium (Albuterol/Ipratropium 3.0-0.5 Mg/3 Ml Neb Soln) 3 ml NEB Q4HRRT PRN PRN Reason: Shortness Of Breath/wheezing Folic Acid (Folic Acid 1 Mg Tab) 1 mg PO DAILY [facility] Last Admin: 08/02/21 10:04 Dose: 1 mg Documented by: Lactated Ringer's (Ringers, Lactated) 1,000 mls @ 125 mls/hr IV Q8H [facility] Last Admin: 08/02/21 15:15 Dose: Not Given Documented by: Pantoprazole Sodium 40 mg/ (Sodium Chloride) 10 mls @ 300 mls/hr IV DAILY [facility] Last Admin: 08/02/21 10:02 Dose: 300 mls/hr Documented by: Levothyroxine Sodium (Levothyroxine 75 Mcg Tab) 75 mcg PO ACBREAKFAST [facility] Last Admin: 08/02/21 07:02 Dose: 75 mcg Documented by: Loperamide HCl (Loperamide 2 Mg Cap) 2 mg PO DAILY [facility] Last Admin: 08/02/21 10:04 Dose: 2 mg Documented by: Melatonin (Melatonin 3 Mg Tab) 3 mg PO BEDTIME PRN PRN Reason: Insomnia Last Admin: 08/01/21 20:46 Dose: 3 mg Documented by: Midodrine (Midodrine 5 Mg Tab) 2.5 mg PO TIDAC [facility] Last Admin: 08/02/21 15:16 Dose: Not Given Documented by: Mirtazapine (Mirtazapine 15 Mg Tab) 15 mg PO BEDTIME [facility] Last Admin: 08/01/21 20:34 Dose: 15 mg Documented by: Non-Formulary Medication (Melatonin [Melatonin]) 2 mg PO BEDTIME [facility] Ondansetron HCl (Ondansetron 4 Mg/2 Ml Sdv) 4 mg IVPUSH Q4H PRN PRN Reason: Nausea/Vomiting Ondansetron HCl (Ondansetron 4 Mg Tab.Dis) 4 mg PO TIDAC PRN PRN Reason: Nausea Dronabinol 2.5 Mg (Cap) 1 each PO DAILY [facility] Last Admin: 08/02/21 10:06 Dose: 1 each Documented by: Potassium Chloride (Potassium Chloride 10% 20 Meq/15 Ml Soln 30 Ml Ud Cup) 40 meq PO ONETIME ONE Stop: 07/31/21 17:12 Last Admin: 07/31/21 18:00 Dose: 40 meq Documented by: Rivaroxaban (Rivaroxaban 10 Mg Tab) 10 mg PO DAILY [facility] Last Admin: 08/02/21 10:04 Dose: 10 mg Documented by: Rosuvastatin Calcium (Rosuvastatin 10 Mg Tab) 20 mg PO DAILY [facility] Last Admin: 08/02/21 10:02 Dose: 20 mg Documented by: Sertraline HCl (Sertraline 100 Mg Tab) 100 mg PO DAILY [facility] Last Admin: 08/02/21 10:04 Dose: 100 mg Documented by: - Patient Data Result Diagrams: 10/27/21 05:25 08/02/21 09:10 - Problem List & Annotations (1) Acute kidney injury SNOMED Code(s): 84775188, 31613237 Code(s): N17.9 - ACUTE KIDNEY FAILURE, UNSPECIFIED Status: Acute (2) Dehydration SNOMED Code(s): 30741891 Code(s): E86.0 - DEHYDRATION Status: Acute (3) Patient underweight SNOMED Code(s): 617163866 Code(s): R63.6 - UNDERWEIGHT Status: Acute
[2021-08-01] MEDS: Rosuvastatin 10 MG Tab PO SCH (11:29)
[2021-08-01] MEDS: Rivaroxaban 10 MG Tab PO SCH (11:29)
[2021-08-01] MEDS: Loperamide 2 MG Cap PO SCH (11:29)
[2021-08-01] MEDS: Acetaminophen 325 MG Tab PO PRN (16:50)
[2021-08-01] MEDS: Mirtazapine 15 MG Tab PO SCH (20:34)
[2021-08-01] MEDS: Melatonin 3 MG Tab PO PRN (20:46)
[2021-08-02] MEDS: Lactated Ringers 1,000 ML IV SCH ×2 (05:44→15:15)
[2021-08-02] MEDS: Levothyroxine 75 MCG Tab PO SCH (07:02)
[2021-08-02] MEDS: Midodrine 5 MG Tab PO SCH ×2 (07:02→15:16)
[2021-08-02 08:57] VITALS: PULSE 62
[2021-08-02] MEDS: Pantoprazole 40 MG in Sodium Chloride 0.9% 10 ML IV SCH (10:02)
[2021-08-02] MEDS: Rosuvastatin 10 MG Tab PO SCH (10:02)
[2021-08-02] MEDS: Folic Acid 1 MG Tab PO SCH (10:04)
[2021-08-02] MEDS: Loperamide 2 MG Cap PO SCH (10:04)
[2021-08-02] MEDS: Rivaroxaban 10 MG Tab PO SCH (10:04)
[2021-08-02] MEDS: Sertraline 100 MG Tab PO SCH (10:04)
[2021-08-02] MEDS: Dronabinol 2.5 MG Cap PO SCH (10:06)
[2021-08-02 10:07] LABS: CARBON DIOXIDE,CO2 18.4 mmol/L (21.0-32.0); POTASSIUM,K 3.7 mmol/L (3.5-5.1)
--- NOTE | 2021-08-02 12:28 | PCM.DCSUM1 ---
<Leigha Anders - Last Filed: 08/02/21 19:13> Discharge Summary - Hospital Course Free Text/Narrative:: 80-year-old woman with a past medical history of volvulus status post partial colectomy, history of DVTs , on Xarelto, history of hypertension on 2.5 mg TID midodrine with multiple recent admissions, most recently's 07/17/2021 for dehydration was admitted to the hospital after she was seen in clinic and noted to be dehydrated and RUFINO. Patient was sent to hospital as a direct admit due to fatigue, decreased appetite and worsening kidney function, patient states fatigue, generalized weakness. Patient states that she has been losing weight progressively and does not really even drink much. As per family, her surgeon believes she is losing too much fluid via ileostomy. She was advised to take antidiarrheal [id number] to help reduce output to less than 1300 mL daily. Patient was admitted and given IV fluids. Kidney function improved. Patient tested positive for Covid on 07/31. Her has had COVID and they live together. Patient was asymptomatic and did not require oxygen or treatment for Covid. She remained on room air. Today on discharge patient had stable vital signs. At bedside, her oxygen was checked and was 92%. Sodium 136. Potassium 3.7. BUN 21. Creatinine 1.2. Patient states eating appropriately, denies chest pain, shortness of breath, dizziness, headaches. It is advised that the patient receive 1 L boluses every 3 days at the infusion center to avoid dehydration and RUFINO. This is to be done for the next 10 days. Plan was discussed with patient's daughter Shelbie. Family advised to seek further recommendations regarding fluids and hydration status with PCP. - Discharge Data Discharge Date: 08/02/21 Discharge Disposition: Home, W Home Health Agency 06 Condition: Good - Referral to Home Health Primary Care Physician: PCP None - Discharge Diagnosis/Problem(s) (1) Acute kidney injury SNOMED Code(s): 12308798, [id number] ICD Code: N17.9 - ACUTE KIDNEY FAILURE, UNSPECIFIED Status: Acute (2) Dehydration SNOMED Code(s): 10976968 ICD Code: E86.0 - DEHYDRATION Status: Acute (3) Lab test positive for detection of COVID-19 virus SNOMED Code(s): 7724535585075353 ICD Code: U07.1 - COVID-19 Status: Acute - Patient Summary/Data Consults: Consultations 07/31/21 17:12 PT Evaluation and Treatment [CONS] Routine 08/02/21 09:25 Consult to Home Care [Consult to Home Health] [CONS] Routine - Patient Instructions Diet: Usual Diet as Tolerated Activity: As Tolerated Notify Provider of: Fever, Increased Pain, Swelling and Redness Other/Special Instructions: You were admitted for dehydration causing kidney injury. It is very important to stay hydrated and drink plenty of water every day. If you experience chest pain, palpitations, shortness of breath, lightheadedness, loss of consciousness, parched mouth, please seek medical attention immediately. It is recommended you go to the infusion center every 3 days to have your self hydrated with IV fluids (for next 10 days) when you are not getting enough oral hydration. You have been given a prescription for IV fluids. Please follow-up with your primary care doctor for continued prescriptions for fluids to be given at the infusion center. - Discharge Plan *PRESCRIPTION DRUG MONITORING PROGRAM REVIEWED*: Not Applicable *COPY OF PRESCRIPTION DRUG MONITORING REPORT IN PATIENT CEFERINO: Not Applicable Prescriptions/Med Rec: Lactated Ringers [Ringers, Lactated] 1,000 ml IV WEEKLY PRN #4 bag PRN Reason: dehydration Home Medications: Home Meds Melatonin 2 mg PO BEDTIME 07/02/21 [History] Ondansetron [Zofran ODT] 1 tab PO TIDAC PRN 07/02/21 [History] Rosuvastatin [Crestor] 20 mg PO DAILY 07/02/21 [History] Sertraline [Zoloft] 100 mg PO DAILY 07/02/21 [History] Levothyroxine 75 mcg PO ACBREAKFAST 07/03/21 [History] Folic Acid 1 mg PO DAILY #14 tablet 07/06/21 [Rx] Midodrine 2.5 mg PO TIDAC #63 tablet 07/06/21 [Rx] dronabinoL [Dronabinol] 2.5 mg PO DAILY #16 capsule 07/06/21 [Rx] Mirtazapine [Remeron] 15 mg PO BEDTIME 07/17/21 [History] Rivaroxaban [Xarelto] 10 mg PO DAILY #7 tab 07/19/21 [Rx] Loperamide [Imodium AD] 1 tab PO DAILY 07/31/21 [History] Lactated Ringers [Ringers, Lactated] 1,000 ml IV WEEKLY PRN #4 bag 08/02/21 [Rx] Patient Handouts: Fatigue, Weakness, [id number], Dehydration, Elderly, [id number] Referrals: Milady Keller PA [Physician Advertising Clerk] - 08/10/21 9:00 am - Discharge Summary/Plan Comment DC Time >30 min.: Yes Total # of Minutes for Discharge Time: 45 - Review of Systems General: Denies: Fever, Chills HEENT: Denies: Headaches Pulmonary: Denies: Shortness of Breath, Pleuritic Chest Pain, Cough Cardiovascular: Denies: Chest Pain, Palpitations, Edema Gastrointestinal: Denies: Abdominal Pain, Nausea, Vomiting Genitourinary: Denies: Dysuria Musculoskeletal: Denies: Leg Pain Skin: Denies: Cyanosis Neurological: Denies: Confusion, Dizziness, Headache, Numbness, Paresthesia - Patient Data Vitals - Most Recent: Last Vital Signs Temp 97.2 F 08/02/21 08:57 Pulse 62 08/02/21 08:57 Resp 16 08/02/21 08:57 BP 99/57 L 08/02/21 08:57 Pulse Ox 88 L 08/02/21 08:57 Weight - Most Recent: 39.009 kg I&O - Last 24 hours: Intake & Output 08/01/21 08/02/21 08/02/21 22:59 06:59 14:59 Intake Total 600 1396 Output Total 500 1050 Balance 100 346 Lab Results - Last 24 hrs: Laboratory Results - last 24 hr 08/02/21 Range/Units 09:10 Sodium 136 (136-145) mmol/L Potassium 3.7 (3.5-5.1) mmol/L Chloride 104 (98-107) mmol/L Carbon Dioxide 18.4 L (21.0-32.0) mmol/L BUN 21 H (7.0-18.0) mg/dL Creatinine 1.2 H (0.6-1.0) mg/dL Est Cr Clr Drug Dosing 22.64 mL/min Estimated GFR (MDRD) 43.1 ml/min Glucose 107 H (74-106) mg/dL Calcium 8.4 L (8.5-10.1) mg/dL Med Orders - Current: Current Medications Acetaminophen (Acetaminophen 325 Mg Tab) 650 mg PO Q4H PRN PRN Reason: Pain/Fever Last Admin: 08/01/21 16:50 Dose: 650 mg Documented by: Albuterol/Ipratropium (Albuterol/Ipratropium 3.0-0.5 Mg/3 Ml Neb Soln) 3 ml NEB Q4HRRT PRN PRN Reason: Shortness Of Breath/wheezing Folic Acid (Folic Acid 1 Mg Tab) 1 mg PO DAILY [facility] Last Admin: 08/02/21 10:04 Dose: 1 mg Documented by: Lactated Ringer's (Ringers, Lactated) 1,000 mls @ 125 mls/hr IV Q8H [facility] Last Admin: 08/02/21 05:44 Dose: 125 mls/hr Documented by: Pantoprazole Sodium 40 mg/ (Sodium Chloride) 10 mls @ 300 mls/hr IV DAILY [facility] Last Admin: 08/02/21 10:02 Dose: 300 mls/hr Documented by: Levothyroxine Sodium (Levothyroxine 75 Mcg Tab) 75 mcg PO ACBREAKFAST [facility] Last Admin: 08/02/21 07:02 Dose: 75 mcg Documented by: Loperamide HCl (Loperamide 2 Mg Cap) 2 mg PO DAILY [facility] Last Admin: 08/02/21 10:04 Dose: 2 mg Documented by: Melatonin (Melatonin 3 Mg Tab) 3 mg PO BEDTIME PRN PRN Reason: Insomnia Last Admin: 08/01/21 20:46 Dose: 3 mg Documented by: Midodrine (Midodrine 5 Mg Tab) 2.5 mg PO TIDAC [facility] Last Admin: 08/02/21 07:02 Dose: 2.5 mg Documented by: Mirtazapine (Mirtazapine 15 Mg Tab) 15 mg PO BEDTIME [facility] Last Admin: 08/01/21 20:34 Dose: 15 mg Documented by: Ondansetron HCl (Ondansetron 4 Mg/2 Ml Sdv) 4 mg IVPUSH Q4H PRN PRN Reason: Nausea/Vomiting Ondansetron HCl (Ondansetron 4 Mg Tab.Dis) 4 mg PO TIDAC PRN PRN Reason: Nausea Dronabinol 2.5 Mg (Cap) 1 each PO DAILY [facility] Last Admin: 08/02/21 10:06 Dose: 1 each Documented by: Rivaroxaban (Rivaroxaban 10 Mg Tab) 10 mg PO DAILY [facility] Last Admin: 08/02/21 10:04 Dose: 10 mg Documented by: Rosuvastatin Calcium (Rosuvastatin 10 Mg Tab) 20 mg PO DAILY [facility] Last Admin: 08/02/21 10:02 Dose: 20 mg Documented by: Sertraline HCl (Sertraline 100 Mg Tab) 100 mg PO DAILY [facility] Last Admin: 08/02/21 10:04 Dose: 100 mg Documented by: Discontinued Medications Non-Formulary Medication (Melatonin [Melatonin]) 2 mg PO BEDTIME [facility] Potassium Chloride (Potassium Chloride 10% 20 Meq/15 Ml Soln 30 Ml Ud Cup) 40 meq PO ONETIME ONE Stop: 07/31/21 17:12 Last Admin: 07/31/21 18:00 Dose: 40 meq Documented by: - Exam General: Reports: Alert, Oriented, No Acute Distress HEENT: Reports: Pupils Equal, Pupils Reactive, Mucous Membr. Moist/[place] Neck: Reports: Supple, Trachea Midline Lungs: Reports: Clear to Auscultation Cardiovascular: Reports: Regular Rate, Regular Rhythm GI/Abdominal Exam: Normal Bowel Sounds, Soft, Non-Tender Back Exam: Reports: Normal Inspection Extremities: Normal Inspection, No Pedal Edema. No: Lalit's Sign Skin: Reports: Warm, Dry, Intact Neurological: Reports: No New Focal Deficit <Derik Smith - Last Filed: 08/06/21 13:19> Discharge Summary - Hospital Course Free Text/Narrative:: I have seen and evaluated the patient and agree with the residents note unless specified in my note - Referral to Home Health Date of Face to Face Encounter: 08/06/21 Reason for Homebound Status: unsteady while walking, fall risk Primary Care Physician: PCP None Skilled Need: RN to monitor regarding recent exacerbation. - Discharge Diagnosis/Problem(s) (1) Acute kidney injury SNOMED Code(s): 33869866, [id number] ICD Code: N17.9 - ACUTE KIDNEY FAILURE, UNSPECIFIED Status: Acute (2) Dehydration SNOMED Code(s): 21594787 ICD Code: E86.0 - DEHYDRATION Status: Acute (3) Patient underweight SNOMED Code(s): 895537728 ICD Code: R63.6 - UNDERWEIGHT Status: Acute - Patient Summary/Data Consults: Consultations 07/31/21 17:12 PT Evaluation and Treatment [CONS] Routine 08/02/21 09:25 Consult to Home Care [Consult to Home Health] [CONS] Routine - Discharge Plan *PRESCRIPTION DRUG MONITORING PROGRAM REVIEWED*: Not Applicable *COPY OF PRESCRIPTION DRUG MONITORING REPORT IN PATIENT CEFERINO: Not Applicable - Discharge Summary/Plan Comment DC Time >30 min.: Yes - Patient Data Vitals - Most Recent: Last Vital Signs Temp 36.2 C 08/02/21 12:00 Pulse 62 08/02/21 12:00 Resp 16 08/02/21 12:00 BP 93/55 L 08/02/21 12:00 Pulse Ox 88 L 08/02/21 12:00 Med Orders - Current: Current Medications Discontinued Medications Acetaminophen (Acetaminophen 325 Mg Tab) 650 mg PO Q4H PRN PRN Reason: Pain/Fever Last Admin: 08/01/21 16:50 Dose: 650 mg Documented by: Albuterol/Ipratropium (Albuterol/Ipratropium 3.0-0.5 Mg/3 Ml Neb Soln) 3 ml NEB Q4HRRT PRN PRN Reason: Shortness Of Breath/wheezing Folic Acid (Folic Acid 1 Mg Tab) 1 mg PO DAILY [facility] Last Admin: 08/02/21 10:04 Dose: 1 mg Documented by: Lactated Ringer's (Ringers, Lactated) 1,000 mls @ 125 mls/hr IV Q8H [facility] Last Admin: 08/02/21 15:15 Dose: Not Given Documented by: Pantoprazole Sodium 40 mg/ (Sodium Chloride) 10 mls @ 300 mls/hr IV DAILY [facility] Last Admin: 08/02/21 10:02 Dose: 300 mls/hr Documented by: Levothyroxine Sodium (Levothyroxine 75 Mcg Tab) 75 mcg PO ACBREAKFAST [facility] Last Admin: 08/02/21 07:02 Dose: 75 mcg Documented by: Loperamide HCl (Loperamide 2 Mg Cap) 2 mg PO DAILY [facility] Last Admin: 08/02/21 10:04 Dose: 2 mg Documented by: Melatonin (Melatonin 3 Mg Tab) 3 mg PO BEDTIME PRN PRN Reason: Insomnia Last Admin: 08/01/21 20:46 Dose: 3 mg Documented by: Midodrine (Midodrine 5 Mg Tab) 2.5 mg PO TIDAC [facility] Last Admin: 08/02/21 15:16 Dose: Not Given Documented by: Mirtazapine (Mirtazapine 15 Mg Tab) 15 mg PO BEDTIME [facility] Last Admin: 08/01/21 20:34 Dose: 15 mg Documented by: Non-Formulary Medication (Melatonin [Melatonin]) 2 mg PO BEDTIME [facility] Ondansetron HCl (Ondansetron 4 Mg/2 Ml Sdv) 4 mg IVPUSH Q4H PRN PRN Reason: Nausea/Vomiting Ondansetron HCl (Ondansetron 4 Mg Tab.Dis) 4 mg PO TIDAC PRN PRN Reason: Nausea Dronabinol 2.5 Mg (Cap) 1 each PO DAILY [facility] Last Admin: 08/02/21 10:06 Dose: 1 each Documented by: Potassium Chloride (Potassium Chloride 10% 20 Meq/15 Ml Soln 30 Ml Ud Cup) 40 meq PO ONETIME ONE Stop: 07/31/21 17:12 Last Admin: 07/31/21 18:00 Dose: 40 meq Documented by: Rivaroxaban (Rivaroxaban 10 Mg Tab) 10 mg PO DAILY [facility] Last Admin: 08/02/21 10:04 Dose: 10 mg Documented by: Rosuvastatin Calcium (Rosuvastatin 10 Mg Tab) 20 mg PO DAILY [facility] Last Admin: 08/02/21 10:02 Dose: 20 mg Documented by: Sertraline HCl (Sertraline 100 Mg Tab) 100 mg PO DAILY [facility] Last Admin: 08/02/21 10:04 Dose: 100 mg Documented by:
[2021-08-02 14:36] VITALS: BP 93/55
== END 2021-08-02 15:00 | disposition home health service (06) ==
LOC: MW.MS 15:11
PROVIDERS: ADMIT Student in an Organized Health Care Education/Training Program; ATTEND Student in an Organized Health Care Education/Training Program
DX: N17.9 Acute kidney failure, unspecified (principal); E86.0 Dehydration; U07.1 COVID-19; I10 Essential (primary) hypertension; E78.00 Pure hypercholesterolemia, unspecified; E03.9 Hypothyroidism, unspecified; R63.6 Underweight; Z79.890 Hormone replacement therapy; Z90.49 Acquired absence of other specified parts of digestive tract; Z98.890 Other specified postprocedural states; Z93.2 Ileostomy status; Z79.899 Other long term (current) drug therapy; Z79.01 Long term (current) use of anticoagulants
CPT/HCPCS: 36415; 80048; 83735; 84100; 85025; 97161; A9270; C9113; J7120

== ENCOUNTER 2022-12-16 17:25 | Emergency (ER) | payer MEDICARE, BC ==
[2022-12-16] MEDS ORDERED: Sodium Chloride 0.9% 2.5 ML Syringe FLUSH PRN (17:33)
[2022-12-16] MEDS ORDERED: Sodium Chloride 0.9% 10 ML Syringe FLUSH PRN (17:33)
[2022-12-16] MEDS ORDERED: Sodium Chloride 0.9% 1,000 ML IV STA (18:12)
[2022-12-16] MEDS ORDERED: Ondansetron 4 MG/2 ML SDV IVPUSH STA (18:12)
[2022-12-16 19:16] LABS: BLOOD UREA NITROGEN,BUN 40 mg/dL (7.0-18.0); CARBON DIOXIDE,CO2 20.8 mmol/L (21.0-32.0); CHLORIDE,CL 111 mmol/L (98-107); GLUCOSE RANDOM 96 mg/dL (74-106); SODIUM,NA 141 mmol/L (136-145)
[2022-12-16 19:18] LABS: CORONAVIRUS COVID-19 NAA NEGATIVE (NEGATIVE)
[2022-12-16 19:18] LABS: ESTIMATED GFR 28 mL/min (>60)
[2022-12-16] MEDS ORDERED: Midodrine 5 MG Tab PO STA (20:29)
[2022-12-16 20:46] LABS: INFLUENZA A NAA NEGATIVE (NEGATIVE); INFLUENZA B NAA NEGATIVE (NEGATIVE)
[2022-12-16 21:26] VITALS: BP 92/55
[2022-12-16 22:27] VITALS: PULSE 64
== END 2022-12-16 22:05 | disposition home or self-care (01) ==
LOC: MW.ED 17:25
DX: I95.9 Hypotension, unspecified (principal); R55 Syncope and collapse; N30.00 Acute cystitis without hematuria; N18.4 Chronic kidney disease, stage 4 (severe); E03.9 Hypothyroidism, unspecified; E78.00 Pure hypercholesterolemia, unspecified; Z93.2 Ileostomy status; Z79.01 Long term (current) use of anticoagulants; Z86.711 Personal history of pulmonary embolism; Z20.822 Contact with and (suspected) exposure to COVID-19; Z79.899 Other long term (current) drug therapy
CPT/HCPCS: 0240U; 36415; 70450; 71045; 74176; 80053; 81001; 83735; 84443; 85025; 87086; 93005; 96360; 99285; A9270; J3490; J7030; 93010

== ENCOUNTER 2023-12-23 16:20 | Emergency (ER) | payer MEDICARE, BC ==
[2023-12-23] MEDS: Sodium Chloride 0.9% 2.5 ML Syringe FLUSH PRN (16:35)
[2023-12-23] MEDS: Sodium Chloride 0.9% 10 ML Syringe FLUSH PRN (16:35)
[2023-12-23 16:40] LABS: BASOPHILS ABSOLUTE AUTO 0.02 K/uL (0.00-0.20); BASOPHILS PERCENT AUTO 0.2 % (0.0-1.0); EOSINOPHILS ABSOLUTE AUTO 0.01 K/uL (0.00-0.45); EOSINOPHILS PERCENT AUTO 0.1 % (0.0-6.0); HEMOGLOBIN 10.3 g/dL (12.0-16.0); IMMATURE GRAN ABSOLUTE AUTO 0.05 K/uL (0.00-0.05); IMMATURE GRAN PERCENT AUTO 0.4 % (0.0-0.4); LYMPHOCYTES ABSOLUTE AUTO 1.18 K/uL (1.00-4.80); LYMPHOCYTES PERCENT AUTO 9.2 % (24.0-44.0); MEAN CORPUSCULAR HEMOGLOBIN 33.6 pg (28.0-32.0); MEAN CORPUSCULAR HGB CONC 32.2 g/dL (32.0-36.0); MEAN CORPUSCULAR VOLUME 104.2 fL (83.0-99.0); MEAN PLATELET VOLUME 11.2 fL (9.4-12.3); MONOCYTES PERCENT AUTO 4.7 % (0.0-8.0); NEUTROPHILS ABSOLUTE AUTO 10.95 K/uL (1.80-7.70); NEUTROPHILS PERCENT AUTO 85.4 % (41.0-71.0); PLATELET COUNT,PLT 110 K/uL (150-400); RED BLOOD CELL COUNT 3.07 M/uL (4.10-5.30); WHITE BLOOD CELL COUNT,WBC 12.81 K/uL (3.9-11.3)
[2023-12-23 17:05] LABS: INR 1.53 (0.86-1.11); PTT,PARTIAL THROMBOPLSTIN TIME 32.5 SEC (23.9-30.7)
[2023-12-23 17:11] LABS: A/G RATIO 1.2 (0.9-1.6); ALANINE AMINOTRANSFERASE,ALT 66 IU/L (14-63); ALBUMIN 3.5 g/dL (3.4-5.0); ALKALINE PHOSPHATASE 77 U/L (46-116); ASPARTATE AMNIOTRANSFERASE,AST 36 IU/L (15-37); BILIRUBIN TOTAL 0.6 mg/dL (0.2-1.0); BLOOD UREA NITROGEN,BUN 26 mg/dL (7.0-18.0); CALCIUM 9.1 mg/dL (8.5-10.1); CARBON DIOXIDE,CO2 23.6 mmol/L (21.0-32.0); CHLORIDE,CL 107 mmol/L (98-107); CREATININE 1.6 mg/dL (0.6-1.0); GLUCOSE RANDOM 103 mg/dL (74-106); LIPASE 27 U/L (16-77); POTASSIUM,K 4.2 mmol/L (3.5-5.1); PROTEIN TOTAL,TP 6.5 g/dL (6.4-8.2); SODIUM,NA 139 mmol/L (136-145)
[2023-12-23 17:12] LABS: ESTIMATED GFR 32 mL/min (>60)
[2023-12-23 17:14] LABS: MAGNESIUM 1.8 mg/dL (1.8-2.4)
[2023-12-23 18:07] LABS: BILIRUBIN,URINE NEGATIVE (NEGATIVE); COLOR,URINE YELLOW; GLUCOSE,URINE NEGATIVE (NEGATIVE); KETONES,URINE NEGATIVE (NEGATIVE); LEUKOCYTE ESTERASE,URINE SMALL (NEGATIVE); NITRITE,URINE NEGATIVE (NEGATIVE); OCCULT BLOOD,URINE NEGATIVE (NEGATIVE); PH,URINE 5.5 (5.0-8.0); PROTEIN,URINE NEGATIVE (NEGATIVE); UROBILINOGEN,URINE 0.2 EU/dL (<2.0)
[2023-12-23 18:21] LABS: APPEARANCE,URINE HAZY
[2023-12-23 18:24] LABS: CORONAVIRUS COVID-19 NAA NEGATIVE (NEGATIVE); INFLUENZA A NAA NEGATIVE (NEGATIVE); INFLUENZA B NAA NEGATIVE (NEGATIVE); RESPIRATORY SYNCYTIAL VIR NAA NEGATIVE (NEGATIVE)
[2023-12-23 18:36] LABS: BACTERIA,URINE FEW (NEGATIVE); EPITHELIAL CELLS,URINE FEW (NONE-FEW); MUCUS,URINE MODERATE (NONE-MOD); RBC,URINE 0-1 (0-2/HPF)
[2023-12-23 19:15] VITALS: BP 104/53; PULSE 71
== END 2023-12-23 19:14 | disposition home or self-care (01) ==
LOC: MW.ED 16:20
DX: J18.9 Pneumonia, unspecified organism (principal); E03.9 Hypothyroidism, unspecified; Z75.8 Other problems related to medical facilities and other health care; Z86.19 Personal history of other infectious and parasitic diseases; Z90.49 Acquired absence of other specified parts of digestive tract; Z79.899 Other long term (current) drug therapy
CPT/HCPCS: 0241U; 36415; 71045; 80053; 81001; 83690; 83735; 84484; 85025; 85610; 85730; 87086; 93005; 99285; J3490; 93010; 99283

== ENCOUNTER 2023-12-29 06:49 | Inpatient (IN) | payer MEDICARE, BC ==
[2023-12-29] MEDS: Acetaminophen 500 MG Tab PO ONE (07:55)
[2023-12-29] MEDS: Sodium Chloride 0.9% 10 ML Syringe FLUSH PRN (07:56)
[2023-12-29] MEDS: Sodium Chloride 0.9% 2.5 ML Syringe FLUSH PRN (07:56)
[2023-12-29] MEDS: Sodium Chloride 0.9% 500 ML IV SCH (07:56)
[2023-12-29 08:21] LABS: HEMATOCRIT 30.5 % (37.0-47.0); HEMOGLOBIN 9.6 g/dL (12.0-16.0); MEAN CORPUSCULAR HEMOGLOBIN 33.2 pg (28.0-32.0); MEAN CORPUSCULAR HGB CONC 31.5 g/dL (32.0-36.0); MEAN CORPUSCULAR VOLUME 105.5 fL (83.0-99.0); MEAN PLATELET VOLUME 10.4 fL (9.4-12.3); PLATELET COUNT,PLT 151 K/uL (150-400); RED BLOOD CELL COUNT 2.89 M/uL (4.10-5.30); WHITE BLOOD CELL COUNT,WBC 7.13 K/uL (3.9-11.3)
[2023-12-29 08:49] LABS: A/G RATIO 0.9 (0.9-1.6); ALANINE AMINOTRANSFERASE,ALT 44 IU/L (14-63); ALBUMIN 2.8 g/dL (3.4-5.0); ALKALINE PHOSPHATASE 70 U/L (46-116); ASPARTATE AMNIOTRANSFERASE,AST 29 IU/L (15-37); BILIRUBIN TOTAL 0.2 mg/dL (0.2-1.0); BLOOD UREA NITROGEN,BUN 28 mg/dL (7.0-18.0); CARBON DIOXIDE,CO2 21.9 mmol/L (21.0-32.0); CHLORIDE,CL 111 mmol/L (98-107); CREATININE 1.2 mg/dL (0.6-1.0); ESTIMATED GFR 45 mL/min (>60); GLUCOSE RANDOM 92 mg/dL (74-106); POTASSIUM,K 4.2 mmol/L (3.5-5.1); PROTEIN TOTAL,TP 6.1 g/dL (6.4-8.2); SODIUM,NA 143 mmol/L (136-145)
[2023-12-29 09:16] LABS: EOSINOPHILS ABSOLUTE MAN 0.14 K/uL (0.00-0.45); EOSINOPHILS PERCENT MAN 2 % (0-6); LYMPHOCYTES ABSOLUTE MAN 1.85 K/uL (1.00-4.80); LYMPHOCYTES PERCENT MAN 26 % (24-44); MONOCYTES ABSOLUTE MAN 0.21 K/uL (0.00-0.80); MONOCYTES PERCENT MAN 3 % (0-8); SEG NEUTROPHILS ABSOLUTE MAN 4.49 K/uL (1.80-7.70); SEG NEUTROPHILS PERCENT MAN 63 % (41-71)
[2023-12-29 09:17] LABS: METAMYELOCYTE ABSOLUTE MAN 0.29; METAMYELOCYTE PERCENT MAN 4 %; MYELOCYTE ABSOLUTE MAN 0.14; MYELOCYTE PERCENT MAN 2 %
[2023-12-29] MEDS ORDERED: Polyethylene Glycol 3350 Powder 17 GM Packet PO PRN (12:32)
[2023-12-29] MEDS ORDERED: Acetaminophen/HYDROcodone 325-5 MG Tab PO PRN (12:32)
[2023-12-29] MEDS ORDERED: Ondansetron 4 MG Tab.DIS PO PRN (12:32)
[2023-12-29] MEDS ORDERED: Sennosides/Docusate Sodium 50-8.6 MG Tab PO PRN (12:32)
[2023-12-29] MEDS ORDERED: Melatonin 3 MG Tab PO SCH (12:45)
[2023-12-29] MEDS ORDERED: traMADol 50 MG Tab PO PRN (13:26)
[2023-12-29] MEDS: Pantoprazole 40 MG in Sodium Chloride 0.9% 10 ML IVPUSH SCH (13:40)
[2023-12-29] MEDS ORDERED: traMADol 50 MG Tab PO ONE (13:53)
[2023-12-29] MEDS: traMADol 50 MG Tab PO PRN ×2 (13:59→21:04)
[2023-12-29 15:28] LABS: APPEARANCE,URINE CLEAR; BILIRUBIN,URINE NEGATIVE (NEGATIVE); COLOR,URINE YELLOW; GLUCOSE,URINE NEGATIVE (NEGATIVE); KETONES,URINE NEGATIVE (NEGATIVE); LEUKOCYTE ESTERASE,URINE TRACE (NEGATIVE); NITRITE,URINE NEGATIVE (NEGATIVE); OCCULT BLOOD,URINE NEGATIVE (NEGATIVE); PROTEIN,URINE NEGATIVE (NEGATIVE); UROBILINOGEN,URINE 0.2 EU/dL (<2.0)
[2023-12-29 15:42] LABS: RBC,URINE 0-1 (0-2/HPF)
[2023-12-29 15:43] LABS: BACTERIA,URINE FEW (NEGATIVE); EPITHELIAL CELLS,URINE RARE (NONE-FEW)
[2023-12-29] MEDS: Acetaminophen 325 MG Tab PO PRN (19:52)
[2023-12-29] MEDS: Midodrine 5 MG Tab PO SCH (21:06)
[2023-12-29] MEDS: Mirtazapine 15 MG Tab PO SCH (21:08)
[2023-12-29] MEDS: Sertraline 100 MG Tab PO SCH (21:08)
[2023-12-29] MEDS: Melatonin 3 MG Tab PO SCH (21:08)
[2023-12-30 05:38] LABS: BASOPHILS ABSOLUTE AUTO 0.03 K/uL (0.00-0.20); BASOPHILS PERCENT AUTO 0.5 % (0.0-1.0); EOSINOPHILS ABSOLUTE AUTO 0.24 K/uL (0.00-0.45); EOSINOPHILS PERCENT AUTO 3.7 % (0.0-6.0); HEMATOCRIT 32.3 % (37.0-47.0); HEMOGLOBIN 10.2 g/dL (12.0-16.0); IMMATURE GRAN PERCENT AUTO 3.1 % (0.0-0.4); LYMPHOCYTES ABSOLUTE AUTO 2.02 K/uL (1.00-4.80); MEAN CORPUSCULAR HEMOGLOBIN 33.3 pg (28.0-32.0); MEAN CORPUSCULAR HGB CONC 31.6 g/dL (32.0-36.0); MEAN CORPUSCULAR VOLUME 105.6 fL (83.0-99.0); MEAN PLATELET VOLUME 9.9 fL (9.4-12.3); MONOCYTES ABSOLUTE AUTO 0.58 K/uL (0.00-0.80); MONOCYTES PERCENT AUTO 8.9 % (0.0-8.0); NEUTROPHILS ABSOLUTE AUTO 3.44 K/uL (1.80-7.70); NEUTROPHILS PERCENT AUTO 52.8 % (41.0-71.0); PLATELET COUNT,PLT 156 K/uL (150-400); RED BLOOD CELL COUNT 3.06 M/uL (4.10-5.30); WHITE BLOOD CELL COUNT,WBC 6.51 K/uL (3.9-11.3)
[2023-12-30 06:04] LABS: ALBUMIN 2.8 g/dL (3.4-5.0); BILIRUBIN TOTAL 0.3 mg/dL (0.2-1.0); CARBON DIOXIDE,CO2 23.9 mmol/L (21.0-32.0); CREATININE 1.1 mg/dL (0.6-1.0); EST CRCL DRUG DOSING (CG) 28.3 mL/min; POTASSIUM,K 4.1 mmol/L (3.5-5.1); PROTEIN TOTAL,TP 6.1 g/dL (6.4-8.2)
[2023-12-30 06:11] LABS: A/G RATIO 0.9 (0.9-1.6)
[2023-12-30] MEDS: Levothyroxine 75 MCG Tab PO SCH (07:38)
[2023-12-30] MEDS ORDERED: Rosuvastatin 10 MG Tab PO SCH (09:00)
[2023-12-30] MEDS ORDERED: Rivaroxaban 10 MG Tab PO SCH (09:00)
[2023-12-30] MEDS: Rivaroxaban 10 MG Tab PO SCH (11:14)
[2023-12-30] MEDS: Rosuvastatin 10 MG Tab PO SCH (11:14)
[2023-12-30] MEDS: Loperamide 2 MG Cap PO SCH (13:28)
[2023-12-31 07:44] LABS: BASOPHILS ABSOLUTE AUTO 0.04 K/uL (0.00-0.20); BASOPHILS PERCENT AUTO 0.6 % (0.0-1.0); EOSINOPHILS ABSOLUTE AUTO 0.38 K/uL (0.00-0.45); EOSINOPHILS PERCENT AUTO 5.4 % (0.0-6.0); HEMATOCRIT 31.8 % (37.0-47.0); HEMOGLOBIN 10.2 g/dL (12.0-16.0); IMMATURE GRAN ABSOLUTE AUTO 0.15 K/uL (0.00-0.05); IMMATURE GRAN PERCENT AUTO 2.1 % (0.0-0.4); LYMPHOCYTES PERCENT AUTO 25.4 % (24.0-44.0); MEAN CORPUSCULAR HEMOGLOBIN 33.2 pg (28.0-32.0); MEAN CORPUSCULAR HGB CONC 32.1 g/dL (32.0-36.0); MEAN CORPUSCULAR VOLUME 103.6 fL (83.0-99.0); MONOCYTES ABSOLUTE AUTO 0.54 K/uL (0.00-0.80); MONOCYTES PERCENT AUTO 7.6 % (0.0-8.0); NEUTROPHILS ABSOLUTE AUTO 4.18 K/uL (1.80-7.70); NEUTROPHILS PERCENT AUTO 58.9 % (41.0-71.0); PLATELET COUNT,PLT 174 K/uL (150-400); RED BLOOD CELL COUNT 3.07 M/uL (4.10-5.30); WHITE BLOOD CELL COUNT,WBC 7.09 K/uL (3.9-11.3)
[2023-12-31 08:09] LABS: A/G RATIO 0.9 (0.9-1.6); ALBUMIN 2.9 g/dL (3.4-5.0); BILIRUBIN TOTAL 0.4 mg/dL (0.2-1.0); CARBON DIOXIDE,CO2 24.6 mmol/L (21.0-32.0); EST CRCL DRUG DOSING (CG) 31.13 mL/min; POTASSIUM,K 4.3 mmol/L (3.5-5.1); PROTEIN TOTAL,TP 6.1 g/dL (6.4-8.2)
[2023-12-31] MEDS: cefTRIAXone 1 GM in Sodium Chloride 0.9% 50 ML IV SCH (13:41)
[2023-12-31] MEDS: Azithromycin 250 MG Tab PO SCH (13:42)
[2023-12-31] MEDS: Sodium Chloride 0.9% 500 ML IV SCH (15:24)
[2024-01-01 09:05] LABS: BASOPHILS ABSOLUTE AUTO 0.04 K/uL (0.00-0.20); BASOPHILS PERCENT AUTO 0.5 % (0.0-1.0); EOSINOPHILS ABSOLUTE AUTO 0.27 K/uL (0.00-0.45); EOSINOPHILS PERCENT AUTO 3.6 % (0.0-6.0); HEMATOCRIT 32.3 % (37.0-47.0); HEMOGLOBIN 10.5 g/dL (12.0-16.0); IMMATURE GRAN ABSOLUTE AUTO 0.08 K/uL (0.00-0.05); IMMATURE GRAN PERCENT AUTO 1.1 % (0.0-0.4); LYMPHOCYTES PERCENT AUTO 26.6 % (24.0-44.0); MEAN CORPUSCULAR HEMOGLOBIN 33.8 pg (28.0-32.0); MEAN CORPUSCULAR HGB CONC 32.5 g/dL (32.0-36.0); MEAN CORPUSCULAR VOLUME 103.9 fL (83.0-99.0); MEAN PLATELET VOLUME 10.3 fL (9.4-12.3); MONOCYTES ABSOLUTE AUTO 0.41 K/uL (0.00-0.80); MONOCYTES PERCENT AUTO 5.4 % (0.0-8.0); NEUTROPHILS ABSOLUTE AUTO 4.73 K/uL (1.80-7.70); NEUTROPHILS PERCENT AUTO 62.8 % (41.0-71.0); PLATELET COUNT,PLT 193 K/uL (150-400); RED BLOOD CELL COUNT 3.11 M/uL (4.10-5.30); WHITE BLOOD CELL COUNT,WBC 7.53 K/uL (3.9-11.3)
[2024-01-01 09:37] LABS: A/G RATIO 0.9 (0.9-1.6); BILIRUBIN TOTAL 0.4 mg/dL (0.2-1.0); CALCIUM 9.3 mg/dL (8.5-10.1); CARBON DIOXIDE,CO2 23.9 mmol/L (21.0-32.0); CREATININE 1.1 mg/dL (0.6-1.0); EST CRCL DRUG DOSING (CG) 28.3 mL/min; POTASSIUM,K 4.1 mmol/L (3.5-5.1); PROTEIN TOTAL,TP 6.5 g/dL (6.4-8.2)
[2024-01-01] MEDS: Iopamidol 755 MG/ML 500 ML Multipack Bottle IVPUSH STA (11:30)
[2024-01-02 06:08] LABS: BASOPHILS ABSOLUTE AUTO 0.04 K/uL (0.00-0.20); BASOPHILS PERCENT AUTO 0.6 % (0.0-1.0); EOSINOPHILS ABSOLUTE AUTO 0.24 K/uL (0.00-0.45); EOSINOPHILS PERCENT AUTO 3.5 % (0.0-6.0); HEMATOCRIT 29.3 % (37.0-47.0); HEMOGLOBIN 9.6 g/dL (12.0-16.0); IMMATURE GRAN ABSOLUTE AUTO 0.08 K/uL (0.00-0.05); IMMATURE GRAN PERCENT AUTO 1.2 % (0.0-0.4); LYMPHOCYTES ABSOLUTE AUTO 2.14 K/uL (1.00-4.80); LYMPHOCYTES PERCENT AUTO 31.5 % (24.0-44.0); MEAN CORPUSCULAR HEMOGLOBIN 33.6 pg (28.0-32.0); MEAN CORPUSCULAR HGB CONC 32.8 g/dL (32.0-36.0); MEAN CORPUSCULAR VOLUME 102.4 fL (83.0-99.0); MONOCYTES ABSOLUTE AUTO 0.36 K/uL (0.00-0.80); MONOCYTES PERCENT AUTO 5.3 % (0.0-8.0); NEUTROPHILS ABSOLUTE AUTO 3.93 K/uL (1.80-7.70); NEUTROPHILS PERCENT AUTO 57.9 % (41.0-71.0); PLATELET COUNT,PLT 177 K/uL (150-400); RED BLOOD CELL COUNT 2.86 M/uL (4.10-5.30); WHITE BLOOD CELL COUNT,WBC 6.79 K/uL (3.9-11.3)
[2024-01-02 06:40] LABS: ALBUMIN 2.8 g/dL (3.4-5.0); BILIRUBIN TOTAL 0.2 mg/dL (0.2-1.0); CARBON DIOXIDE,CO2 24.1 mmol/L (21.0-32.0); CREATININE 1.2 mg/dL (0.6-1.0); EST CRCL DRUG DOSING (CG) 25.94 mL/min; POTASSIUM,K 3.9 mmol/L (3.5-5.1); PROTEIN TOTAL,TP 6.1 g/dL (6.4-8.2)
[2024-01-02 06:42] LABS: A/G RATIO 0.9 (0.9-1.6)
[2024-01-02] MEDS ORDERED: Sodium Chloride 0.9% 500 ML IV SCH (11:30)
[2024-01-02 17:08] VITALS: BP 131/60; PULSE 67
== END 2024-01-02 18:00 | disposition home health service (06) | DRG 551 ==
LOC: MW.ED 06:49 → MW.MS 10:44
PROVIDERS: ADMIT Family Medicine; ATTEND Family Medicine
DX: S22.039A Unspecified fracture of third thoracic vertebra, initial encounter for closed fracture (principal); M25.511 Pain in right shoulder; J18.9 Pneumonia, unspecified organism; R55 Syncope and collapse; I10 Essential (primary) hypertension; M81.0 Age-related osteoporosis without current pathological fracture; Z66 Do not resuscitate; Z79.02 Long term (current) use of antithrombotics/antiplatelets; E78.00 Pure hypercholesterolemia, unspecified; M19.90 Unspecified osteoarthritis, unspecified site; F32.A Depression, unspecified; E03.9 Hypothyroidism, unspecified; M54.9 Dorsalgia, unspecified; G89.29 Other chronic pain; E86.0 Dehydration; M19.011 Primary osteoarthritis, right shoulder; M40.204 Unspecified kyphosis, thoracic region; I25.10 Atherosclerotic heart disease of native coronary artery without angina pectoris; Z86.718 Personal history of other venous thrombosis and embolism; Z79.899 Other long term (current) drug therapy; Z79.01 Long term (current) use of anticoagulants; Z87.440 Personal history of urinary (tract) infections; Z98.890 Other specified postprocedural states; Z86.711 Personal history of pulmonary embolism; Z90.49 Acquired absence of other specified parts of digestive tract; Z93.3 Colostomy status; W19.XXXA Unspecified fall, initial encounter
CPT/HCPCS: 36415; 70450; 72072; 72125; 73030; 73060; 80053; 85025; A9270; J3490; J7040; 71046; 71046-26; 71275; 71275-26; 73200-26-RT; 73200-RT; 81001; 97162-GP; 99285; C9113; J0696; Q9967

== ENCOUNTER 2024-03-11 10:34 | Emergency (ER) | payer MEDICARE, BC ==
[2024-03-11 10:53] VITALS: BP 119/54; PULSE 84
== END 2024-03-11 11:21 | disposition home or self-care (01) ==
LOC: MW.ED 10:34
DX: S70.262A Insect bite (nonvenomous), left hip, initial encounter (principal); E03.9 Hypothyroidism, unspecified; E78.00 Pure hypercholesterolemia, unspecified; Z79.899 Other long term (current) drug therapy; Z79.01 Long term (current) use of anticoagulants; Z79.890 Hormone replacement therapy; Z90.49 Acquired absence of other specified parts of digestive tract; W57.XXXA Bitten or stung by nonvenomous insect and other nonvenomous arthropods, initial encounter
CPT/HCPCS: 99282; 99283

== ENCOUNTER 2024-04-20 17:32 | Emergency (ER) | payer MEDICARE, BC ==
[2024-04-20] MEDS: Morphine 2 MG/ML SYRINGE IVPUSH ONE ×2 (17:49→18:18)
[2024-04-20] MEDS: Sodium Chloride 0.9% 10 ML Syringe FLUSH PRN (17:51)
[2024-04-20] MEDS: Sodium Chloride 0.9% 2.5 ML Syringe FLUSH PRN (17:51)
[2024-04-20 17:59] LABS: BASOPHILS ABSOLUTE AUTO 0.02 K/uL (0.00-0.20); BASOPHILS PERCENT AUTO 0.4 % (0.0-1.0); EOSINOPHILS ABSOLUTE AUTO 0.09 K/uL (0.00-0.45); EOSINOPHILS PERCENT AUTO 1.7 % (0.0-6.0); HEMATOCRIT 34.3 % (37.0-47.0); IMMATURE GRAN ABSOLUTE AUTO 0.03 K/uL (0.00-0.05); IMMATURE GRAN PERCENT AUTO 0.6 % (0.0-0.4); LYMPHOCYTES ABSOLUTE AUTO 2.23 K/uL (1.00-4.80); MEAN CORPUSCULAR HEMOGLOBIN 33.2 pg (28.0-32.0); MEAN CORPUSCULAR HGB CONC 32.1 g/dL (32.0-36.0); MEAN CORPUSCULAR VOLUME 103.6 fL (83.0-99.0); MEAN PLATELET VOLUME 10.9 fL (9.4-12.3); MONOCYTES ABSOLUTE AUTO 0.34 K/uL (0.00-0.80); MONOCYTES PERCENT AUTO 6.4 % (0.0-8.0); NEUTROPHILS PERCENT AUTO 48.9 % (41.0-71.0); PLATELET COUNT,PLT 117 K/uL (150-400); RED BLOOD CELL COUNT 3.31 M/uL (4.10-5.30); WHITE BLOOD CELL COUNT,WBC 5.31 K/uL (3.9-11.3)
[2024-04-20] MEDS: Morphine 2 MG/ML SYRINGE ONE (18:17)
[2024-04-20 18:23] LABS: INR 1.14 (0.86-1.11); PTT,PARTIAL THROMBOPLSTIN TIME 26.2 SEC (23.9-30.7)
[2024-04-20 18:24] LABS: A/G RATIO 1.3 (0.9-1.6); BILIRUBIN TOTAL 0.2 mg/dL (0.2-1.0); CALCIUM 8.8 mg/dL (8.5-10.1); CARBON DIOXIDE,CO2 25.3 mmol/L (21.0-32.0); CREATININE 1.4 mg/dL (0.6-1.0); EST CRCL DRUG DOSING (CG) 22.9 mL/min
[2024-04-20] MEDS: HYDROmorphone 0.5 MG/0.5 ML Syringe IVPUSH ONE ×2 (18:49→19:56)
[2024-04-20] MEDS ORDERED: Bupivacaine 0.5%/EPINEPHrine 1:200,000 30 ML SDV ONE (19:00)
[2024-04-20 19:45] VITALS: PULSE 72
[2024-04-20] MEDS: Bupivacaine 0.25% 10 ML SDV INJECT ONE (20:25)
[2024-04-20] MEDS: Ondansetron 4 MG/2 ML SDV IVPUSH ONE (20:25)
[2024-04-20 22:04] VITALS: BP 132/78
== END 2024-04-20 23:04 ==
LOC: MW.ED 17:32
DX: S72.011A Unspecified intracapsular fracture of right femur, initial encounter for closed fracture (principal); E78.00 Pure hypercholesterolemia, unspecified; E03.9 Hypothyroidism, unspecified; Z79.899 Other long term (current) drug therapy; X50.9XXA Other and unspecified overexertion or strenuous movements or postures, initial encounter
CPT/HCPCS: 36415; 70450; 71045; 72125; 73502; 80053; 85025; 85610; 85730; 86850; 86900; 86901; 96374; 96375; 96376; 99285; J1170; J2270; J2405; J3490

== ENCOUNTER 2025-05-12 09:45 | Day surgery (SDC) | payer MEDICARE, BC ==
[~2025-05-12 09:45] MED LIST: Albuterol 0.083% 2.5 MG/3 ML Neb Soln NEB PRN; Naloxone 0.4 MG/ML SDV IVPUSH PRN; Ondansetron 4 MG/2 ML SDV IVPUSH PRN; Sodium Chloride 0.9% 10 ML Syringe FLUSH PRN; Sodium Chloride 0.9% 2.5 ML Syringe FLUSH PRN; fentaNYL 50 MCG/ML SDV IVPUSH PRN
[2025-05-12] MEDS: Lactated Ringers 1,000 ML IV SCH (10:29)
[2025-05-12] MEDS ORDERED: Midazolam 1 MG/ML 2 ML SDV ONE (11:27)
[2025-05-12] MEDS ORDERED: fentaNYL 100 MCG/2 ML SDV ONE (11:27)
[2025-05-12] MEDS ORDERED: Propofol 200 MG/20 ML SDV ONE (11:28)
[2025-05-12 13:35] VITALS: BP 106/53; PULSE 60
== END 2025-05-12 13:20 | disposition home or self-care (01) ==
LOC: MW.SDS 09:45
PROVIDERS: ATTEND Surgery
DX: K56.41 Fecal impaction (principal); K62.6 Ulcer of anus and rectum; N18.30 Chronic kidney disease, stage 3 unspecified; E03.9 Hypothyroidism, unspecified; F41.8 Other specified anxiety disorders; Z87.891 Personal history of nicotine dependence; Z93.2 Ileostomy status; Z88.5 Allergy status to narcotic agent; Z88.6 Allergy status to analgesic agent; Z79.890 Hormone replacement therapy; Z79.899 Other long term (current) drug therapy
CPT/HCPCS: 45332; J2003; J2250; J2704; J3010; J7120